=== PATIENT | female | born 1960 | race Caucasian/White ===

== ENCOUNTER 2019-01-20 10:36 | Emergency (ER) | payer OTHER, SELFPAY ==
[2019-01-20 10:43] VITALS: BP 145/78; PULSE 62; RESP 20; TEMP 36.8; O2SAT 96; BMI 35.4
[2019-01-20] MEDS: OXYMETAZOLINE NASAL SPRAY 15 ML 2 SPRAYS NASAL (11:04)
[2019-01-20 11:34] VITALS: BP 145/75; PULSE 76; RESP 20; O2SAT 96
--- NOTE | 2019-01-20 12:34 | ED_ITS ---
HPI - Epistaxis General Chief complaint: Nasal Problem Stated complaint: bleeding nose for 1.5 hours, yesterday Time Seen by Provider: 01/20/19 10:42 Source: patient and family Mode of arrival: ambulatory Limitations: no limitations History of Present Illness HPI Narrative: Patient complains of epistaxis that started 2 hours ago. She states that she has ?tried everything? at home, and has not been able to get the bleeding to stop. Patient states she also had an episode last night that lasted about 45 minutes, but stopped on its own. Patient states the bleeding is mainly out of the right nostril which is the side on which she had a crushing injury to the sinus years ago. She states she has had occasional nosebleeds but nothing like this. She has never had surgery on her sinuses. She sought an fruit grading supervisor in recent years, who did a scope of her sinuses and vocal cords, and stated that her anatomy appeared altered from the prior injury to the sinus. Patient denies any nasal congestion or cough recently. She has been sneezing a little more than usual. She denies any high blood pressure. She is not on any anticoagulants. Patient denies any recent trauma to her nose. She has not been blowing her nose excessively. Patient states she has a history of asthma and has had breast and lung cancer, but is otherwise fairly healthy. No other complaints at this time. Related Data Home Medications Medication Instructions Recorded Confirmed ALBUTEROL SULFATE (Ventolin / 1 - 2 puff INH #0 11/09/10 Proventil) trazodone 100 mg PO QDAY #0 03/07/13 OMEGA-3 FATTY ACIDS (FISH OIL) 900 mg PO QDAY #0 09/27/16 VITAMIN D (Vitamin D3) 5,000 u PO QDAY #0 09/27/16 [RED RICE YEAST] 1,200 mg PO QDAY #0 09/27/16 budesonide-formoterol [Symbicort] 2 inh INH BID #0 09/27/16 calcium carbonate [Tums Ultra] 1,000 mg PO #0 09/27/16 fluoxetine [Prozac] 20 mg PO QDAY #0 09/27/16 fluticasone propionate [Flovent 3 spray INH BID #0 09/27/16 HFA] letrozole [Femara] 2.5 mg PO QDAY #0 09/27/16 lithium carbonate 300 mg PO HS #0 09/27/16 multivitamin [Multiple Vitamins] 1 tab PO QDAY #0 09/27/16 omeprazole 40 mg PO BID #0 09/27/16 vitamin E 400 u PO QDAY #0 09/27/16 Previous Rx's Medication Instructions Recorded hydrocodone-chlorpheniramine 5 ml PO Q6HP PRN #115 ml 06/22/16 [Tussionex Pennkinetic ER] sucralfate [Carafate] 1 gm PO QID 14 Days #0 ml 09/27/16 Allergies Allergy/AdvReac Type Severity Reaction Status Date / Time aspirin Allergy Unknown Verified 01/20/19 10:48 chlorpheniramine Allergy Unknown Verified 01/20/19 10:48 codeine Allergy Unknown Verified 01/20/19 10:48 dextromethorphan Allergy Unknown Verified 01/20/19 10:48 gabapentin Allergy Unknown Verified 01/20/19 10:48 guaifenesin Allergy Unknown Verified 01/20/19 10:48 hydromorphone Allergy Unknown Verified 01/20/19 10:48 iodine Allergy Unknown Verified 01/20/19 10:48 latex Allergy Unknown Verified 01/20/19 10:48 montelukast Allergy Unknown Verified 01/20/19 10:48 pecan nut [PECAN NUT] Allergy Unknown Verified 01/20/19 10:48 pseudoephedrine Allergy Unknown Verified 01/20/19 10:48 shellfish derived Allergy Unknown Verified 01/20/19 10:48 [SHELLFISH DERIVED] Sulfa (Sulfonamide Allergy Unknown Verified 01/20/19 10:48 Antibiotics) walnut [WALNUT] Allergy Unknown Verified 01/20/19 10:48 Review of Systems Constitutional Denies chills, Denies fever(s), Denies lethargy and Denies weakness Eyes Denies change in vision, Denies eye discharge, Denies irritation and Denies loss of vision ENT Ears, Nose, Mouth, and Throat: Denies change in voice, Reports epistaxis, Denies neck pain and Denies sore throat Cardiovascular Denies chest pain, Denies irregular heart rhythm, Denies lightheadedness, Denies palpitations, Denies dyspnea, Denies dyspnea on exertion and Denies orthopnea Respiratory Denies cough, Denies dyspnea, Denies dyspnea on exertion and Denies wheezing Gastrointestinal Gastrointestinal: Denies abdominal pain, Denies change in bowel habits, Denies diarrhea, Denies nausea and Denies vomiting Genitourinary Denies hematuria, Denies flank pain, Denies urinary incontinence and Denies urinary urgency Musculoskeletal Denies neck pain Integumentary/Breasts Denies pruritus, Denies erythema, Denies rash and Denies wounds Neurologic Denies confusion, Denies loss of vision and Denies weakness Psychiatric Denies anxiety, Denies confusion, Denies depression, Denies homicidal ideation and Denies suicidal ideation Endocrine Denies palpitations Hematologic/Lymphatic Denies easy bruising Allergic/Immunologic Denies wheezing [facility] Medical History Injury of nasal sinus (Acute) Epistaxis (Acute) Radiation-induced esophagitis (Acute) Cough (Acute) Asthma (Acute) Gastritis (Acute) Social History Smoking Status: Never smoker Social History Smoking Status: Never smoker Exam Narrative Exam Narrative: The HEENT exam continued: Patient has clamps on her nose, but when these are removed, no epistaxis recurs. The patient has no bloody residue in either of her nares. Her nasal passages are clear, and no erosions or lesions are noted within the visible nasal passage on either side. There is no septal deviation that is apparent. No mucosal edema. Minimal mucus discharge is noted and is clear. Initial Vital Signs Initial Vital Signs: Vital Signs Temperature 98.2 F 01/20/19 10:43 Pulse Rate 62 01/20/19 10:43 Respiratory Rate 20 01/20/19 10:43 Blood Pressure 145/78 H 01/20/19 10:43 Pulse Oximetry 96 01/20/19 10:43 Const General: cooperative and well developed Nutritional Appearance: well nourished Orientation: alert, awake, oriented x3 and not confused [facility] Head: normocephalic and atraumatic Ears: external ears normal Nose: external nose normal, septum normal, No epistaxis (See above), No foreign body in naris, No mucous membranes and turbinates abnormal and No nasal discharge Face and sinus: sinuses nontender, face symmetric, no sinus tenderness and No dry mucous membranes Mouth: oral mucosae normal and moist mucous membranes Teeth and gingiva: dentition normal Throat: tonsils normal and uvula midline Eyes General: appearance normal, both eyes and all related structures Eyelids: eyelids normal Conjunctivae: conjunctivae normal Sclera: sclerae normal Pupils: PERRL EOM: EOM intact bilaterally Neck Neck: normal visual inspection, trachea midline, No lymphadenopathy, No midline deformity and No JVD Lymphatic: No lymphedema Chest Chest: normal inspection of the chest Resp Effort & Inspection: normal respiratory effort, able to speak in complete sentences, no respiratory distress and no use of accessory muscles Auscultation: clear to auscultation bilaterally, no rales, no rhonchi and no wheezes Cardio Rate: regular rate Rhythm: regular rhythm Heart Sounds: no click, no gallops, no murmurs and no rubs Pulses: normal peripheral pulses Back/Spine/Pelvis Back: No CVA tenderness Cervical Spine: cervical ROM normal and No pain with cervical ROM Thoracic/Lumbar Spine: thoracic and lumbar spine normal to inspection Skin General: no rashes or lesions noted, No jaundice and No petechiae Neuro General: alert, oriented x3, gait normal and no focal motor deficits Speech: speech normal Extrem General: full ROM, no clubbing, cyanosis or edema, no pedal edema and no calf tenderness Psych Appearance: well kempt Mental Status: mental status grossly normal Attitude: cooperative Thought Content: normal and suicidality Judgment: judgment good Course Course Narrative: The patient was not bleeding on exam when I evaluated her. I gave her a spray of Afrin on each side and replaced the clamps. I discussed with her that most likely, her bleeding is coming from about higher up, probably where her injury was, and as such, is not visible with the naso scope in the emergency department. As such, I have discussed with her that her options are to either let the area be, as it has stopped bleeding, and manage conservatively, or we can place nasal packing. We have discussed the pluses and minuses of both, but ultimately, patient and her decided that she will forego packing and try to avoid getting the bleeding started again. We have d iscussed that if it does start again, she should immediately replace the clamps and try to get it to stop on its own. She may need to return to the emergency department, should she continue to have issues with bleeding, at which time we will strongly consider packing. Patient did not have any recurrence of bleeding while in the ED. We have discussed the usual indications for return. Orders Ordered: Discontinued Medications Oxymetazoline HCl (Afrin) 2 sprays NASAL NOW ONE Stop: 01/20/19 11:03 Last Admin: 01/20/19 11:04 Dose: 2 sprays Vital Signs - 8 hr 01/20/19 10:43 01/20/19 11:34 Temperature 98.2 F Pulse Rate 62 76 Respiratory Rate 20 20 Blood Pressure 145/78 H 145/75 H Pulse Oximetry 96 96 MDM - Epistaxis Medical Records Attestation: I reviewed the patient's medical records. Discharge Plan Departure Patient Disposition: Home Clinical Impression: Epistaxis Discharge Date/Time: 01/20/19 11:35 Interventions: ED Discharge Assessment Last Done: 01/20/19 11:34 Instructions: DI for Nosebleed Prescriptions: No Action ALBUTEROL SULFATE (Ventolin / Proventil) 1 - 2 puff INH Qty: 0 RF: 0 trazodone 50 MG tablet 100 mg PO QDAY Qty: 0 RF: 0 hydrocodone-chlorpheniramine [Tussionex Pennkinetic ER] 115 ML suspension,extended rel 12 hr 5 ml PO Q6HP PRNQty: 115 RF: 0 omeprazole 40 MG capsule,delayed release(DR/EC) 40 mg PO BID Qty: 0 RF: 0 lithium carbonate 300 MG capsule 300 mg PO HS Qty: 0 RF: 0 multivitamin [Multiple Vitamins] 1 EACH tablet 1 tab PO QDAY Qty: 0 RF: 0 fluoxetine [Prozac] 40 MG capsule 20 mg PO QDAY Qty: 0 RF: 0 calcium carbonate [Tums Ultra] 1,000 MG tablet,chewable 1,000 mg PO Qty: 0 RF: 0 letrozole [Femara] 2.5 MG tablet 2.5 mg PO QDAY Qty: 0 RF: 0 OMEGA-3 FATTY ACIDS (FISH OIL) 900 mg PO QDAY Qty: 0 RF: 0 VITAMIN D (Vitamin D3) 5,000 u PO QDAY Qty: 0 RF: 0 [RED RICE YEAST] 1,200 mg PO QDAY Qty: 0 RF: 0 vitamin E 100 UNIT capsule 400 u PO QDAY Qty: 0 RF: 0 fluticasone propionate [Flovent HFA] 12 GM HFA aerosol inhaler 3 spray INH BID Qty: 0 RF: 0 budesonide-formoterol [Symbicort] 160 MCG/4.5 MCG HFA aerosol inhaler 2 inh INH BID Qty: 0 RF: 0 sucralfate [Carafate] 1 GM/10 ML suspension 1 gm PO QID 14 Days Qty: 0 RF: 0 Referrals: Fazal Veras MD [Physician] -
== END 2019-01-20 11:35 | disposition home or self-care (01) ==
PROVIDERS: Emergency Provider Emergency Medicine
DX: R04.0 Epistaxis (principal)
CPT/HCPCS: 99282

== ENCOUNTER 2020-12-06 14:20 | Inpatient (IN) | payer OTHER, SELFPAY ==
[2020-12-06] VITALS (19 sets, daily range): BP systolic 132–184; BP diastolic 63–89; PULSE 73–94; RESP 16–26; TEMP 36.4–37; O2SAT 88–98; BMI 33.6
--- NOTE | 2020-12-06 14:36 | DI.RAD.S_ITS ---
PROCEDURE: XR CHEST 1V INDICATIONS: chest pain TECHNIQUE: One view of the chest was acquired. COMPARISON: [facility], , CHEST 2 VIEW, 06/22/2016, 16:41. [facility], , CHEST 2 VIEW, 09/08/2015, 14:05. FINDINGS: Surgical changes and devices: Port-A-Cath from right-sided approach extends into the expected position of the distal SVC. Port-A-Cath is in normal position, from right-sided approach. No source of new chest pain is found.. Lungs and pleura: Lungs are clear. No pleural effusions or pneumothorax. Mediastinum: Mediastinal contours appear normal. Heart size is normal. Bones and chest wall: No suspicious bony lesions. Overlying soft tissues appear unremarkable. IMPRESSION: Port-A-Cath in normal position from right-sided approach. No source of new pain is seen. Dictated by: Dwaine Mccain M.D. on 12/06/2020 at 14:56 Approved by: Dwaine Mccain M.D. on 12/06/2020 at 14:57
--- NOTE | 2020-12-06 14:52 | ED_ITS ---
HPI - SOB/Dyspnea General Chief Complaint: Shortness of Breath/Dyspnea Stated Complaint: shortness breath/ asthma/ thrush/ cancer patient Time Seen by Provider: 12/06/20 14:51 Source: patient and family Mode of arrival: Ambulatory Limitations: no limitations History of Present Illness HPI Narrative: This is a 59-year-old female comes emergency department with complaint of shortness of breath. Patient states she was walking today and developed some increasing shortness of breath. She has had some mild chills but she had immunotherapy treatment recently. Fevers. She has had some cough with some greenish productive sputum, she did develop some chest pain today which improved after she was put on oxygen here in the emergency department. She has had some nausea but no vomiting. She has had some sweats. She denies any swelling in her extremities. Patient has known metastatic lung cancer as well as history of breast cancer. She is on Synthroid, she also has a history of asthma and is on Flovent, albuterol and Symbicort. She was recently placed on a Z-Jeb and prednisone on November [address] scan on the 07 of November showing some increasing changes in her lungs that were unclear if it was worsening metastatic lung cancer versus a inflammatory or infectious change. Patient has completed her prednisone. She follows with Dr. Wong as her primary care physician. Her PCP is Dr. Baker at the [facility]. Tobacco, no illicit or ETOH. Patient has had a history of right knee surgery, cholecystectomy and bilateral mastectomy. She does have a right sided port. Related Data Home Medications Medication Instructions Recorded Confirmed ALBUTEROL SULFATE (Ventolin / 1 - 2 puff INH #0 11/09/10 07/18/19 Proventil) VITAMIN D (Vitamin D3) 5,000 u PO QDAY #0 09/27/16 07/18/19 budesonide-formoterol [Symbicort] 2 inh INH BID #0 09/27/16 07/18/19 fluoxetine [Prozac] 20 mg PO QDAY #0 09/27/16 12/06/20 multivitamin [Multiple Vitamins] 1 tab PO QDAY #0 09/27/16 07/18/19 budesonide-formoterol INHALATION 07/18/19 07/18/19 letrozole 2.5 mg tablet 2.5 mg PO DAILY 07/18/19 12/06/20 meclizine 25 mg tablet 25 mg PO DAILY 07/18/19 07/18/19 Allergies Allergy/AdvReac Type Severity Reaction Status Date / Time adhesive Allergy Unknown Verified 12/06/20 15:53 aspirin Allergy Unknown Verified 07/18/19 13:19 chlorpheniramine Allergy Unknown Verified 07/18/19 13:19 codeine Allergy Unknown Verified 07/18/19 13:19 dextromethorphan Allergy Unknown Verified 07/18/19 13:19 gabapentin Allergy Unknown Verified 07/18/19 13:19 guaifenesin Allergy Unknown Verified 07/18/19 13:19 hydromorphone Allergy Unknown Verified 07/18/19 13:19 iodine Allergy Unknown Verified 07/18/19 13:19 latex Allergy Unknown Verified 01/20/19 10:48 montelukast Allergy Unknown Verified 01/20/19 10:48 pecan nut [PECAN NUT] Allergy Unknown Verified 01/20/19 10:48 pseudoephedrine Allergy Unknown Verified 01/20/19 10:48 shellfish derived Allergy Unknown Verified 01/20/19 10:48 [SHELLFISH DERIVED] Sulfa (Sulfonamide Allergy Unknown Verified 01/20/19 10:48 Antibiotics) walnut [WALNUT] Allergy Unknown Verified 01/20/19 10:48 Review of Systems Review of Systems ROS Unobtainable: All systems reviewed & are unremarkable except as noted in HPI and below Patient History Medical History Acute idiopathic pericarditis Anxiety Asthma Carcinoma of left lung Cough Epistaxis Gastritis Hyperglycemia Hyperlipidemia Hyperthyroidism Injury of nasal sinus Insomnia Invasive ductal carcinoma of left breast in female Migraine Radiation-induced esophagitis Vertigo Social History household members: spouse Smoking Status: Never smoker Smoking Status: Never smoker alcohol intake frequency: 0-2 drinks per day Substance Use Type: does not use Exam Narrative Exam Narrative: GENERAL: Alert and oriented x three, well-nourished female in mild distress. HEENT: Head normocephalic, atraumatic, EOMI, pupils reactive, face symmetric, moist mucous membranes NECK: Supple, full range of motion CARDIOVASCULAR: Regular rate and rhythm without murmurs, rubs or gallops. Port on right chest. RESPIRATORY: Breath sounds equal bilaterally, no wheezes rales or rhonchi appreciated. No tachypnea. ABDOMEN: Soft, nontender. Normoactive bowel sounds all 4 quadrants. No guarding or rebound, rigidity, no mass : No CVA tenderness EXTREMITIES: Normal range of motion, no edema. Lower extremities appear equal in Circumference. Neurovascularly intact NEUROLOGICAL: Cranial nerves II through XII grossly intact. Moving all extremities SKIN: Warm, dry, no petechiae, no rashes or lesions. Initial Vital Signs Initial Vital Signs: Vital Signs Temperature 98.6 F 12/06/20 14:30 Pulse Rate 94 H 12/06/20 14:30 Respiratory Rate 18 12/06/20 14:30 Blood Pressure 142/89 H 12/06/20 14:30 Pulse Oximetry 90 L 12/06/20 14:30 Course Orders Ordered: ED Orders 12/06/20 14:36 XR chest 1V Stat EKG-12 Lead Stat 12/06/20 14:51 COVID19 Stat 12/06/20 15:15 Complete Blood Count AUTO DIFF Stat Comprehensive Metabolic Panel Stat Lactate (Lactic Acid) Stat Lipase Stat NT-proBNP (BNP-Adult 18+) Stat Partial Thromboplastin Time Stat Procalcitonin Stat Prothrombin Time INR Stat Troponin & CK Cardiac Panel Stat 12/06/20 15:49 CT angio chest PE protocol Stat 12/06/20 17:35 Respiratory Panel (Film Array) Stat Discontinued Medications Albuterol (Albuterol 2.5 Mg/3 Ml Neb (Adult)) 20 mg INH NOW ONE Stop: 12/06/20 17:19 Albuterol (Albuterol 2.5 Mg/3 Ml Neb (Adult)) 2.5 mg INH NOW ONE Stop: 12/06/20 17:29 Last Admin: 12/06/20 17:29 Dose: 2.5 mg Documented by: BRADEN Diphenhydramine HCl (Diphenhydramine 50 Mg/Ml Vial) 50 mg IV NOW ONE Stop: 12/06/20 15:46 Last Admin: 12/06/20 15:54 Dose: 50 mg Documented by: CHINEDU Methylprednisolone (Methylprednisolone 125 Mg/2 Ml Vial) 125 mg IV NOW ONE Stop: 12/06/20 15:46 Last Admin: 12/06/20 16:00 Dose: Not Given Documented by: ALY Methylprednisolone (Methylprednisolone 125 Mg/2 Ml Vial) 125 mg IV NOW ONE Stop: 12/06/20 15:51 Last Admin: 12/06/20 15:54 Dose: 125 mg Documented by: CHINEDU Morphine Sulfate (Morphine 2 Mg/Ml Inj) 2 mg IV NOW ONE Stop: 12/06/20 17:40 Last Admin: 12/06/20 17:44 Dose: 2 mg Documented by: CHINEDU Vital Signs Vital signs: Vital Signs - 8 hr 12/06/20 14:30 12/06/20 14:38 12/06/20 14:43 Temperature 98.6 F Pulse Rate 94 H 87 Respiratory Rate 18 24 Blood Pressure 142/89 H Pulse Oximetry 90 L 90 L 95 12/06/20 15:00 12/06/20 15:01 12/06/20 15:30 Temperature Pulse Rate 83 81 76 Respiratory Rate 26 H Blood Pressure 145/70 H 140/67 Pulse Oximetry 95 95 96 12/06/20 16:04 12/06/20 16:06 12/06/20 16:32 Temperature Pulse Rate 83 77 76 Respiratory Rate Blood Pressure 141/65 H Pulse Oximetry 90 L 98 98 12/06/20 16:33 12/06/20 16:50 12/06/20 17:00 Temperature Pulse Rate 75 73 76 Respiratory Rate Blood Pressure 184/88 H 134/63 Pulse Oximetry 98 94 94 12/06/20 17:01 12/06/20 17:29 12/06/20 17:30 Temperature Pulse Rate 76 75 79 Respiratory Rate 16 Blood Pressure 135/63 132/64 Pulse Oximetry 94 89 L 92 12/06/20 17:37 Temperature Pulse Rate Respiratory Rate Blood Pressure Pulse Oximetry 88 L MDM - SOB/Dyspnea Lab Data Attestation: I reviewed the patient's lab results. Result diagrams: 12/06/20 15:15 12/06/20 15:15 Labs: Lab Results 12/06/20 12/06/20 12/06/20 Range/Units 14:51 15:15 15:15 WBC 7.5 (4.5-11.0) X10^3/uL RBC 4.50 (4.0-5.2) X10^6/uL Hgb 12.9 (12.0-16.0) g/dL Hct 39.3 (36-46) % MCV 87.2 (80-100) fL MCH 28.6 (26-34) PG MCHC 32.8 (30-36) % RDW 13.5 (11.6-14.8) % Plt Count 397 (150-400) X10^3/uL Neut % (Auto) 68.5 (50-75) % Lymph % (Auto) 19.1 L (25-40) % [place] % (Auto) 9.1 (3-14) % Eos % (Auto) 2.8 (2-4) % Baso % (Auto) 0.5 (0-2) % Neut # (Auto) 5100 (5204-1002) /uL Lymph # (Auto) 1400 (5430-1943) /uL [place] # (Auto) 700 (0-900) /uL Eos # (Auto) 200 (0-450) /uL Baso # (Auto) 0 (0-100) /uL PT 13.1 H (10.1-12.7) SECONDS INR 1.1 (0.9-1.3) APTT 140 H* (26.4-36.2) SECONDS Sodium (137-145) mmol/L Potassium (3.4-5.1) mmol/L Chloride (98-107) mmol/L Carbon Dioxide (22-32) mmol/L BUN (7-17) mg/dL Creatinine (0.52-1.04) mg/dL Estimated GFR (>60) mL/min BUN/Creatinine Ratio (6-22) Glucose (80-110) mg/dL Lactate (0.7-2.1) mmol/L Calcium (8.4-10.2) mg/dL Total Bilirubin (0.2-1.3) mg/dL AST (14-36) IU/L ALT (<35) IU/L Alkaline Phosphatase (38-126) U/L Total Creatine Kinase (30-135) U/L CK-MB (CK-2) CK-MB (CK-2) Rel Index Troponin I (0.01-0.034) ng/mL NT-Pro-B Natriuret Pep (<125) pg/mL Total Protein (6.3-8.2) g/dL Albumin (3.5-5.0) g/dL Globulin (1.7-4.1) g/dL Albumin/Globulin Ratio (1.0-2.8) Lipase (23-300) U/L Procalcitonin (<0.5) ng/mL Chlamy pneumoniae PCR (Not Detect) Adenovirus (PCR) (Not Detect) B.parapertussis DNA PCR (Not Detect) Coronavirus OC43 (PCR) (Not Detect) Coronavirus HKU1 (PCR) (Not Detect) Coronavirus 229E (PCR) (Not Detect) SARS-CoV-2 (PCR) Negative (Negative) Coronavirus NL63 (PCR) (Not Detect) Human Metapneumovir PCR (Not Detect) Influenza Type A (PCR) (Not Detect) Influenza Type B (PCR) (Not Detect) M. pneumoniae (PCR) (Not Detect) Parainfluenza 1 (PCR) (Not Detect) Parainfluenza 2 (PCR) (Not Detect) Parainfluenza 3 (PCR) (Not Detect) Parainfluenza 4 (PCR) (Not Detect) RSV (PCR) (Not Detect) Entero/Rhino (PCR) (Not Detect) 12/06/20 12/06/20 12/06/20 Range/Units 15:15 15:15 15:15 WBC (4.5-11.0) X10^3/uL RBC (4.0-5.2) X10^6/uL Hgb (12.0-16.0) g/dL Hct (36-46) % MCV (80-100) fL MCH (26-34) PG MCHC (30-36) % RDW (11.6-14.8) % Plt Count (150-400) X10^3/uL Neut % (Auto) (50-75) % Lymph % (Auto) (25-40) % [place] % (Auto) (3-14) % Eos % (Auto) (2-4) % Baso % (Auto) (0-2) % Neut # (Auto) (5187-9194) /uL Lymph # (Auto) (7144-4140) /uL [place] # (Auto) (0-900) /uL Eos # (Auto) (0-450) /uL Baso # (Auto) (0-100) /uL PT (10.1-12.7) SECONDS INR (0.9-1.3) APTT (26.4-36.2) SECONDS Sodium 134 L (137-145) mmol/L Potassium 3.7 (3.4-5.1) mmol/L Chloride 101 (98-107) mmol/L Carbon Dioxide 29 (22-32) mmol/L BUN 10 (7-17) mg/dL Creatinine 0.84 (0.52-1.04) mg/dL Estimated GFR > 60.0 (>60) mL/min BUN/Creatinine Ratio 11.9 (6-22) Glucose 110 (80-110) mg/dL Lactate 1.0 (0.7-2.1) mmol/L Calcium 9.4 (8.4-10.2) mg/dL Total Bilirubin 0.2 (0.2-1.3) mg/dL AST 38 H (14-36) IU/L ALT 50 H (<35) IU/L Alkaline Phosphatase 140 H (38-126) U/L Total Creatine Kinase 56 (30-135) U/L CK-MB (CK-2) TNP CK-MB (CK-2) Rel Index TNP Troponin I < 0.012 (0.01-0.034) ng/mL NT-Pro-B Natriuret Pep (<125) pg/mL Total Protein 6.9 (6.3-8.2) g/dL Albumin 4.0 (3.5-5.0) g/dL Globulin 2.9 (1.7-4.1) g/dL Albumin/Globulin Ratio 1.4 (1.0-2.8) Lipase 40 (23-300) U/L Procalcitonin 0.04 (<0.5) ng/mL Chlamy pneumoniae PCR (Not Detect) Adenovirus (PCR) (Not Detect) B.parapertussis DNA PCR (Not Detect) Coronavirus OC43 (PCR) (Not Detect) Coronavirus HKU1 (PCR) (Not Detect) Coronavirus 229E (PCR) (Not Detect) SARS-CoV-2 (PCR) (Negative) Coronavirus NL63 (PCR) (Not Detect) Human Metapneumovir PCR (Not Detect) Influenza Type A (PCR) (Not Detect) Influenza Type B (PCR) (Not Detect) M. pneumoniae (PCR) (Not Detect) Parainfluenza 1 (PCR) (Not Detect) Parainfluenza 2 (PCR) (Not Detect) Parainfluenza 3 (PCR) (Not Detect) Parainfluenza 4 (PCR) (Not Detect) RSV (PCR) (Not Detect) Entero/Rhino (PCR) (Not Detect) 12/06/20 12/06/20 Range/Units 15:15 17:35 WBC (4.5-11.0) X10^3/uL RBC (4.0-5.2) X10^6/uL Hgb (12.0-16.0) g/dL Hct (36-46) % MCV (80-100) fL MCH (26-34) PG MCHC (30-36) % RDW (11.6-14.8) % Plt Count (150-400) X10^3/uL Neut % (Auto) (50-75) % Lymph % (Auto) (25-40) % [place] % (Auto) (3-14) % Eos % (Auto) (2-4) % Baso % (Auto) (0-2) % Neut # (Auto) (5910-0858) /uL Lymph # (Auto) (9506-3647) /uL [place] # (Auto) (0-900) /uL Eos # (Auto) (0-450) /uL Baso # (Auto) (0-100) /uL PT (10.1-12.7) SECONDS INR (0.9-1.3) APTT (26.4-36.2) SECONDS Sodium (137-145) mmol/L Potassium (3.4-5.1) mmol/L Chloride (98-107) mmol/L Carbon Dioxide (22-32) mmol/L BUN (7-17) mg/dL Creatinine (0.52-1.04) mg/dL Estimated GFR (>60) mL/min BUN/Creatinine Ratio (6-22) Glucose (80-110) mg/dL Lactate (0.7-2.1) mmol/L Calcium (8.4-10.2) mg/dL Total Bilirubin (0.2-1.3) mg/dL AST (14-36) IU/L ALT (<35) IU/L Alkaline Phosphatase (38-126) U/L Total Creatine Kinase (30-135) U/L CK-MB (CK-2) CK-MB (CK-2) Rel Index Troponin I (0.01-0.034) ng/mL NT-Pro-B Natriuret Pep 62 (<125) pg/mL Total Protein (6.3-8.2) g/dL Albumin (3.5-5.0) g/dL Globulin (1.7-4.1) g/dL Albumin/Globulin Ratio (1.0-2.8) Lipase (23-300) U/L Procalcitonin (<0.5) ng/mL Chlamy pneumoniae PCR Not detected (Not Detect) Adenovirus (PCR) Not detected (Not Detect) B.parapertussis DNA PCR Not detected (Not Detect) Coronavirus OC43 (PCR) Not detected (Not Detect) Coronavirus HKU1 (PCR) Not detected (Not Detect) Coronavirus 229E (PCR) Not detected (Not Detect) SARS-CoV-2 (PCR) Not detected (Negative) Coronavirus NL63 (PCR) Not detected (Not Detect) Human Metapneumovir PCR Not detected (Not Detect) Influenza Type A (PCR) Not detected (Not Detect) Influenza Type B (PCR) Not detected (Not Detect) M. pneumoniae (PCR) Not detected (Not Detect) Parainfluenza 1 (PCR) Not detected (Not Detect) Parainfluenza 2 (PCR) Not detected (Not Detect) Parainfluenza 3 (PCR) Not detected (Not Detect) Parainfluenza 4 (PCR) Not detected (Not Detect) RSV (PCR) Not detected (Not Detect) Entero/Rhino (PCR) Not detected (Not Detect) Urine Dip Bedside Urine Glucose Negative Bedside Urine Bilirubin - Negative Bedside Urine Ketone - Negative Urine Specific [place] 1.010 Bedside Urine Occult Blood - Negative Bedside Urine pH 6.5 Bedside Urine Protein - Negative Bedside Urine Urobilinogen - Negative Bedside Urine Nitrite - Negative Bedside Urine Leukocytes - Negative Esterase Imaging Data Chest x-ray: Radiologist's Impression: [address] [id number] ReportSigned Patient: Yennifer Boo IMR#: [id number]: 9Acct:[id number]/Sex: 59 / FDate of Service: 12/06/20Loc: EDAccession Number: [id number] Procedure: XR chest 1V Ordering Provider: Starla Bagley D.O. PROCEDURE: XR CHEST 1V INDICATIONS: chest pain TECHNIQUE: One view of the chest was acquired. COMPARISON: [facility], CHEST 2 VIEW, 06/22/2016, 16:41. [facility], CHEST 2 VIEW, 09/08/2015, 14:05. FINDINGS: Surgical changes and devices: Port-A-Cath from right-sided approach extends into the expected position of the distal SVC. Port-A-Cath is in normal position, from right-sided approach. No source of new chest pain is found.. Lungs and pleura: Lungs are clear. No pleural effusions or pneumothorax. Mediastinum: Mediastinal contours appear normal. Heart size is normal. Bones and chest wall: No suspicious bony lesions. Overlying soft tissues appear unremarkable. IMPRESSION: Port-A-Cath in normal position from right-sided approach. No source of new pain is seen. Dictated by: Dwaine Mccain M.D. on 12/06/2020 at 14:56 Approved by: Dwaine Mccain M.D. on 12/06/2020 at 14:57 CT scan - chest: Radiologist's Impression: [address] [id number] Scan ReportSigned Patient: Yennifer Boo [facility]#: [id number]: [id number]:[id number]/Sex: 59 / FDate of Service: 12/06/20Loc: EDAccession Number: [id number] Procedure: CT angio chest PE protocol Ordering Provider: Starla Bagley D.O. PROCEDURE: CT ANGIO CHEST PE PROTOCOL INDICATIONS: sob, low O2, lung cancer TECHNIQUE: After the administration of intravenous contrast, 2 mm thick sections acquired from the pulmonary apices to the posterior costophrenic angles. 3-dimensional maximum intensity projection (MIP) coronal and sagittal reformats were then acquired through the thorax. For radiation dose reduction, the following was used: automated exposure control, adjustment of mA and/or kV according to patient size. The patient has an iodine allergy and was pre-medicated prior to this study, without an immediate contrast reaction experienced. COMPARISON: [facility], CT, CT CHEST ABDOMEN PELVIS WITH CONTRAST, 11/07/2020, 11:47. [facility], CT, CT CHEST ABDOMEN PELVIS WITH CONTRAST, 07/10/2020, 8:05. FINDINGS: Image quality: Excellent. Pulmonary arteries: Pulmonary arteries are normal in size, and demonstrate no intraluminal filling defects to suggest central pulmonary embolism. Lungs and pleura: Several nodular pulmonary opacities are seen, which are more prominent inferiorly and within the lateral lungs. Compared to the 11/07/2020 examination, these are clearly much worse. No pneumothorax or pleural effusions are seen. The central airways are patent. Mediastinum: Heart size is normal, without pericardial effusion. No mediastinal or hilar adenopathy. Thoracic aorta is normal in caliber and enhancement. Esophagus is normal in caliber. There is a small hiatal hernia. Bones and chest wall: No suspicious bony lesions. Ribs and thoracic spine appear intact throughout. Age-appropriate bony degenerative changes are seen. There is a right-sided chest port seen. Thyroid gland is not well seen. No axillary or supraclavicular adenopathy. Mastectomy changes are seen. Left axillary clips are seen. Abdomen: The liver is enlarged and demonstrates diffuse fatty liver infiltration. Along the posterior liver, there is a simple cyst seen. No liver masses are seen. Cholecystectomy clips are seen. The visualized portions of the upper abdominal structures are otherwise unremarkable for imaging technique. IMPRESSION: Negative for pulmonary embolism. Interval worsening of the nodular opacities within the lungs, which is most suspicious for worsening of metastatic disease. Differential diagnosis would also include infection, including COVID pneumonia, yet this is considered to be less likely. Incidental note is made of: Right-sided chest port Small hiatal hernia Cholecystectomy Fatty liver infiltration Dictated by: Charles Raymundo M.D. on 12/06/2020 at 15:48 Approved by: Charles Raymundo M.D. on 12/06/2020 at 16:03 ECG Data Attestation: I personally reviewed and interpreted this ECG as follows: Interpretation: Sinus rhythm rate 85 ,[place] 132 QRS 88, QTC of [address] elevation depression. 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 Patient also has history of breast cancer. She has had increasing shortness of breath and a home pulse ox of 88%. Patient is high risk for blood clot but CT angiography is negative for pulmonary embolism, she has had interval worsening of nodular opacities within lung suspicious for worsening metastatic disease differential could include infection including COVID pneumonia. This is considered less likely on imaging today swab is negative. She has had some green productive sputum and chills. She was recently on prednisone and a Zithromax but is now having continued symptoms and now a new hypoxia. Patient did continue to have chest pain in department but troponin was negative on my suspicion for cardiac event is low. She did not have any acute EKG changes. She had some mildly elevated liver enzymes but no other major abnormalities that would suggest infectious causes at this time. Spoke with the hospitalist who does ask for respiratory panel. Was also noted that patient had a 2nd breathing treatment department although she was not wheezy, after this was stopped immediately on room air she was 88%. Patient states her normal oxygen level has been 96% with no priors low except at home today. Discharge Plan Departure Patient Disposition: Admitted As Inpatient Clinical Impression: Lung cancer, Low O2 saturation Admit Date/Time: 12/06/20 17:49 Admit Provider: Lizandro Betnley
[2020-12-06 15:11] LABS: COVID19 -Nasal RAPID Negative (Negative)
[2020-12-06 15:21] LABS: Add Manual Diff / Slide Review NO; Basophils Absolute Auto 0 /uL (0-100); Basophils Percent Auto 0.5 % (0-2); Eosinophils Absolute Auto 200 /uL (0-450); Eosinophils Percent Auto 2.8 % (2-4); Hematocrit 39.3 % (36-46); Hemoglobin 12.9 g/dL (12.0-16.0); Lymphocytes Absolute Auto 1400 /uL (1100-4500); Lymphocytes Percent Auto 19.1 % (25-40); Mean Corpuscular HGB Conc 32.8 % (30-36); Mean Corpuscular Hemoglobin 28.6 PG (26-34); Mean Corpuscular Volume 87.2 fL (80-100); Monocytes Absolute Auto 700 /uL (0-900); Monocytes Percent Auto 9.1 % (3-14); Neutrophils Absolute Auto 5100 /uL (1500-7000); Neutrophils Percent Auto 68.5 % (50-75); Platelet Count 397 X10^3/uL (150-400); Red Cell Distribution Width 13.5 % (11.6-14.8); White Blood Cell Count 7.5 X10^3/uL (4.5-11.0)
[2020-12-06 15:29] LABS: INR 1.1 (0.9-1.3); Prothrombin Time 13.1 SECONDS (10.1-12.7)
[2020-12-06 15:33] LABS: Alanine Aminotransferase 50 IU/L (<35); Albumin Globulin Ratio 1.4 (1.0-2.8); Alkaline Phosphatase 140 U/L (38-126); Aspartate Aminotransferase 38 IU/L (14-36); BUN Creatinine Ratio 11.9 (6-22); Bilirubin Total 0.2 mg/dL (0.2-1.3); Blood Urea Nitrogen 10 mg/dL (7-17); Calcium 9.4 mg/dL (8.4-10.2); Carbon Dioxide 29 mmol/L (22-32); Chloride 101 mmol/L (98-107); Creatine Kinase 56 U/L (30-135); Estimated Glomerular Filt Rate > 60.0 mL/min (>60); Globulin 2.9 g/dL (1.7-4.1); Glucose 110 mg/dL (80-110); HEMOLYSIS < 15 (0-50); Lipase 40 U/L (23-300); Potassium 3.7 mmol/L (3.4-5.1); Sodium 134 mmol/L (137-145); Total Protein 6.9 g/dL (6.3-8.2)
[2020-12-06 15:44] LABS: PTT Partial Thromboplastin Tim 140 SECONDS (26.4-36.2)
[2020-12-06 15:45] LABS: Troponin I < 0.012 ng/mL (0.01-0.034)
--- NOTE | 2020-12-06 15:49 | DI.CT.S_ITS ---
PROCEDURE: CT ANGIO CHEST PE PROTOCOL INDICATIONS: sob, low O2, lung cancer TECHNIQUE: After the administration of intravenous contrast, 2 mm thick sections acquired from the pulmonary apices to the posterior costophrenic angles. 3-dimensional maximum intensity projection (MIP) coronal and sagittal reformats were then acquired through the thorax. For radiation dose reduction, the following was used: automated exposure control, adjustment of mA and/or kV according to patient size. The patient has an iodine allergy and was pre-medicated prior to this study, without an immediate contrast reaction experienced. COMPARISON: [facility], CT, CT CHEST ABDOMEN PELVIS WITH CONTRAST, 11/07/2020, 11:47. [facility], CT, CT CHEST ABDOMEN PELVIS WITH CONTRAST, 07/10/2020, 8:05. FINDINGS: Image quality: Excellent. Pulmonary arteries: Pulmonary arteries are normal in size, and demonstrate no intraluminal filling defects to suggest central pulmonary embolism. Lungs and pleura: Several nodular pulmonary opacities are seen, which are more prominent inferiorly and within the lateral lungs. Compared to the 11/07/2020 examination, these are clearly much worse. No pneumothorax or pleural effusions are seen. The central airways are patent. Mediastinum: Heart size is normal, without pericardial effusion. No mediastinal or hilar adenopathy. Thoracic aorta is normal in caliber and enhancement. Esophagus is normal in caliber. There is a small hiatal hernia. Bones and chest wall: No suspicious bony lesions. Ribs and thoracic spine appear intact throughout. Age-appropriate bony degenerative changes are seen. There is a right-sided chest port seen. Thyroid gland is not well seen. No axillary or supraclavicular adenopathy. Mastectomy changes are seen. Left axillary clips are seen. Abdomen: The liver is enlarged and demonstrates diffuse fatty liver infiltration. Along the posterior liver, there is a simple cyst seen. No liver masses are seen. Cholecystectomy clips are seen. The visualized portions of the upper abdominal structures are otherwise unremarkable for imaging technique. IMPRESSION: Negative for pulmonary embolism. Interval worsening of the nodular opacities within the lungs, which is most suspicious for worsening of metastatic disease. Differential diagnosis would also include infection, including COVID pneumonia, yet this is considered to be less likely. Incidental note is made of: Right-sided chest port Small hiatal hernia Cholecystectomy Fatty liver infiltration Dictated by: Charles Raymundo M.D. on 12/06/2020 at 15:48 Approved by: Charles Raymundo M.D. on 12/06/2020 at 16:03
[2020-12-06 15:51] LABS: Procalcitonin 0.04 ng/mL (<0.5)
[2020-12-06] MEDS: diphenhydrAMINE 50 MG/ML VIAL IV (15:54)
[2020-12-06] MEDS: methylPREDNISolone 125 MG/2 ML VIAL IV (15:54)
[2020-12-06 16:25] LABS: NT-proBNP (BNP-Adult 18+) 62 pg/mL (<125)
[2020-12-06] MEDS: ALBUTEROL 2.5 MG/3 ML NEB (ADULT) INH (17:29)
[2020-12-06] MEDS: MORPHINE 2 MG/ML INJ IV (17:44)
[2020-12-06 18:41] LABS: Adenovirus Not Detected (Not Detect); Bordetella pertussis Not Detected (Not Detect); Chlamydophila pneumoniae Not Detected (Not Detect); Coronavirus 229E Not Detected (Not Detect); Coronavirus HKU1 Not Detected (Not Detect); Coronavirus NL 63 Not Detected (Not Detect); Coronavirus OC43 Not Detected (Not Detect); Human Metapneumovirus Not Detected (Not Detect); Human Rhinovirus/Enterovirus Not Detected (Not Detect); Influenza A Not Detected (Not Detect); Influenza B Not Detected (Not Detect); Mycoplasma pneumoniae Not Detected (Not Detect); Parainfluenza Virus 1 Not Detected (Not Detect); Parainfluenza Virus 2 Not Detected (Not Detect); Parainfluenza Virus 3 Not Detected (Not Detect); Parainfluenza Virus 4 Not Detected (Not Detect); Respiratory Syncytial Virus Not Detected (Not Detect); SARS- CoV-2 Not Detected (Not Detecte)
--- NOTE | 2020-12-06 20:13 | P.HP_ITS ---
History of Present Illness History of Present Illness Date Patient Seen: 12/06/20 Time Patient Seen: 20:13 Chief complaint: shortness breath/ asthma/ thrush/ cancer patient Narrative: Yennifer Boo is a pleasant 59 y.o. 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 Stated her normal oxygen saturation is 96% and after the treatment, her oxygen went down to 88. She used her albuteral inhaler, then did a nebulizer with no effect. She had been previously treated for a pneumonia on 11/14 with a z-pack course and oral prednisone 2 mg which she completed. Her oncologist is Dr. Mcleod at [facility] and has a customer support analyst Dr. Thomas at [facility] in [place]. She initially had chills after receiving the pembrolizumab and has had a mildly productive cough with green sputum which has improved since completing the z- pack. 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 Denies dysrea, abdominal pain, diarrhea or constipation. She has had oral thrush which was resistant to fluconazole and was prescribed oral itraconazole 200 mg once daily yesterday. She was seen yesterday at her oncologist's office for cycle 11 of pembrolizumab treatment. Review of his note indicated she should increase the prednisone she was taking from 2 mg to 10 mg daily for increased shortness of breath and to hold immunotherapy. CT angio today ruled out PE but indicated worsening metastatic lesions compared to the 07/10/[address] done at [facility]. She was administered an albuterol nebulizer, 2 doses of IV methylprednisolone 125 mg and one dose of IV benadryl 50 mg in the ED. and On presentation to the ED, her oxygen saturation was 90% on room air and is presently 94% on 2 liters. She is afebrile with a blood pressure of 146/79, heart rate 84, respiratory rate 20, oxygen saturation of 94% on 2 L, she weighs 91.6 kg with a BMI of 33.6. WBC largely within normal limits, she is mildly hyponatremic at 134, rest of her chemistries are within normal limits, she does have mildly elevated liver enzymes with an AST of 38, ALT 50, alk-phos 140, procalcitonin is negative, viral serology is negative as well as COVID-19 PCR. Patient History Medical History (Updated 12/06/20 @ 20:25 by JENN Mckay) Acute idiopathic pericarditis Anxiety Asthma Carcinoma of left lung Cough Epistaxis Gastritis History of malignant neoplasm of both breasts Hyperglycemia Hyperlipidemia Hyperthyroidism Injury of nasal sinus Insomnia Invasive ductal carcinoma of left breast in female Migraine Port-A-Cath in place Radiation-induced esophagitis Vertigo Surgical History H/O bilateral mastectomy History of right knee joint replacement Hx of cholecystectomy Hx of lymph node excision Family & Social History Family History Mother Early onset Alzheimer's dementia Brother Early onset Alzheimer's dementia Father Myocardial infarct CVA (cerebral vascular accident) Brother Asthma Sister Nasopharyngeal cancer Social History: household members spouse Safety & Behavioral: Feels Safe in Current Yes Environment Been Physically Hurt or No Threatened By a Person Suicidal Ideation Description None Suicide Plan Description No Plan Tobacco & Substance use: Smoking Status Never smoker alcohol intake frequency 0-2 drinks per day Substance Use Type does not use Meds Home Medications and Allergies Home Medications Medication Instructions Recorded Confirmed Type ALBUTEROL SULFATE (Ventolin / 1 - 2 puff INH #0 11/09/10 07/18/19 History Proventil) VITAMIN D (Vitamin D3) 5,000 u PO QDAY #0 09/27/16 12/06/20 History budesonide-formoterol [Symbicort] 2 inh INH BID #0 09/27/16 07/18/19 History fluoxetine [Prozac] 40 mg PO QDAY #0 09/27/16 12/06/20 History multivitamin [Multiple Vitamins] 1 tab PO QDAY #0 09/27/16 12/06/20 History budesonide-formoterol INHALATION 07/18/19 07/18/19 History letrozole 2.5 mg tablet 2.5 mg PO DAILY 07/18/19 12/06/20 History meclizine 25 mg tablet 25 mg PO PRN PRN 07/18/19 12/06/20 History cetirizine [Zyrtec] 10 mg PO DAILY 12/06/20 12/06/20 History levothyroxine [Synthroid] 150 mcg PO DAILY 12/06/20 12/06/20 History pantoprazole [Protonix] 20 mg PO DAILY 12/06/20 12/06/20 History Allergies Allergy/AdvReac Type Severity Reaction Status Date / Time adhesive Allergy Unknown Verified 12/06/20 15:53 aspirin Allergy Unknown Verified 07/18/19 13:19 chlorpheniramine Allergy Unknown Verified 07/18/19 13:19 codeine Allergy Unknown Verified 07/18/19 13:19 dextromethorphan Allergy Unknown Verified 07/18/19 13:19 gabapentin Allergy Unknown Verified 07/18/19 13:19 guaifenesin Allergy Unknown Verified 07/18/19 13:19 hydromorphone Allergy Unknown Verified 07/18/19 13:19 iodine Allergy Unknown Verified 07/18/19 13:19 latex Allergy Unknown Verified 01/20/19 10:48 montelukast Allergy Unknown Verified 01/20/19 10:48 pecan nut [PECAN NUT] Allergy Unknown Verified 01/20/19 10:48 pseudoephedrine Allergy Unknown Verified 01/20/19 10:48 shellfish derived Allergy Unknown Verified 01/20/19 10:48 [SHELLFISH DERIVED] Sulfa (Sulfonamide Allergy Unknown Verified 01/20/19 10:48 Antibiotics) walnut [WALNUT] Allergy Unknown Verified 01/20/19 10:48 Review of Systems Review of Systems ROS: Yes All systems reviewed with the patient and are negative except as otherwise documented Exam Vital Signs (past 8 hours): - 12/06/20 14:30 12/06/20 14:38 12/06/20 14:43 Temperature 98.6 F Pulse Rate 94 H 87 Respiratory Rate 18 24 Blood Pressure 142/89 H Pulse Oximetry 90 L 90 L 95 12/06/20 15:00 12/06/20 15:01 12/06/20 15:30 Temperature Pulse Rate 83 81 76 Respiratory Rate 26 H Blood Pressure 145/70 H 140/67 Pulse Oximetry 95 95 96 12/06/20 16:04 12/06/20 16:06 12/06/20 16:32 Temperature Pulse Rate 83 77 76 Respiratory Rate Blood Pressure 141/65 H Pulse Oximetry 90 L 98 98 12/06/20 16:33 12/06/20 16:50 12/06/20 17:00 Temperature Pulse Rate 75 73 76 Respiratory Rate Blood Pressure 184/88 H 134/63 Pulse Oximetry 98 94 94 12/06/20 17:01 12/06/20 17:29 12/06/20 17:30 Temperature Pulse Rate 76 75 79 Respiratory Rate 16 Blood Pressure 135/63 132/64 Pulse Oximetry 94 89 L 92 12/06/20 17:37 12/06/20 18:25 Temperature 97.6 F Pulse Rate 84 Respiratory Rate 20 Blood Pressure 146/79 H Pulse Oximetry 88 L 95 Oxygen Delivery Method Room Air Oxygen Flow Rate 2 Narrative Exam Narrative: Gen: Alert, oriented, well-developed 59 y.o. female, mildly anxious HEENT: normocephalic, atraumatic, conjunctiva clear, sclera non-icteric, oral mucosa pink and moist Neck: supple, full ROM, no JVD, trachea is midline Resp: Bilateral course lungs with faint wheezes, non-labored breathing CV: RRR, no murmur or rubs Abd: soft, non-tender, normoactive BTs Skin: no lesions or rashes, dry and intact Neuro: Alert and oriented X 4 w/no focal deficits. Speech clear and coherent. Extremities: moves all 4 extremities, is ambulatory, negative Milan?s sign Psyche: very pleasant, normal mood and affect. Objective Labs Result Diagrams: 12/06/20 15:15 12/06/20 15:15 Labs: Laboratory Results - last 24 hr 12/06/20 12/06/20 12/06/20 14:51 15:15 15:15 WBC 7.5 RBC 4.50 Hgb 12.9 Hct 39.3 MCV 87.2 MCH 28.6 MCHC 32.8 RDW 13.5 Plt Count 397 Neut % (Auto) 68.5 Lymph % (Auto) 19.1 L [place] % (Auto) 9.1 Eos % (Auto) 2.8 Baso % (Auto) 0.5 Neut # (Auto) 5100 Lymph # (Auto) 1400 [place] # (Auto) 700 Eos # (Auto) 200 Baso # (Auto) 0 PT 13.1 H INR 1.1 APTT 140 H* Sodium Potassium Chloride Carbon Dioxide BUN Creatinine Estimated GFR BUN/Creatinine Ratio Glucose Lactate Calcium Total Bilirubin AST ALT Alkaline Phosphatase Total Creatine Kinase CK-MB (CK-2) CK-MB (CK-2) Rel Index Troponin I NT-Pro-B Natriuret Pep Total Protein Albumin Globulin Albumin/Globulin Ratio Lipase Procalcitonin Chlamy pneumoniae PCR Adenovirus (PCR) B.parapertussis DNA PCR Coronavirus OC43 (PCR) Coronavirus HKU1 (PCR) Coronavirus 229E (PCR) SARS-CoV-2 (PCR) Negative Coronavirus NL63 (PCR) Human Metapneumovir PCR Influenza Type A (PCR) Influenza Type B (PCR) M. pneumoniae (PCR) Parainfluenza 1 (PCR) Parainfluenza 2 (PCR) Parainfluenza 3 (PCR) Parainfluenza 4 (PCR) RSV (PCR) Entero/Rhino (PCR) 12/06/20 12/06/20 12/06/20 15:15 15:15 15:15 WBC RBC Hgb Hct MCV MCH MCHC RDW Plt Count Neut % (Auto) Lymph % (Auto) [place] % (Auto) Eos % (Auto) Baso % (Auto) Neut # (Auto) Lymph # (Auto) [place] # (Auto) Eos # (Auto) Baso # (Auto) PT INR APTT Sodium 134 L Potassium 3.7 Chloride 101 Carbon Dioxide 29 BUN 10 Creatinine 0.84 Estimated GFR > 60.0 BUN/Creatinine Ratio 11.9 Glucose 110 Lactate 1.0 Calcium 9.4 Total Bilirubin 0.2 AST 38 H ALT 50 H Alkaline Phosphatase 140 H Total Creatine Kinase 56 CK-MB (CK-2) TNP CK-MB (CK-2) Rel Index TNP Troponin I < 0.012 NT-Pro-B Natriuret Pep Total Protein 6.9 Albumin 4.0 Globulin 2.9 Albumin/Globulin Ratio 1.4 Lipase 40 Procalcitonin 0.04 Chlamy pneumoniae PCR Adenovirus (PCR) B.parapertussis DNA PCR Coronavirus OC43 (PCR) Coronavirus HKU1 (PCR) Coronavirus 229E (PCR) SARS-CoV-2 (PCR) Coronavirus NL63 (PCR) Human Metapneumovir PCR Influenza Type A (PCR) Influenza Type B (PCR) M. pneumoniae (PCR) Parainfluenza 1 (PCR) Parainfluenza 2 (PCR) Parainfluenza 3 (PCR) Parainfluenza 4 (PCR) RSV (PCR) Entero/Rhino (PCR) 12/06/20 12/06/20 15:15 17:35 WBC RBC Hgb Hct MCV MCH MCHC RDW Plt Count Neut % (Auto) Lymph % (Auto) [place] % (Auto) Eos % (Auto) Baso % (Auto) Neut # (Auto) Lymph # (Auto) [place] # (Auto) Eos # (Auto) Baso # (Auto) PT INR APTT Sodium Potassium Chloride Carbon Dioxide BUN Creatinine Estimated GFR BUN/Creatinine Ratio Glucose Lactate Calcium Total Bilirubin AST ALT Alkaline Phosphatase Total Creatine Kinase CK-MB (CK-2) CK-MB (CK-2) Rel Index Troponin I NT-Pro-B Natriuret Pep 62 Total Protein Albumin Globulin Albumin/Globulin Ratio Lipase Procalcitonin Chlamy pneumoniae PCR Not detected Adenovirus (PCR) Not detected B.parapertussis DNA PCR Not detected Coronavirus OC43 (PCR) Not detected Coronavirus HKU1 (PCR) Not detected Coronavirus 229E (PCR) Not detected SARS-CoV-2 (PCR) Not detected Coronavirus NL63 (PCR) Not detected Human Metapneumovir PCR Not detected Influenza Type A (PCR) Not detected Influenza Type B (PCR) Not detected M. pneumoniae (PCR) Not detected Parainfluenza 1 (PCR) Not detected Parainfluenza 2 (PCR) Not detected Parainfluenza 3 (PCR) Not detected Parainfluenza 4 (PCR) Not detected RSV (PCR) Not detected Entero/Rhino (PCR) Not detected Assessment & Plan Assessment & Plan narrative: Yennifer Boo is a 59 y.o. 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 She notified Dr. Mcleod of her admission and was advised her admission here is fine with him. Acute respiratory failure with hypoxia present on admission -Probable asthma exacerbation underlying -RT consult and maintain on nasal cannula to keep her oxygen saturation above 93% -Presenting O2 sat was 90% in a patient with a normal oxygen saturation of 96% -COVID-19 has been ruled out -Likely a side effect of the immunotherapy she received yesterday -Consider phone consultation with Dr. Mcleod if no improvement overnight. 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 Oral candidiasis secondary to steriod medication, acute, present on admission -She was to start oral itraconazole 200 mg and her will bring in the am. Mild hyponatremia, present on admission -Patient will be provided a non-sodium restricted general diet Hypothyroidism, chronic and stable -Continue home dose of levothyroxine 150 mcg po daily Chronic radiation induced esophagitis -Continuehome dose pantoprazole 20 mg po daily Depression, chronic -Continue fluoxetine 40 mg po daily VTE prophylaxis: Wells risk score: 4 Caprinia VTE score is high Enoxaparin 40 mg subQ daily Consults: none Patient is observation status as her stay is not likely to exceed 2 midnights. FEN: saline lock, general diet, BMP and magnesium in the am. Dispo: probable discharge to home Code Status: DNR/DNI as discussed with patient Scores Wells' Criteria for PE Clinical signs and symptoms of DVT: Yes PE is #1 Dx or equally likely: No Heart rate > 100: No Immobilization at least 3 days or surg in previous 4 weeks: No History of PE or DVT: No Hemoptysis: No Malignancy w/Treatment within 6 months or palliative: Yes Wells' PE Score total: 4 Quality VTE Deep Vein Thrombosis/Pulmonary Embolism Present on Admission: No
--- NOTE | 2020-12-06 21:33 | RT ---
Assessed pt for RT consult and eval at 2123. Pt is on 2 LPM NC, SpO2 95%. No respiratory distress noted, RR 17, BS clear t/o. Pt takes Flovent and Symbicort BID, and Albuterol MDI PRN. Will start pt on IS and order Duo-neb. Recommending to order pt's asthma maintenance MDIs per home regimen.
[2020-12-07 00:03] VITALS: BP 129/65; PULSE 75; RESP 16; TEMP 36.6; O2SAT 93
[2020-12-07] MEDS: LEVOTHYROXINE 150 MCG TABLET PO (05:37)
[2020-12-07] MEDS: SODIUM CHLORIDE 0.9% FLUSH 10 ML IV ×2 (05:53→08:47)
[2020-12-07 06:07] LABS: Add Manual Diff / Slide Review NO; Basophils Absolute Auto 0 /uL (0-100); Basophils Percent Auto 0.3 % (0-2); Eosinophils Absolute Auto 0 /uL (0-450); Eosinophils Percent Auto 0.1 % (2-4); Hematocrit 38.5 % (36-46); Hemoglobin 12.7 g/dL (12.0-16.0); Lymphocytes Absolute Auto 1200 /uL (1100-4500); Lymphocytes Percent Auto 19.1 % (25-40); Mean Corpuscular Volume 87.8 fL (80-100); Monocytes Absolute Auto 300 /uL (0-900); Monocytes Percent Auto 4.8 % (3-14); Neutrophils Absolute Auto 4600 /uL (1500-7000); Neutrophils Percent Auto 75.7 % (50-75); Platelet Count 428 X10^3/uL (150-400); Red Blood Cell Count 4.38 X10^6/uL (4.0-5.2); Red Cell Distribution Width 13.7 % (11.6-14.8); White Blood Cell Count 6.1 X10^3/uL (4.5-11.0)
[2020-12-07 06:13] LABS: BUN Creatinine Ratio 20.8 (6-22); Blood Urea Nitrogen 16 mg/dL (7-17); Calcium 9.9 mg/dL (8.4-10.2); Carbon Dioxide 29 mmol/L (22-32); Chloride 101 mmol/L (98-107); Estimated Glomerular Filt Rate > 60.0 mL/min (>60); Glucose 151 mg/dL (80-110); HEMOLYSIS < 15 (0-50); Magnesium 2.2 mg/dL (1.6-2.3); Potassium 4.5 mmol/L (3.4-5.1); Sodium 135 mmol/L (137-145)
[2020-12-07 08:00] VITALS: BP 122/66; PULSE 66; RESP 17; TEMP 36.6; O2SAT 95
[2020-12-07] MEDS: ENOXAPARIN 40 MG/0.4 ML SYRINGE SUBCUT (08:47)
[2020-12-07] MEDS: PANTOPRAZOLE 20 MG TABLET PO (08:47)
[2020-12-07] MEDS: FLUoxetine 20 MG CAPSULE PO ×2 (08:48→12:44)
[2020-12-07] MEDS: predniSONE 5 MG TABLET 10 MG PO (08:48)
[2020-12-07] MEDS: LETROZOLE 2.5 MG TABLET PO (08:51)
[2020-12-07 09:20] VITALS: O2SAT 93
[2020-12-07 10:02] VITALS: PULSE 77; RESP 20; O2SAT 92
[2020-12-07] MEDS: ALBUTEROL/IPRATROPIUM 3 ML AMPUL INH ×2 (10:02→19:53)
--- NOTE | 2020-12-07 10:58 | CM.DANOTE ---
DCP: Case received, EMR reviewed and met with patient. Introduced self and role. Was able to obtain information from patient regarding her baseline activity status at home prior to hospitalization. DCP assessment completed with information currently available. Patient is a 59 year old female who admitted yesterday afternoon to the care of the hospitalist team. PCP: Dr. Ma, at [facility]. Payer: confirmed: [facility]. Patient came to the hospital via private vehicle for increased shortness of breath. Patient's oxygen saturations had beeen in the 80s. She was diagnosed with acute respiratory failure with hypoxia, as well as asthma exacerbation. Patient has Metastatic Lung CA, with history of Breast Cancer. She has a port a cath, and is going to [facility] for treatments. She is currently not on home oxygen. Met with patient. She was sitting up in bed, alert and oriented. 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 She is pleasant, resides in [place] with her spouse, Carter. She is independent at baseline with her activities. P: DCP to continue to follow. Patient could potentially need home oxygen, will see how she does on room air with mobility. Patient should be able to go home when she is medically stable. Laura Rouse RN/Plaster Foreman
--- NOTE | 2020-12-07 11:44 | P.PN_ITS ---
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 She was found to be hypoxic in the em ergency department with O2 saturation of 90% on room air. This morning the patient's O2 sat dropped to 89% on room air. She is now on 2 L of oxygen. Patient received IV Solu-Medrol. She is on albuterol Atrovent. She is also now on prednisone 10 mg a day. Patient continues to complain of shortness of breath. She does not feel back to baseline. She is placed back on [address] scanning in the emergency department was negative for PE but showed progression of her pulmonary disease. Exam Vital Signs (past 8 hours): - 12/07/20 08:00 12/07/20 09:20 12/07/20 10:02 Temperature 97.9 F Pulse Rate 66 77 Respiratory Rate 17 20 Blood Pressure 122/66 Pulse Oximetry 95 93 92 Oxygen Delivery Method Room Air Oxygen Flow Rate 0 Narrative Exam Narrative: Pleasant female resting comfortably in no obvious distress Lungs: Decreased breath sounds but clear to auscultation Cardiac exam: Regular rate and rhythm normal S1-S2 Abdomen: Soft nontender nondistended Extremities: No edema Objective Labs Result Diagrams: 12/07/20 05:59 12/07/20 05:59 Labs: Laboratory Results - last 24 hr 12/06/20 12/06/20 12/06/20 14:51 15:15 15:15 WBC 7.5 RBC 4.50 Hgb 12.9 Hct 39.3 MCV 87.2 MCH 28.6 MCHC 32.8 RDW 13.5 Plt Count 397 Neut % (Auto) 68.5 Lymph % (Auto) 19.1 L [place] % (Auto) 9.1 Eos % (Auto) 2.8 Baso % (Auto) 0.5 Neut # (Auto) 5100 Lymph # (Auto) 1400 [place] # (Auto) 700 Eos # (Auto) 200 Baso # (Auto) 0 PT 13.1 H INR 1.1 APTT 140 H* Sodium Potassium Chloride Carbon Dioxide BUN Creatinine Estimated GFR BUN/Creatinine Ratio Glucose Lactate Calcium Magnesium Total Bilirubin AST ALT Alkaline Phosphatase Total Creatine Kinase CK-MB (CK-2) CK-MB (CK-2) Rel Index Troponin I NT-Pro-B Natriuret Pep Total Protein Albumin Globulin Albumin/Globulin Ratio Lipase Procalcitonin Chlamy pneumoniae PCR Adenovirus (PCR) B.parapertussis DNA PCR Coronavirus OC43 (PCR) Coronavirus HKU1 (PCR) Coronavirus 229E (PCR) SARS-CoV-2 (PCR) Negative Coronavirus NL63 (PCR) Human Metapneumovir PCR Influenza Type A (PCR) Influenza Type B (PCR) M. pneumoniae (PCR) Parainfluenza 1 (PCR) Parainfluenza 2 (PCR) Parainfluenza 3 (PCR) Parainfluenza 4 (PCR) RSV (PCR) Entero/Rhino (PCR) 12/06/20 12/06/20 12/06/20 15:15 15:15 15:15 WBC RBC Hgb Hct MCV MCH MCHC RDW Plt Count Neut % (Auto) Lymph % (Auto) [place] % (Auto) Eos % (Auto) Baso % (Auto) Neut # (Auto) Lymph # (Auto) [place] # (Auto) Eos # (Auto) Baso # (Auto) PT INR APTT Sodium 134 L Potassium 3.7 Chloride 101 Carbon Dioxide 29 BUN 10 Creatinine 0.84 Estimated GFR > 60.0 BUN/Creatinine Ratio 11.9 Glucose 110 Lactate 1.0 Calcium 9.4 Magnesium Total Bilirubin 0.2 AST 38 H ALT 50 H Alkaline Phosphatase 140 H Total Creatine Kinase 56 CK-MB (CK-2) TNP CK-MB (CK-2) Rel Index TNP Troponin I < 0.012 NT-Pro-B Natriuret Pep Total Protein 6.9 Albumin 4.0 Globulin 2.9 Albumin/Globulin Ratio 1.4 Lipase 40 Procalcitonin 0.04 Chlamy pneumoniae PCR Adenovirus (PCR) B.parapertussis DNA PCR Coronavirus OC43 (PCR) Coronavirus HKU1 (PCR) Coronavirus 229E (PCR) SARS-CoV-2 (PCR) Coronavirus NL63 (PCR) Human Metapneumovir PCR Influenza Type A (PCR) Influenza Type B (PCR) M. pneumoniae (PCR) Parainfluenza 1 (PCR) Parainfluenza 2 (PCR) Parainfluenza 3 (PCR) Parainfluenza 4 (PCR) RSV (PCR) Entero/Rhino (PCR) 12/06/20 12/06/20 12/07/20 15:15 17:35 05:59 WBC 6.1 RBC 4.38 Hgb 12.7 Hct 38.5 MCV 87.8 MCH 29.0 MCHC 33.0 RDW 13.7 Plt Count 428 H Neut % (Auto) 75.7 H Lymph % (Auto) 19.1 L [place] % (Auto) 4.8 Eos % (Auto) 0.1 L Baso % (Auto) 0.3 Neut # (Auto) 4600 Lymph # (Auto) 1200 [place] # (Auto) 300 Eos # (Auto) 0 Baso # (Auto) 0 PT INR APTT Sodium Potassium Chloride Carbon Dioxide BUN Creatinine Estimated GFR BUN/Creatinine Ratio Glucose Lactate Calcium Magnesium Total Bilirubin AST ALT Alkaline Phosphatase Total Creatine Kinase CK-MB (CK-2) CK-MB (CK-2) Rel Index Troponin I NT-Pro-B Natriuret Pep 62 Total Protein Albumin Globulin Albumin/Globulin Ratio Lipase Procalcitonin Chlamy pneumoniae PCR Not detected Adenovirus (PCR) Not detected B.parapertussis DNA PCR Not detected Coronavirus OC43 (PCR) Not detected Coronavirus HKU1 (PCR) Not detected Coronavirus 229E (PCR) Not detected SARS-CoV-2 (PCR) Not detected Coronavirus NL63 (PCR) Not detected Human Metapneumovir PCR Not detected Influenza Type A (PCR) Not detected Influenza Type B (PCR) Not detected M. pneumoniae (PCR) Not detected Parainfluenza 1 (PCR) Not detected Parainfluenza 2 (PCR) Not detected Parainfluenza 3 (PCR) Not detected Parainfluenza 4 (PCR) Not detected RSV (PCR) Not detected Entero/Rhino (PCR) Not detected 12/07/20 05:59 WBC RBC Hgb Hct MCV MCH MCHC RDW Plt Count Neut % (Auto) Lymph % (Auto) [place] % (Auto) Eos % (Auto) Baso % (Auto) Neut # (Auto) Lymph # (Auto) [place] # (Auto) Eos # (Auto) Baso # (Auto) PT INR APTT Sodium 135 L Potassium 4.5 Chloride 101 Carbon Dioxide 29 BUN 16 Creatinine 0.77 Estimated GFR > 60.0 BUN/Creatinine Ratio 20.8 Glucose 151 H Lactate Calcium 9.9 Magnesium 2.2 Total Bilirubin AST ALT Alkaline Phosphatase Total Creatine Kinase CK-MB (CK-2) CK-MB (CK-2) Rel Index Troponin I NT-Pro-B Natriuret Pep Total Protein Albumin Globulin Albumin/Globulin Ratio Lipase Procalcitonin Chlamy pneumoniae PCR Adenovirus (PCR) B.parapertussis DNA PCR Coronavirus OC43 (PCR) Coronavirus HKU1 (PCR) Coronavirus 229E (PCR) SARS-CoV-2 (PCR) Coronavirus NL63 (PCR) Human Metapneumovir PCR Influenza Type A (PCR) Influenza Type B (PCR) M. pneumoniae (PCR) Parainfluenza 1 (PCR) Parainfluenza 2 (PCR) Parainfluenza 3 (PCR) Parainfluenza 4 (PCR) RSV (PCR) Entero/Rhino (PCR) [facility] Medical History (Updated 12/06/20 @ 20:25 by JENN Mckay) Acute idiopathic pericarditis Anxiety Asthma Carcinoma of left lung Cough Epistaxis Gastritis History of malignant neoplasm of both breasts Hyperglycemia Hyperlipidemia Hyperthyroidism Injury of nasal sinus Insomnia Invasive ductal carcinoma of left breast in female Migraine Port-A-Cath in place Radiation-induced esophagitis Vertigo Surgical History H/O bilateral mastectomy History of right knee joint replacement Hx of cholecystectomy Hx of lymph node excision Family History Mother Early onset Alzheimer's dementia Brother Early onset Alzheimer's dementia Father Myocardial infarct CVA (cerebral vascular accident) Brother Asthma Sister Nasopharyngeal cancer Social History household members: spouse Smoking Status: Never smoker Assessment & Plan Assessment & Plan narrative: Impression 1. 59-year-old female with a history of T4 N2 M1 poorly differentiated squamous cell carcinoma admitted to the hospital for acute respiratory failure -this is felt to be secondary to her recent chemo treatment -patient is on 2 L of oxygen -increased prednisone to 40 mg per day -patient is status post cycle 11 of pembrolizumab from [facility] -will continue to monitor, patient may require discharge home on oxygen -CT of the chest shows progression of her squamous cell carcinoma which may be contributing to her shortness of breath as well. There was no evidence of pulmonary embolus on exam. 2. Patient also has T1 N0 moderately differentiated left breast cancer -continue letrozole 2.5 mg daily 3. Oral candidiasis -previously sleepy resistant to fluconazole -continue itraconazole as prescribed -patient will bring in home medication which we will administer 4. Hyponatremia -will continue to monitor 5. Hypothyroidism -continue L-thyroxine 6. Chronic radiation induced esophagitis -continue pantoprazole 7. Depression -continue fluoxetine Disposition discharge home either on room air if the patient improves with ster oids, or with oxygen if unable to improve hypoxia Quality VTE Deep Vein Thrombosis/Pulmonary Embolism Present on Admission: No
[2020-12-07] MEDS: ITRACONAZOLE 10 MG/ML 20 EACH PO (12:44)
[2020-12-07 15:47] VITALS: BP 141/76; PULSE 72; RESP 18; TEMP 36.7; O2SAT 94
--- NOTE | 2020-12-07 17:41 | PC.NURSE ---
Addendum entered by Kayley Schaefer R.N. 12/07/20 20:23: Pt trying own room air trial=88%. Pt replaced oxygen @ 2L/min per NC. Inquired of pt how often pt flushes portacath which is now locked. Pt reports every three weeks and it was flushed today. Site is inspected and benign. Addendum entered by Kayley Schaefer R.N. 12/07/20 18:54: In bed talking on telephone with spouse present in room. 02 2L nc sats 93%. Original Note: Pt up in chair reading book @ beginning of shift. Denies pain, denies nausea. Occasional cough without productive sputum. 02 2L per nc saturation level per continuous monitor 94%. Able to move all extremities independently. Encouraged to call for needs/wants.
[2020-12-07 19:53] VITALS: PULSE 89; RESP 18; O2SAT 93
[2020-12-08] VITALS: PULSE 59; RESP 16; TEMP 36.4; O2SAT 94
[2020-12-08] MEDS: LEVOTHYROXINE 150 MCG TABLET PO (05:45)
[2020-12-08 08:04] VITALS: BP 133/72; PULSE 59; RESP 16; TEMP 35.9; O2SAT 96
[2020-12-08] MEDS: predniSONE 20 MG TABLET 40 MG PO (09:35)
[2020-12-08] MEDS: FLUoxetine 20 MG CAPSULE 40 MG PO (09:35)
[2020-12-08] MEDS: PANTOPRAZOLE 20 MG TABLET PO (09:35)
[2020-12-08] MEDS: ENOXAPARIN 40 MG/0.4 ML SYRINGE SUBCUT (09:35)
[2020-12-08] MEDS: LETROZOLE 2.5 MG TABLET PO (09:36)
[2020-12-08] MEDS: ITRACONAZOLE 10 MG/ML 20 EACH PO (09:36)
[2020-12-08] MEDS: ALBUTEROL/IPRATROPIUM 3 ML AMPUL INH (10:04)
[2020-12-08 10:06] VITALS: PULSE 90; RESP 18; O2SAT 93
--- NOTE | 2020-12-08 10:08 | RT ---
RT Exercise oximetry note: O2 sats at rest, room air: 95%. O2 sats ambulating, room air: 93% (pt has been ambulating the hallways). Report to Dr Rosario.
--- NOTE | 2020-12-08 10:29 | P.DS_ITS ---
History of Present Illness History of Present Illness Date Patient Seen: 12/08/20 Chief complaint: shortness breath/ asthma/ thrush/ cancer patient Narrative: Yennifer Boo is a pleasant 59 y.o. 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 Stated her normal oxygen saturation is 96% and after the treatment, her oxygen went down to 88. She used her albuteral inhaler, then did a nebulizer with no effect. She had been previously treated for a pneumonia on 11/14 with a z-pack course and oral prednisone 2 mg which she completed. Her oncologist is Dr. Mcleod at [facility] and has a telex operator Dr. Thomas at [facility] in [place]. She initially had chills after receiving the pembrolizumab and has had a mildly productive cough with green sputum which has improved since completing the z- pack. 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 Denies dysrea, abdominal pain, diarrhea or constipation. She has had oral thrush which was resistant to fluconazole and was prescribed oral itraconazole 200 mg once daily yesterday. She was seen yesterday at her oncologist's office for cycle 11 of pembrolizumab treatment. Review of his note indicated she should increase the prednisone she was taking from 2 mg to 10 mg daily for increased shortness of breath and to hold immunotherapy. CT angio today ruled out PE but indicated worsening metastatic lesions compared to the 07/10/[address] done at [facility]. She was administered an albuterol nebulizer, 2 doses of IV methylprednisolone 125 mg and one dose of IV benadryl 50 mg in the ED. and On presentation to the ED, her oxygen saturation was 90% on room air and is presently 94% on 2 liters. She is afebrile with a blood pressure of 146/79, heart rate 84, respiratory rate 20, oxygen saturation of 94% on 2 L, she weighs 91.6 kg with a BMI of 33.6. WBC largely within normal limits, she is mildly hyponatremic at 134, rest of her chemistries are within normal limits, she does have mildly elevated liver enzymes with an AST of 38, ALT 50, alk-phos 140, procalcitonin is negative, viral serology is negative as well as COVID-19 PCR. Discharge Providers Provider Date of admission: 12/06/20 17:49 Discharge Date: 12/08/20 Consults: 12/06/20 20:11 Consult to Pharmacy Routine Comment: to bring in po letrazole and miconozole am 12/06/20 20:54 Consult to Respiratory Therapy Evaluate & Treat Comment: hypoxia s/s to immunotherapy, assess for home O2 Physician Instructions: Evaluate and treat Discharge provider: Marleni Rosario MD Summary Hospital Course Discharge Diagnosis: 1. Acute hypoxic respiratory failure, likely multifactorial 2. Poorly differentiated squamous cell carcinoma of the lung 3. Status post Pembrolizumab immunotherapy 4. Asthma 5. Hyperlipidemia 6. Hyperthyroid 7. Invasive ductal carcinoma the left breast Hospital Course: Patient was admitted to the hospital for abrupt onset acute hypoxic respiratory failure. She reports her oxygen level 85% with ambulation. As the patient became progressively short of breath she was evaluated in the emergency room for this. She had been seen by her oncologist for her 11 cycle of pembrolizumab the patient's prednisone was switched from 2 mg to 10 mg daily for shortness of breath. She underwent a CT angio in the emergency department which showed no PE but worsening metastatic lesions. Patient was admitted to the hospital for evaluation. Patient was placed on initially IV steroids, ultimately oral prednisone. Her breathing improved. Her oxygenation improved. At rest her O2 sat on room air was 89-90%. With activity this improved to 93%. As the patient clinically was symptomatic Tammy improved she was deemed approp riate for discharge home. Patient will follow-up with her oncologist Dr. Mcleod in 1-2 weeks. She has plans for follow-up appointment with her telex operator in [place] as well. Status at Discharge Cognitive/behavioral status at discharge: oriented Functional status at discharge: independent ambulation Overall status at discharge: patient is back to baseline Time Spent with Patient Time spent: Less than 30 minutes Exam Vital Signs (past 8 hours): - 12/08/20 08:04 12/08/20 10:06 Temperature 96.6 F L Pulse Rate 59 L 90 Respiratory Rate 16 18 Blood Pressure 133/72 Pulse Oximetry 96 93 Oxygen Delivery Method Room Air Oxygen Flow Rate 1.5 Narrative Exam Narrative: Pleasant female resting comfortably in no obvious distress Lungs: Decreased breath sounds but clear to auscultation Cardiac exam: Regular rate and rhythm normal S1-S2 Abdomen: Soft nontender nondistended Extremities: No edema Objective Labs Result Diagrams: 12/07/20 05:59 12/07/20 05:59 PFS Medical History (Updated 12/06/20 @ 20:25 by JENN Mckay) Acute idiopathic pericarditis Anxiety Asthma Carcinoma of left lung Cough Epistaxis Gastritis History of malignant neoplasm of both breasts Hyperglycemia Hyperlipidemia Hyperthyroidism Injury of nasal sinus Insomnia Invasive ductal carcinoma of left breast in female Migraine Port-A-Cath in place Radiation-induced esophagitis Vertigo Surgical History H/O bilateral mastectomy History of right knee joint replacement Hx of cholecystectomy Hx of lymph node excision Family History Mother Early onset Alzheimer's dementia Brother Early onset Alzheimer's dementia Father Myocardial infarct CVA (cerebral vascular accident) Brother Asthma Sister Nasopharyngeal cancer Social History household members: spouse Smoking Status: Never smoker Discharge Assessment & Plan Assessment and Plan Assessment: 1. Acute hypoxic respiratory failure 2. Metastatic squamous cell carcinoma of the lung 3. Ductal carcinoma of the breast 4. Asthma Plan of Treatment: Discharge home on medications as prescribed Follow-up with Dr. Mcleod as discussed above Discharge Plan Discharge Plan Patient Disposition: Home Discharge orders & Medications Prescriptions: New prednisone 20 mg Tablet 40 mg PO DAILY Qty: 5 RF: 0 Continued budesonide-formoterol 2 puff INHALATION BID RF: 0 meclizine 25 mg tablet 25 mg PO PRN PRN (Reason: Vertigo) RF: 0 letrozole 2.5 mg tablet 2.5 mg PO DAILY RF: 0 ALBUTEROL SULFATE (Ventolin / Proventil) 1 - 2 puff INH PRN PRN (Reason: Shortness Of Breath) Qty: 0 RF: 0 multivitamin [Multiple Vitamins] 1 EACH tablet 1 tab PO QDAY Qty: 0 RF: 0 fluoxetine [Prozac] 40 MG capsule 40 mg PO QDAY Qty: 0 RF: 0 VITAMIN D (Vitamin D3) 10,000 unit PO QDAY Qty: 0 RF: 0 pantoprazole [Protonix] 20 mg Tablet,Delayed Release (Dr/Ec) 20 mg PO DAILY RF: 0 Zyrtec 10 mg Capsule 10 mg PO DAILY RF: 0 levothyroxine [Synthroid] 150 mcg Tablet 150 mcg PO DAILY RF: 0 itraconazole 10 mg/mL Solution 200 mg PO DAILY RF: 0 Discharge Health Status Multidrug resistant organism: No MDRO Diet/Activity/Treatments Diet: Diet as Tolerated Skin/Wound/Dressing Care Report to your healthcare provider any signs of infection, such as:: chills, fever and night sweats Quality VTE Deep Vein Thrombosis/Pulmonary Embolism Present on Admission: No
--- NOTE | 2020-12-08 10:51 | CM.DPC ---
DCP: continued: Case received and discussed in Team Rounds. Dr. Rosario noted that pt would be checked today for ? need home supplemental oxygen by RT and then would be ok'd for d/c with continued oncology followup. Pt now given d/c orders and no home o2 is needed.
--- NOTE | 2020-12-08 12:43 | PC.NURSE ---
Addendum entered by Jalyn Blake R.N. 12/08/20 13:35: Unable to print Patients discharge packet, printed under AZIZA Dias, as all other RNs were busy. Original Note: Patients o2 saturation on RA 93% and her lung sounds are clear. She will be discharging home soon.
== END 2020-12-08 13:33 | disposition home or self-care (01) | DRG 189 ==
LOC: ED 14:51 → AC 18:11
PROVIDERS: Nurse Practitioner Family; Admitting Provider Internal Medicine; Emergency Provider Emergency Medicine; Referring Provider Emergency Medicine; Visit Provider Internal Medicine
DX: J96.01 Acute respiratory failure with hypoxia (principal); C34.92 Malignant neoplasm of unspecified part of left bronchus or lung; B37.0 Candidal stomatitis; E87.1 Hypo-osmolality and hyponatremia; C50.912 Malignant neoplasm of unspecified site of left female breast; K20.80 Other esophagitis without bleeding; J45.909 Unspecified asthma, uncomplicated; E03.9 Hypothyroidism, unspecified; T66.XXXS Radiation sickness, unspecified, sequela; F32.9 Major depressive disorder, single episode, unspecified; Z66 Do not resuscitate; Z20.822 Contact with and (suspected) exposure to COVID-19; E05.90 Thyrotoxicosis, unspecified without thyrotoxic crisis or storm
CPT/HCPCS: 36415; 36591; 71045; 71275; 80048; 80053; 81003; 82550; 83605; 83690; 83735; 83880; 84145; 84484; 85025; 85610; 85730; 87633; 87635; 93005; 93010; 94150; 94640; 94760; 94762; 96374; 96375; 99284; 99285; C9803; J1200; J1642; J1650; J2270; J2930; J7613; Q9967

== ENCOUNTER 2022-08-15 08:30 | Outpatient (RCR) | payer OTHER, SELFPAY ==
[2020-12-06 18:29] VITALS: BMI 33.6
--- NOTE | 2022-07-25 15:46 | ST.OPIE ---
Visit Care Team Role Provider Type Lázaro Mccall DO Primary Care Provider Non-Staff Specialty: Family Practice Address: [address] [place] [address], [address] Email: Fazal Veras MD Attending Provider Physician Referring Provider Specialty: Ear, Nose, Throat Address: [address] [place] [address], [address] Email: [email or web address] Speech-Language Pathology Initial Evaluation CUSTOMER CARE PROFESSIONAL Voice Resonance Evaluation Start: 07/25/22 13:37 Freq: Status: Active Protocol: Document 07/25/22 13:37 LNK (Rec: 07/25/22 14:33 LNK [id number]) Voice and Resonance Assessment Session Time Visit Start Time 08:30 Visit Stop Time 09:30 Total Visit Minutes 60 Visit Information Visit Number 1 Plan of Care Dates 07/25/22-10/19/22 Next Note Type Next Note Type Treatment Note Referral Referring Physician Dr. Fazal Veras Reason for Referral laryngospasm/vocal dysfunction Setting Setting Outpatient Care Patient History Patient History Pt was seen for a voice/ laryngospasm assessment at the referral of Dr. Veras, ENT. According to the pt, she has a complicated medical history that includes bilateral mastectomy for breast cancer, lung cancer, asthma, right side lymph glands removal, GERD, a hiatal hernia and 30+ radiation treatments to the upper left chest near her sternum. Relative to the laryngospasm, the pt reports that they typically occur when she drinks a liquid or swallows her saliva and if she eats a food that is crumbly, like a cookie or cracker. The last time this occurred was about a month ago, pt reported . When this happens, she can cough hard for an extended time. Her will calm her with deep breathing. Pt's voice is perceptually harsh with pitch breaks. Dr. Veras performed an endoscopic examination and reported that the left vocal fold was erythmatic with an uneven edge , possibly related to pt's most recent coughing attack/ laryngospasm. 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 Oral-Motor Eval Completed Informal observation indicated structures and function to be WNL Subjective Subjective Pt presented with a harsh and loud voice. 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 - Laryngeal Performance Voice Handicap Index Function Subtotal 8 Physical Subtotal 20 Emotional Subtotal 3 Severity Moderate (31-60) CAPE-V Overall Severity 70 Roughness 66 Breathiness 30 Strain 65 Pitch 0 Loudness 60 Normal Resonance? Yes Additional Features Glottal Jones,Pitch Instability Other Features Observed Harsh vocal quality Muscle Tension Assessment Muscle Tension Assessment Neck,Shoulders Tongue Base Tension Tongue Base Tension w/ Voicing Yes Tongue Base Tension at Rest No Breath Support Breath Support At Rest Abdominal Breath Support Conversation Mixed Speaks on Room Air Yes Postural Alignment Stance Balanced Neck Jaw Jut Shoulders Both High Comments Upper body tension noted as pt spoke Voice Pitch Range Norms: Women (100-300 Hz) Men (70-250 Hz) Fundamental Frequency Norms: Women (Mean: 225 Hz; Range: 155-334 Hz) Men ( Mean: 128 Hz; Range: 85-196 Hz) Voice Pitch Normal Voice Loudness Moderately Loud Voice Phonatory-based Quality Strident,Harsh Findings Findings Moderate Impairment Voice/Resonance Assessment Assessment Pt presented with a moderate harsh vocal quality with reported layrngospasm. Pt's medical history includes breast cancer, lung cancer, asthma, right side lymph glands removal, GERD, a hiatal hernia and 30+ radiation treatments to the upper left chest near her sternum. Any one, or a combination of these diagnoses/treatments may be contributory to the pts reported symptoms. There appears to be a possible dysphagia component as pt reports laryngospasm following eating and/or drinking. Additionally, as the pt had extensive ratiation to the upper chest area, there may be resulting tissue stiffness re : the laryngopharyngeal cartilages and muscles. Stiffness would result in reduced muscle or epiglottic flexibility/mobility resulting in diminished airway protection. Complicating these factors is well as frequent use of steroids for her asthma, the pt has used cortcoid inhalers, which over time can result in a breathy vocal quality. LPR may also be related to the pt's vocal harshness. Pt has a PMH of GERD requiring 2 medications to manage. LPR/GERD may be irritating the vocal folds, resulting in poor vocal quality. Referrals for 1) MBSS to assess swallow and 2) Stroboscopy ([facility]) to further assess the vocal folds. Finally, recommendation for vocal therapy is recommended targeting strategies for laryngospams and to reduce vocal fold tension Prognosis Rehabilitation Potential Good - Recommendations Treatment Recommended Yes Treatment Frequency/Duration weekly Therapy Recommendations Therapeutic strategies and therapy emphasis will be more specified following MBSS and Stroboscopy CUSTOMER CARE PROFESSIONAL Follow Up yes Referrals Referrals ENT Voice/Resonance Other Referral MBSS Patient/Caregiver Education Patient/Family Education Described results of evaluation,Patient Understanding
--- NOTE | 2022-07-25 15:56 | ST.OPIE ---
Visit Care Team Role Provider Type Lázaro Mccall DO Primary Care Provider Non-Staff Specialty: Family Practice Address: [address] [place] [address], [address] Email: aFzal Veras MD Attending Provider Physician Referring Provider Specialty: Ear, Nose, Throat Address: [address] [place] [address], [address] Email: [email or web address] Speech-Language Pathology Initial Evaluation TRUCKMAN Voice Resonance Evaluation Start: 07/25/22 13:37 Freq: Status: Active Protocol: Document 07/25/22 13:37 LNK (Rec: 07/25/22 14:33 LNK [id number]) Voice and Resonance Assessment Session Time Visit Start Time 08:30 Visit Stop Time 09:30 Total Visit Minutes 60 Visit Information Visit Number 1 Plan of Care Dates 07/25/22-10/19/22 Next Note Type Next Note Type Treatment Note Referral Referring Physician Dr. Fazal Veras Reason for Referral laryngospasm/vocal dysfunction Setting Setting Outpatient Care Patient History Patient History Pt was seen for a voice/ laryngospasm assessment at the referral of Dr. Veras, ENT. According to the pt, she has a complicated medicat history that includes bilateral mastectomy for breast cancer, lung cancer, asthma, right side lymph glands removal, GERD, a hiatal hernia and 30+ radiation treatments to the upper left chest near her sternum. Relative to the laryngospasm, the pt reports that they typically occur when she drinks a liquid or swallows her saliva and if she eats a food that is crumbly, like a cookie or cracker. The last time this ocurred was about a month ago, pt reported . When this happens, she can cough hard for an extended time. Her will calm her with deep breathing. Pt's voice is perceptually harsh with pitch breaks. Dr. Veras performed an endoscopic examination and reported that the left vocal fold was erythmatic with an uneven edge , possibly related to pt's most recent coughing attack/ laryngospasm. 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 Oral-Motor Eval Completed Informal observation indicated structures and function to be WNL Subjective Subjective Pt presented with a harsh and loud voice. 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 - Laryngeal Performance Voice Handicap Index Function Subtotal 8 Physical Subtotal 20 Emotional Subtotal 3 Severity Moderate (31-60) CAPE-V Overall Severity 70 Roughness 66 Breathiness 30 Strain 65 Pitch 0 Loudness 60 Normal Resonance? Yes Additional Features Glottal Jones,Pitch Instability Other Features Observed Harsh vocal quality Muscle Tension Assessment Muscle Tension Assessment Neck,Shoulders Tongue Base Tension Tongue Base Tension w/ Voicing Yes Tongue Base Tension at Rest No Breath Support Breath Support At Rest Abdominal Breath Support Conversation Mixed Speaks on Room Air Yes Postural Alignment Stance Balanced Neck Jaw Jut Shoulders Both High Comments Upper body tension noted as pt spoke Voice Pitch Range Norms: Women (100-300 Hz) Men (70-250 Hz) Fundamental Frequency Norms: Women (Mean: 225 Hz; Range: 155-334 Hz) Men ( Mean: 128 Hz; Range: 85-196 Hz) Voice Pitch Normal Voice Loudness Moderately Loud Voice Phonatory-based Quality Strident,Harsh Findings Findings Moderate Impairment Voice/Resonance Assessment Assessment EVALUATION RESULTS/ RECOMMENDATIONS: Pt presented with a moderate harsh vocal quality with reported layrngospasm. Pt's medical history includes breast cancer , lung cancer, asthma, right side lymph glands removal, GERD, a hiatal hernia and 30+ radiation treatments to the upper left chest near her sternum. Any one, or a combination of these diagnoses /treatments may be contributory to the pts reported symptoms. There appears to be a possible dysphagia component as pt reports laryngospasm following eating and/or drinking. Additionally, as the pt had extensive ratiation to the upper chest area, there may be resulting tissue stiffness re : the laryngopharyngeal cartilages and muscles. Stiffness would result in reduced muscle or epiglottic flexibility/mobility resulting in diminished airway protection. Complicating these factors is well as frequent use of steroids for her asthma, the pt has used corticoid inhalers, which over time can result in a breathy vocal quality. LPR may also be related to the pt's vocal harshness. Pt has a PMH of GERD requiring 2 medications to manage. LPR/GERD may be irritating the vocal folds, resulting in poor vocal quality. Referrals for 1) MBSS to assess swallow and 2) Stroboscopy ([facility]) to further assess the vocal folds. Finally, recommendation for vocal therapy is recommended targeting strategies for laryngospams and to reduce vocal fold tension. Prognosis Rehabilitation Potential Good - Recommendations Treatment Recommended Yes Treatment Frequency/Duration weekly Therapy Recommendations Therapeutic strategies and therapy emphasis will be more specified following MBSS and Stroboscopy TR[facility]MAN Follow Up yes Referrals Referrals ENT Voice/Resonance Other Referral MBSS Patient/Caregiver Education Patient/Family Education Described results of evaluation,Patient Understanding
--- NOTE | 2022-07-25 15:57 | ST.OPPOC ---
Physical, Occupational & Speech Therapy At [facility] Visit Care Team Role Provider Type Lázaro Mccall DO Primary Care Provider Non-Staff Address: [address] [place] [address], [id number] Fazal Veras MD Attending Provider Physician Referring Provider Address: [address] [place] [address], [address] Speech Pathology Plan of Care Plan of Care Dates 07/25/22-10/19/[address] Fazal Veras Patient History Pt was seen for a voice/laryngospasm assessment at the referral of Dr. Veras, ENT. According to the pt, she has a complicated medicat history that includes bilateral mastectomy for breast cancer, lung cancer, asthma, right side lymph glands removal, GERD, a hiatal hernia and 30+ radiation treatments to the upper left chest near her sternum. Relative to the laryngospasm, the pt reports that they typically occur when she drinks a liquid or swallows her saliva and if she eats a food that is crumbly, like a cookie or cracker. The last time this ocurred was about a month ago, pt reported. When this happens, she can cough hard for an extended time . Her will calm her with deep breathing. Pt's voice is perceptually harsh with pitch breaks. Dr. Veras performed an endoscopic examination and reported that the left vocal fold was erythmatic with an uneven edge, possibly related to pt's most recent coughing attack/laryngospasm. Comment: EVALUATION RESULTS/RECOMMENDATIONS: Pt presented with a moderate harsh vocal quality with reported layrngospasm. Pt's medical history includes breast cancer, lung cancer, asthma, right side lymph glands removal, GERD, a hiatal hernia and 30+ radiation treatments to the upper left chest near her sternum. Any one, or a combination of these diagnoses/treatments may be contributory to the pts reported symptoms. There appears to be a possible dysphagia component as pt reports laryngospasm following eating and/or drinking. Additionally, as the pt had extensive ratiation to the upper chest area, there may be resulting tissue stiffness re: the laryngopharyngeal cartilages and muscles. Stiffness would result in reduced muscle or epiglottic flexibility/mobility resulting in diminished airway protection. Complicating these factors is well as frequent use of steroids for her asthma, the pt has used corticoid inhalers, which over time can result in a breathy vocal quality. LPR may also be related to the pt's vocal harshness. Pt has a PMH of GERD requiring 2 medications to manage. LPR/GERD may be irritating the vocal folds, resulting in poor vocal quality. Referrals for 1) MBSS to assess swallow and 2) Stroboscopy ([facility]) to further assess the vocal folds. Finally, recommendation for vocal therapy is recommended targeting strategies for laryngospams and to reduce vocal fold tension. Electronically Signed by: WILLY Dixon 07/25/22 1646 If you are in agreement with this Plan of Care, please return a signed and dated copy. I have reviewed this Plan of Care and certify that the skilled therapy services above are required to meet the patient?s needs. Physician Signature Date Printed Name and Credentials Clinical Instructor Signature Printed Name and Credentials
--- NOTE | 2022-08-01 11:35 | ST.OPTN ---
Visit Care Team Role Provider Type Lázaro Mccall DO Primary Care Provider Non-Staff Address: [address] [place] [address], [id number] Fazal Veras MD Attending Provider Physician Referring Provider Address: [address] [place] [address], [id number] TUBE MAKER Treatment Note TUBE MAKER Treatment Note Start: 07/25/22 13:37 Freq: Status: Active Protocol: Document 08/01/22 09:34 LNK (Rec: 08/01/22 09:37 LNK [id number]) Speech Pathology Treatment Note Session Time Visit Start Time 08:30 Visit Stop Time 09:20 Total Visit Minutes 50 Visit Information Visit Number 2 Plan of Care Dates 07/25/22-10/19/22 Visit Type Note Type Treatment Note Next Note Type Next Note Type Treatment Note General Information Patient History Pt was seen for a voice/ laryngospasm assessment at the referral of Dr. Veras, ENT. According to the pt, she has a complicated medical history that includes bilateral mastectomy for breast cancer, lung cancer, asthma, right side lymph glands removal, GERD, a hiatal hernia and 30+ radiation treatments to the upper left chest near her sternum. Relative to the laryngospasm, the pt reports that they typically occur when she drinks a liquid or swallows her saliva and if she eats a food that is crumbly, like a cookie or cracker. The last time this occurred was about a month ago, pt reported . When this happens, she can cough hard for an extended time. Her will calm her with deep breathing. Pt's voice is perceptually harsh with pitch breaks. Dr. Veras performed an endoscopic examination and reported that the left vocal fold was erythmatic with an uneven edge , possibly related to pt's most recent coughing attack/ laryngospasm. [ End Subjective Identification Type Name,Date of Parent/Caretake Knowledge/Awareness of Excellent TUBE MAKER Role in Treatment Objective Short Term Goals Pt will be referred to ENT for stroboscopy ([facility] Pt will be referred for MBSS assessment of swallow safety Therapeutic strategies and therapy emphasis will be more specified following MBSS and Stroboscopy Treatment Activities Pt reported 2 asthma attacks and 2 laryngospasm attacks since last session. Pt did not remember to use sniff breathing due ot panic. Reviewed breathing techniques to calm herself (i.e., sniff a ,d relaxed abdominal breathing technique). Reviewed with her assisting pt in recovery from laryngospasm via coaching pt during laryngospasm episodes. both pt and her expressed understanding and agreement with the HEP/POC Assessment Patient Response to Treatment Excellent Rehab Potential Good Impairments Identified Swallow,Voice Reviewed with Patient Goals,Home Exercise Program Patient/Caregiver Understanding Excellent Plan Amount of Therapy Recommended 3 Months Length of Session 60 Minutes Therapeutic Contents Swallowing/Feeding,Voice Training Provided Patient/Caregiver Instruction Home Exercise Program,Plan of Care
--- NOTE | 2022-08-15 09:34 | ST.OPTN ---
Visit Care Team Role Provider Type Lázaro Mccall DO Primary Care Provider Non-Staff Address: [address] [place] [address], [id number] Fazal Veras MD Attending Provider Physician Referring Provider Address: [address] [place] [address], [id number] LINUX VMWARE ADMINISTRATOR Treatment Note LINUX VMWARE ADMINISTRATOR Treatment Note Start: 07/25/22 13:37 Freq: Status: Active Protocol: Document 08/15/22 09:04 LNK (Rec: 08/15/22 09:34 LNK [id number]) Speech Pathology Treatment Note Session Time Visit Start Time 08:30 Visit Stop Time 09:00 Total Visit Minutes 30 Visit Information Visit Number 3 Plan of Care Dates 07/25/22-10/19/22 Visit Type Note Type Treatment Note Next Note Type Next Note Type Treatment Note General Information Patient History Pt was seen for a voice/ laryngospasm assessment at the referral of Dr. Veras, ENT. According to the pt, she has a complicated medicat history that includes bilateral mastectomy for breast cancer, lung cancer, asthma, right side lymph glands removal, GERD, a hiatal hernia and 30+ radiation treatments to the upper left chest near her sternum. Relative to the laryngospasm, the pt reports that they typically occur when she drinks a liquid or swallows her saliva and if she eats a food that is crumbly, like a cookie or cracker. The last time this ocurred was about a month ago, pt reported . When this happens, she can cough hard for an extended time. Her will calm her with deep breathing. Pt's voice is perceptually harsh with pitch breaks. Dr. Veras performed an endoscopic examination and reported that the left vocal fold was erythmatic with an uneven edge , possibly related to pt's most recent coughing attack/ laryngospasm. [ End Subjective Identification Type Name,Date of Parent/Caretake Knowledge/Awareness of Excellent LINUX [employer] ADMINISTRATOR Role in Treatment Objective Short Term Goals Pt will be referred to ENT for stroboscopy ([facility] Pt will be referred for MBSS assessment of swallow safety Therapeutic strategies and therapy emphasis will be more specified following MBSS and Stroboscopy Treatment Activities pt reported 1 laryngospasm attacks since last session. Pt did remember to use sniff breathing with 's coaching. Pt found sniff to be effective and the episode was shorter in duration. Reviewed breathing techniques to calm herself (i.e., sniff, relaxed abdominal breathing technique). Reviewed with pt and recovery from laryngospasm via coaching pt during laryngospasm episodes. Waiting for referrals for MBSS and laryngospasm Assessment Patient Response to Treatment Excellent Rehab Potential Good Impairments Identified Swallow,Voice Reviewed with Patient Goals,Home Exercise Program Patient/Caregiver Understanding Excellent Plan Amount of Therapy Recommended 3 Months Length of Session 60 Minutes Therapeutic Contents Swallowing/Feeding,Voice Training Provided Patient/Caregiver Instruction Home Exercise Program,Plan of Care
--- NOTE | 2022-08-29 11:31 | ST.OPDS ---
Visit Care Team Role Provider Type Lázaro Mccall DO Primary Care Provider Non-Staff Address: [address] [place] [address], [id number] Fazal Veras MD Attending Provider Physician Referring Provider Address: [address] [place] [address], [id number] FLAT CLOTHIER Treatment Note FLAT [employer]OTHIER Treatment Note Start: 07/25/22 13:37 Freq: Status: Active Protocol: Document 08/29/22 11:28 LNK (Rec: 08/29/22 11:31 LNK [id number]) Speech Pathology Treatment Note Visit Type Note Type Discharge Summary General Information Patient History Pt was seen for a voice/ laryngospasm assessment at the referral of Dr. Veras, ENT. According to the pt, she has a complicated medical history that includes bilateral mastectomy for breast cancer, lung cancer, asthma, right side lymph glands removal, GERD, a hiatal hernia and 30+ radiation treatments to the upper left chest near her sternum. Relative to the laryngospasm, the pt reports that they typically occur when she drinks a liquid or swallows her saliva and if she eats a food that is crumbly, like a cookie or cracker. The last time this ocurred was about a month ago, pt reported . When this happens, she can cough hard for an extended time. Her will calm her with deep breathing. Pt's voice is perceptually harsh with pitch breaks. Dr. Veras performed an endoscopic examination and reported that the left vocal fold was erythmatic with an uneven edge , possibly related to pt's most recent coughing attack/ laryngospasm. [ End Subjective Identification Type Name,Date of Objective Short Term Goals Pt will be referred to ENT for stroboscopy ([facility] Pt will be referred for MBSS assessment of swallow safety Therapeutic strategies and therapy emphasis will be more specified following MBSS and Stroboscopy Assessment Assessment of Improvement Pt notified rehab clinic that she is expecting to have bilateral wrist surgery and will need to cancel further appointments. Plan Provided Patient/Caregiver Instruction Home Exercise Program,Plan of Care Therapy Recommendations Discharge from Speech Therapy Reason for Discharge Pt request
== END 2022-08-30 10:00 | disposition home or self-care (01) ==
LOC: SP 08:30
PROVIDERS: PCP Family Medicine; Referring Provider Otolaryngology; Visit Provider Otolaryngology
DX: J38.5 Laryngeal spasm (principal); R49.0 Dysphonia; J04.0 Acute laryngitis
CPT/HCPCS: 92507; 92524

== ENCOUNTER 2022-08-23 20:13 | Emergency (ER) | payer OTHER, SELFPAY ==
[2020-12-06 18:29] VITALS: BMI 33.6
[2022-08-23 20:23] VITALS: BP 132/60; PULSE 79; RESP 20; TEMP 36.4; O2SAT 96; BMI 36.9
--- NOTE | 2022-08-23 20:31 | DI.RAD.S_ITS ---
PROCEDURE: XR WRIST RT MIN 3V INDICATIONS: fall with injury, pain TECHNIQUE: 3 views of the wrist were acquired. COMPARISON: None. FINDINGS: Bones: There is a comminuted fracture of the distal radius with extension to the radiocarpal and distal radioulnar joints. There is mild dorsal displacement and minimal dorsal angulation. Soft tissues: No suspicious soft tissue calcifications. IMPRESSION: 1. Comminuted intra-articular fracture of the distal radius. Dictated by: Elpidio Norman M.D. on 08/23/2022 at 22:23 Approved by: Elpidio Norman M.D. on 08/23/2022 at 22:24
--- NOTE | 2022-08-23 20:31 | DI.RAD.S_ITS ---
PROCEDURE: XR WRIST LT MIN 3V INDICATIONS: fall with injury, pain TECHNIQUE: 3 views of the wrist were acquired. COMPARISON: None. FINDINGS: Bones: There is a comminuted fracture of the distal radius extending to the radiocarpal and distal radioulnar joints. There is mild dorsal displacement and minimal dorsal angulation. A mildly displaced fracture of the ulnar styloid is also demonstrated. Soft tissues: No suspicious soft tissue calcifications. IMPRESSION: 1. Comminuted intra-articular fracture of the distal radius as described. 2. Mildly displaced ulnar styloid fracture. Dictated by: Elpidio Norman M.D. on 08/23/2022 at 22:22 Approved by: Elpidio Norman M.D. on 08/23/2022 at 22:23
--- NOTE | 2022-08-23 20:31 | DI.RAD.S_ITS ---
PROCEDURE: XR KNEE RT 3V INDICATIONS: fall with injury, pain TECHNIQUE: 2 views of the knee were acquired. COMPARISON: None. FINDINGS: Bones: No fractures or dislocations. There is a right knee prosthesis demonstrated. No definite suspicious periprosthetic lucencies. No suspicious bony lesions. Soft tissues: No joint effusion. No suspicious soft tissue calcifications. IMPRESSION: 1. No fractures or dislocation. Dictated by: Elpidio Norman M.D. on 08/23/2022 at 22:24 Approved by: Elpidio Norman M.D. on 08/23/2022 at 22:25
--- NOTE | 2022-08-23 21:00 | PC.NURSE ---
Relates that she was walking outside when she tripped on the garden hose and fell forward landing on her knee and both outstretched arms - states that she knew instantly that both wrists were broken - states that she felt them as they hit the ground - denies hitting head or LOC - alert and oriented - remembers events and the fall
--- NOTE | 2022-08-23 22:02 | ED_ITS ---
HPI - Extremity Injury (Upper) General Chief Complaint: Extremity Injury, Upper Stated Complaint: EVERARDO cordero Time Seen by Provider: 08/23/22 21:22 Source: patient Mode of arrival: Wheelchair Limitations: no limitations History of Present Illness HPI narrative: This is a 61-year-old female with multiple medication allergies, known breast and lung cancer with hypo thyroidism, COPD and GERD. Patient was outside in the dark tripped on a hose fell on her knee and both arms on outstretched hands. Patient states she has significant pain in both wrists and can not move them. She has a little bit of tingling in her left middle finger. She can move her fingers but has significant pain. She states her knee hurts but she can move it and ambulated on it. Patient denies hitting her head, she denies other injurie s. No chest pain or shortness of breath, no nausea or vomiting no other GI or urinary symptoms. Patient does have a port in place she has had bilateral mastectomy, cholecystectomy and right knee arthroplasty in the past. She is actively on letrozole for her breast CA, she states she just has a small spot in her lung from her metastatic cancer. Patient states she is very sensitive to tapes she states she can tolerate paper tape with Benadryl. She states that she has had procedural sedation and tolerated these without any significant issues. Her last intake was at 7:00 p.m. this evening. Related Data Home Medications Medication Instructions Recorded Confirmed ALBUTEROL SULFATE (Ventolin / 1 - 2 puff INH PRN PRN Shortness 11/09/10 12/07/20 Proventil) Of Breath ##0 VITAMIN D (Vitamin D3) 10,000 unit PO QDAY ##0 09/27/16 12/07/20 fluoxetine 40 mg capsule (Prozac) 40 mg PO QDAY ##0 09/27/16 12/06/20 multivitamin (Multiple Vitamins 1 tab PO QDAY ##0 09/27/16 12/06/20 tablet) budesonide-formoterol [Symbicort] 2 puff inhalation BID 07/18/19 12/07/20 letrozole 2.5 mg tablet 2.5 mg PO DAILY 07/18/19 12/06/20 meclizine 25 mg tablet 25 mg PO PRN PRN Vertigo 07/18/19 12/06/20 cetirizine 10 mg capsule (Zyrtec) 10 mg PO DAILY 12/06/20 12/06/20 levothyroxine 150 mcg tablet 150 mcg PO DAILY 12/06/20 12/06/20 (Synthroid) pantoprazole 20 mg tablet,delayed 20 mg PO DAILY 12/06/20 12/06/20 release (Protonix) itraconazole 10 mg/mL oral solution 200 mg PO DAILY 12/07/20 12/07/20 Previous Rx's Medication Instructions Recorded prednisone 20 mg tablet 40 mg PO DAILY #5 tabs 12/08/20 methylprednisolone 4 mg tablets in See Rx Instructions PO PER PKG DIR 07/19/22 a dose pack (Medrol (Jeb)) #21 ea azithromycin 250 mg tablet See Rx Instructions PO .COMPLEX 5 08/19/22 days #6 tabs hydrocodone 5 mg-acetaminophen 325 1 tab PO Q6H PRN pain #20 tabs 08/24/22 mg tablet hydroxyzine pamoate 25 mg capsule 25 mg PO QID PRN spasms #20 caps 08/24/22 (Vistaril) Allergies Allergy/AdvReac Type Severity Reaction Status Date / Time adhesive Allergy Unknown Verified 08/19/22 13:45 aspirin Allergy Unknown Verified 08/19/22 13:45 chlorpheniramine Allergy Unknown Verified 08/19/22 13:45 codeine Allergy Unknown Verified 08/19/22 13:45 dextromethorphan Allergy Unknown Verified 08/19/22 13:45 gabapentin Allergy Unknown Verified 08/19/22 13:45 guaifenesin Allergy Unknown Verified 08/19/22 13:45 hydromorphone Allergy Unknown Verified 08/19/22 13:45 iodine Allergy Unknown Verified 08/19/22 13:45 latex Allergy Unknown Verified 08/19/22 13:45 montelukast Allergy Unknown Verified 08/19/22 13:45 pecan nut [PECAN NUT] Allergy Unknown Verified 08/19/22 13:45 pseudoephedrine Allergy Unknown Verified 08/19/22 13:45 shellfish derived Allergy Unknown Verified 08/19/22 13:45 [SHELLFISH DERIVED] Sulfa (Sulfonamide Allergy Unknown Verified 08/19/22 13:45 Antibiotics) walnut [WALNUT] Allergy Unknown Verified 08/19/22 13:45 Review of Systems Review of Systems ROS Unobtainable: All systems reviewed & are unremarkable except as noted in HPI and below Patient History Medical History Acute idiopathic pericarditis Anxiety Asthma Carcinoma of left lung Cough Epistaxis Gastritis History of malignant neoplasm of both breasts Hyperglycemia Hyperlipidemia Hyperthyroidism Injury of nasal sinus Insomnia Invasive ductal carcinoma of left breast in female Migraine Port-A-Cath in place Radiation-induced esophagitis Vertigo Surgical History H/O bilateral mastectomy History of right knee joint replacement Hx of cholecystectomy Hx of lymph node excision Family History Mother Early onset Alzheimer's dementia Brother Early onset Alzheimer's dementia Father Myocardial infarct CVA (cerebral vascular accident) Brother Asthma Sister Nasopharyngeal cancer Social History household members: spouse Smoking Status: Never smoker Smoking Status: Never smoker alcohol intake frequency: 0-2 drinks per day Substance Use Type: does not use Exam Narrative Exam Narrative: GEN: Patient appears in [id number] distress. HEAD: No evidence of trauma, no raccoon/Michael sign. NECK: Nontender, painless range of motion, trachea midline Negative for Nexus criteria, there is no midline line tenderness, distracting injury, altered mental status, neuro deficit, recent EtOH. EYES: PERRLA, EOMI ENT: External inspection normal, trachea is midline, TM's are normal no hemotypanum, Nares are clear, no septal hematoma, no dental or oral injury, airway is normal and with normal occlusion, No bony tenderness RESP: Chest is nontender and has symmetric movement, no ecchymosis, breath sounds are normal no crackles, wheezes or rales CVS: Heart sounds are normal, no murmur noted, No JVD. ABG/GI: Nontender, soft, normal bowel sounds, no distention, no organomegaly, pelvic rock is negative NEURO: Oriented AOx3, neuro is grossly intact, sensation and motor is normal all 4 extremities moving, cranial nerves II through XII are intact, GCS is 15 PSYCH: Normal mood and affect SKIN: Intact, warm and dry, no crepitus and without decubitus BACK: No CVA tenderness, no vertebral tenderness, no step-off's, no crepitus EXT: Patient has bilateral wrist deformity, no bony tenderness in the fingers or hands, she has full range of motion with flexion, extension adduction and abduction, patient has no bony tenderness and normal movement at the shoulders and elbows. She has full range of motion bilateral lower extremities., hips are nontender, no pedal edema, normal color and temperature, normal range of motion of extremities with normal tendon exam, 2+ pulses in all four extremities. Cap refill less than 2 seconds in all 10 fingers patient appreciates slight difference in her 3rd finger on the left hand but has sensation to light touch. Initial Vital Signs Initial Vital Signs: Vital Signs Temperature 97.6 F 08/23/22 20: Pulse Rate 79 08/23/22 20:23 Respiratory Rate 20 08/23/22 20:23 Blood Pressure 132/60 08/23/22 20:23 Pulse Oximetry 96 08/23/22 20:23 Oxygen Delivery Method 08/23/22 20:23 Procedures Orthopedic Fracture Reduction Fracture #1: Time of procedure: 00:07 Time Out Performed: Yes Side: right Fracture Reduction Location: radius Analgesia: procedural sedation Technique: direct manipulation and traction/counter-traction Post Reduction X-rays Demonstrate: acceptable reduction Post-reduction neuro exam: intact and no change Post-reduction vascular exam: intact and no change Splint Applied: Yes Patient Tolerated Procedure: Well Fracture #2: Time of procedure: 00:07 Time Out Performed: Yes Side: left Fracture Reduction Location: radius Analgesia: procedural sedation Technique: direct manipulation and traction/counter-traction Post Reduction X-rays Demonstrate: acceptable reduction Post-reduction neuro exam: intact and no change Post-reduction vascular exam: intact and no change Splint Applied: Yes Patient Tolerated Procedure: Well Procedural Sedation Time of procedure: 00:07 Consent signed: Yes Time out performed: Yes Indication: fracture/dislocation reduction Mallampati Airway Classification: Class II Time of Last PO Intake: 19:00 Preparation: cardiac rn applied, pulse oximeter, capnometry used, supplemental O2 applied, suction/airway equipment at bedside and IV secured IV Propofol dose (mg): 125 Intraservice time/total sedation time (min): 25 ED Sedation Level: Moderate (Concious) Patient Tolerated Procedure: Well Complications: none Course Orders Ordered: ED Orders 08/24/22 00:19 XR wrist LT 2V Stat XR wrist RT 2V Stat Discontinued Medications Hydrocodone Bitart/Acetaminophen (Hydrocodone/Acet 5/325 Prepack) 1 bottle MISC SEEINSTR ONE Stop: 08/24/22 02:01 Last Admin: 08/24/22 02:17 Dose: 1 bottle Documented By: MIRELLA Diphenhydramine HCl (Diphenhydramine 50 Mg/Ml Vial) 25 mg IV NOW ONE Stop: 08/23/22 22:03 Last Admin: 08/24/22 01:03 Dose: Not Given Documented By: MIRELLA Heparin Sodium (Porcine) (Heparin 500 Unit/5 Ml Port Flush) 500 unit IV PRN PRN PRN Reason: Flush Last Admin: 08/24/22 02:17 Dose: 500 unit Documented By: MIRELLA Ketorolac Tromethamine (Ketorolac 30 Mg/Ml Vial) 15 mg IV NOW ONE Stop: 08/23/22 21:31 Last Admin: 08/23/22 22:30 Dose: 15 mg Documented By: MIRELLA Ondansetron HCl (Ondansetron 4 Mg/2 Ml Inj) 4 mg IV NOW ONE Stop: 08/23/22 21:23 Last Admin: 08/24/22 01:02 Dose: Not Given Documented By: MIRELLA Propofol (Propofol 200 Mg/20 Ml Vial) 100 mg 1 mg/kg (100 mg) IV NOW ONE Stop: 08/23/22 23:50 Propofol (Propofol 200 Mg/20 Ml Vial) 125 mg IV NOW ONE Stop: 08/24/22 00:01 Last Admin: 08/24/22 00:17 Dose: 125 mg Documented By: MIRELLA Consultations Consultation #1: sophia Julien, orthopedics follow up with office. Patient contact info for follow up and image review. Vital Signs Vital signs: Vital Signs - 8 hr 08/24/22 00:24 08/23/22 23:30 08/23/22 23:30 Pulse Rate 88 89 Respiratory Rate 20 Blood Pressure 151/67 H Pulse Oximetry 97 08/24/22 00:00 08/24/22 00:00 08/24/22 00:15 Pulse Rate 87 83 Respiratory Rate Blood Pressure 140/60 Pulse Oximetry 97 97 08/24/22 00:15 08/24/22 00:20 08/24/22 00:20 Pulse Rate 86 Respiratory Rate Blood Pressure 138/60 134/61 Pulse Oximetry 96 08/24/22 00:25 08/24/22 00:25 08/24/22 00:30 Pulse Rate 88 87 Respiratory Rate 40 H Blood Pressure 134/61 Pulse Oximetry 96 95 08/24/22 00:31 08/24/22 00:31 08/24/22 00:36 Pulse Rate 83 Respiratory Rate 24 Blood Pressure 121/66 129/60 Pulse Oximetry 96 08/24/22 00:36 08/24/22 00:40 08/24/22 00:40 Pulse Rate 86 82 Respiratory Rate 32 H 28 H Blood Pressure 127/59 L Pulse Oximetry 95 96 08/24/22 00:45 08/24/22 00:45 08/24/22 00:50 Pulse Rate 84 Respiratory Rate 28 H Blood Pressure 131/59 L 133/62 Pulse Oximetry 93 08/24/22 00:50 08/24/22 00:55 08/24/22 00:55 Pulse Rate 79 77 Respiratory Rate 18 12 Blood Pressure 130/60 Pulse Oximetry 97 94 08/24/22 01:00 08/24/22 01:00 08/24/22 01:05 Pulse Rate 78 Respiratory Rate 14 Blood Pressure 133/63 137/63 Pulse Oximetry 96 08/24/22 01:05 08/24/22 01:10 08/24/22 01:10 Pulse Rate 77 75 Respiratory Rate 24 13 Blood Pressure 128/61 Pulse Oximetry 95 96 08/24/22 01:15 08/24/22 01:15 08/24/22 01:20 Pulse Rate 78 77 Respiratory Rate 14 15 Blood Pressure 145/63 H Pulse Oximetry 96 97 08/24/22 01:20 08/24/22 01:25 08/24/22 01:25 Pulse Rate 76 Respiratory Rate 23 Blood Pressure 132/62 134/59 L Pulse Oximetry 95 08/24/22 01:30 08/24/22 01:30 08/24/22 01:35 Pulse Rate 78 Respiratory Rate 14 Blood Pressure 134/62 119/56 L Pulse Oximetry 95 08/24/22 01:35 08/24/22 01:40 08/24/22 01:40 Pulse Rate 73 76 Respiratory Rate 12 18 Blood Pressure 132/60 Pulse Oximetry 94 95 08/24/22 01:45 08/24/22 01:45 08/24/22 01:50 Pulse Rate 78 Respiratory Rate 15 Blood Pressure 135/57 L 131/62 Pulse Oximetry 93 08/24/22 01:50 08/24/22 01:55 08/24/22 01:55 Pulse Rate 76 78 Respiratory Rate 14 19 Blood Pressure 122/50 L Pulse Oximetry 94 95 MDM - Extremity Injury (Upper) Lab Data Labs: Point of Care Testing Test Results Not applicable Imaging Data Extremity x-ray #1: Radiologist's Impression: [address] [address] XRay Report Signed Patient: Yennifer Boo I MR#: [id number] : 1960 Acct:[id number] Age/Sex: 61 / F Date of Service: 08/23/22 Loc: ED Accession Number: [id number] ?? Procedure: XR wrist RT min 3V Ordering Provider: Starla Bagley D.O. PROCEDURE:? XR WRIST RT MIN 3V ? INDICATIONS: fall with injury, pain ? TECHNIQUE:? 3 views of the wrist were acquired.? ? COMPARISON:? None. ? FINDINGS:? ? Bones:? There is a comminuted fracture of the distal radius with extension to the radiocarpal and distal radioulnar joints.? There is mild dorsal displacement and minimal dorsal angulation. ? Soft tissues:? No suspicious soft tissue calcifications.? ? IMPRESSION:? ? 1. Comminuted intra-articular fracture of the distal radius. ? ? Dictated by: Elpidio Norman M.D. on 08/23/2022 at 22:23 ? ? Approved by: Elpidio Norman M.D. on 08/23/2022 at 22:24?? Extremity x-ray #2: Radiologist's Impression: [address] [address] XRay Report Signed Patient: Yennifer Boo I MR#: [id number] : 1960 Acct:[id number] Age/Sex: 61 / F Date of Service: 08/23/22 Loc: ED Accession Number: [id number] ?? Procedure: XR wrist LT min 3V Ordering Provider: Starla Bagley D.O. PROCEDURE:? XR WRIST LT MIN 3V ? INDICATIONS: fall with injury, pain ? TECHNIQUE:? 3 views of the wrist were acquired.? ? COMPARISON:? None. ? FINDINGS:? ? Bones:? There is a comminuted fracture of the distal radius extending to the radiocarpal and distal radioulnar joints.? There is mild dorsal displacement and minimal dorsal angulation.? A mildly displaced fracture of the ulnar styloid is also demonstrated. ? Soft tissues:? No suspicious soft tissue calcifications.? ? IMPRESSION:? ? 1. Comminuted intra-articular fracture of the distal radius as described. ? 2. Mildly displaced ulnar styloid fracture. ? ? Dictated by: Elpidio Norman M.D. on 08/23/2022 at 22:22 ? ? Approved by: Elpidio Norman M.D. on 08/23/2022 at 22:23?? Extremity x-ray #3: Radiologist's Impression: Close Chest X-Ray (Signed) Elpidio Norman - 08/22/22 [address]?[place] [address] XRay Report Signed Patient: Luis Fernando Rocha MR#: [id number] : 06/27/2024 Acct:[id number] Age/Sex: 01M 26D / F Date of Service: 08/22/22 Loc: ED Accession Number: [id number] ?? Procedure: XR chest 1V Ordering Provider: Starla Bagley D.O. PROCEDURE:? XR CHEST 1V ? INDICATIONS:? fever, congestion ? TECHNIQUE:? One view of the chest was acquired.? ? COMPARISON:? None. ? FINDINGS:? ? Surgical changes and devices:? None.? ? Lungs and pleura:? There is mild perihilar bronchial wall thickening compatible with bronchiolitis.? No focal consolidation.? No pleural effusions or pneumothorax.? ? Mediastinum:? Cardiothymic silhouette appears within normal limits.? Heart size is normal.? ? Bones and chest wall:? No suspicious bony lesions.? Overlying soft tissues appear unremarkable.? ? IMPRESSION:? ? 1. Mild perihilar bronchial wall thickening compatible with bronchiolitis.? ? ? Dictated by: Elpidio Norman M.D. on 08/22/2022 at 22:54 ? ? Approved by: Elpidio Norman M.D. on 08/22/2022 at 22:54?? [facility] Narrative Medical decision making narrative: This is a 61-year-old female had a fall on outstretched hands with bilateral wrist fractures, patient had pain with knee has negative x-ray and was ambulating in the department and prior without issue. Patient has obvious deformity, patient received pain medication, access to her port and after discussion as she is multiple allergies felt would be appropriate candidate for procedural sedation, propofol and attempted reduction. Was somewhat difficult and patient tolerated procedure overall well. Some reduction but not anatomical. Reviewed with orthopedics. Follow-up patient is neurovascularly intact and discuss will likely require surgical repair. She is able to ambulate safely here in the department without any assistance, her lives with he r and will help assist her in the short term. Discharge Plan Departure Patient Disposition: Home Clinical Impression: Closed fracture of both wrists Instructions: DI for Wrist Fracture Activity Restrictions/Additional Instructions: Follow-up with orthopedic surgery in the next 7-10 days for recheck. Please call for an appointment Friday. Prescription for pain meds sent to [facility] Splint Care: Keep splint clean and dry. Elevated affected body part to decrease swelling. OK to use ice pack on the affected body part. Use for 15-20 minutes each time, for 5-6x per day. If you develop worsening pain, numbness, tingling, discoloration of the affected body part, loosen the splint by loosening the RENE wrap, and either see your doctor for an urgent re-assessment, or return to the Emergency Department. Return to the Emergency Department for any new or worsening symptoms. Please return for rapidly worsening symptoms, new numbness weakness loss of sensation, increasing swelling, inability to lift or move her arms hands or other new or concerning changes. Prescriptions: New hydroxyzine pamoate [Vistaril] 25 mg capsule 25 mg PO QID PRN (Reason: spasms) Qty: 20 0RF hydrocodone-acetaminophen 5-325 mg tablet 1 tab PO Q6H PRN (Reason: pain) Qty: 20 0RF No Action budesonide-formoterol 2 puff INHALATION BID meclizine 25 mg tablet 25 mg PO PRN PRN (Reason: Vertigo) letrozole 2.5 mg tablet 2.5 mg PO DAILY methylprednisolone [Medrol (Jeb)] 4 mg tablets,dose pack See Rx Instructions PO PER PKG DIR Qty: 21 0RF Rx Instructions: PO PER PKG DIR azithromycin 250 mg tablet See Rx Instructions PO .COMPLEX 5 Days Qty: 6 0RF Rx Instructions: take 500 mg today (day 1), then 250 mg for 4 days (days 2-5) PO ALBUTEROL SULFATE (Ventolin / Proventil) 1 - 2 puff INH PRN PRN (Reason: Shortness Of Breath) Qty: 0 multivitamin [Multiple Vitamins] 1 EACH tablet 1 tab PO QDAY Qty: 0 fluoxetine [Prozac] 40 MG capsule 40 mg PO QDAY Qty: 0 VITAMIN D (Vitamin D3) 10,000 unit PO QDAY Qty: 0 pantoprazole [Protonix] 20 mg Tablet,Delayed Release (Dr/Ec) 20 mg PO DAILY Zyrtec 10 mg Capsule 10 mg PO DAILY levothyroxine [Synthroid] 150 mcg Tablet 150 mcg PO DAILY itraconazole 10 mg/mL Solution 200 mg PO DAILY prednisone 20 mg Tablet 40 mg PO DAILY Qty: 5 0RF Referrals: Sophia Julien MD [Physician] - Lázaro Mccall DO [Primary Care Provider] - Visit Report Forms: Patient Portal/API
--- NOTE | 2022-08-23 22:15 | PC.NURSE ---
pt requires specialized tape and securement device for the port as she is allergic to all tapes - states that they cause blisters - the specialized tape comes from oncology and is not in the ER - the patient states that she does not have her supply with her - options given and the patient states that she can attempt paper tape with benadryl to prevent the reaction - showed the allevyn cover and states that this is similar to the dressing she uses - asks to try it - used to cover the port
[2022-08-23] MEDS: KETOROLAC 30 MG/ML VIAL 15 MG IV (22:30)
[2022-08-23 23:30] VITALS: BP 151/67; PULSE 89; O2SAT 97
[2022-08-24] VITALS (24 sets, daily range): BP systolic 119–145; BP diastolic 50–66; PULSE 73–88; RESP 12–40; O2SAT 93–97
[2022-08-24] MEDS: propofoL 200 MG/20 ML VIAL 125 MG IV (00:17)
--- NOTE | 2022-08-24 00:19 | DI.RAD.S_ITS ---
PROCEDURE: XR WRIST RT 2V INDICATIONS: post reduction TECHNIQUE: 2 views of the wrist were acquired. COMPARISON: [facility], CR, XR WRIST LT MIN 3V, 08/23/2022, 20:46. FINDINGS: Bones: Comminuted intra-articular distal radial fracture shows improved alignment. Mom auto text osteopenia. Overlying fiberglass cast noted Soft tissues: No suspicious soft tissue calcifications. IMPRESSION: Comminuted intra-articular distal radial fracture with improved alignment in overlying fiberglass cast Approved by: Lázaro Gordon M.D. on 08/24/2022 at 9:08
--- NOTE | 2022-08-24 00:19 | DI.RAD.S_ITS ---
PROCEDURE: XR WRIST LT 2V INDICATIONS: post reduction TECHNIQUE: 2 views of the wrist were acquired. COMPARISON: [facility], CR, XR WRIST LT MIN 3V, 08/23/2022, 20:46. FINDINGS: Bones: Comminuted distal radial fracture with dorsal displacement and angulation is in similar position compared to the prior exam. Overlying fiberglass splint Soft tissues: No suspicious soft tissue calcifications. IMPRESSION: Comminuted intra-articular distal radial fracture in splint Approved by: Lázaro Gordon M.D. on 08/24/2022 at 9:03
--- NOTE | 2022-08-24 01:30 | PC.NURSE ---
08/23/2022 2030: XRays completed at this time 2100: Assessment performed at this time - family at bedside 2130: In room to start IV - pt states that she has a port that can be used for access - states that she needs specialized tape for securement as she breaks out in hives from all types - to go to car to see if they have any supplies 2200: MD at bedside - digital block offered for procedure - pt prefers sedation - family at bedside 2215: Port accessed with positive blood return - tolerated well 2225: ambulatory to the bathroom with steady gait - assisted by 2230: Medicated with toradol for pain 2300: states that the toradol took the edge off of the pain - sitting on the bed with arms elevated on a pillow - family at bedside - cap refill brisk - CMS intact - no c/o numbness or tingling or change in sensation - able to move fingers without concern 2330: Pt to have moderate sedation for reduction of the wrist fractures - consents signed by pt and MD - room readied for the procedure - suction set up to high - tubing and yanker attached - adult ambu bag at bedside - code cart and scope at bedside for PRN use - splinting cart at bedside - port access patent - flushed with NS - placed on secured entrance monitor with cycling BP and continuous pulse ox - placed on 2L of O2 via NC with capnography by RT - pt and family denies questions about procedures 08/24/2022 0000: MD, RN, and RT at bedside for procedure 0005: Timeout pause performed for procedure 0007: Propofol 50mg given IV through the port 0010: Propofol 50mg given IV through the port 0012: splint completed to the left wrist - CMS intact - cap refill brisk 0015: pt c/o pain - awakening with manipulation of the right wrist 0017: Propofol 25mg given IV through the port 0019: splint completed to the right wrist - CMS intact - cap refill brisk - XR at bedside for post-reduction films 0030: Procedure and XRays completed at this time - patient awakening but still slightly sleepy - requires O2 - RA sats decrease to 92% 0100: Procedure & bedside RN monitoring of patient post sedation performed at this time - pt speaking in clear full sentences - airway patent- remains on 2L of O2 via NC - at bedside - states pain is a 12/27 129: Awake - taking sips of po fluid at this time - no needs voiced - states that the pain has increased to 02/26 - removed from the O2 - states that she has home O2 that she uses about 2 times a month as needed - especially with exertion
--- NOTE | 2022-08-24 02:15 | PC.NURSE ---
0200: Ambulatory to the bathroom - steady gait 0215: Port de-accessed after flush with 10ml of NS followed by heparin - tolerated well
[2022-08-24] MEDS: HYDROCODONE/ACET 5/325 PREPACK 1 BOTTLE MISC (02:17)
== END 2022-08-24 02:28 | disposition home or self-care (01) ==
PROVIDERS: Emergency Provider Emergency Medicine; PCP Family Medicine
DX: S52.502A Unspecified fracture of the lower end of left radius, initial encounter for closed fracture (principal); S52.501A Unspecified fracture of the lower end of right radius, initial encounter for closed fracture; W18.30XA Fall on same level, unspecified, initial encounter
CPT/HCPCS: 25605; 73100; 73110; 73560; 96374; 99152; 99284; J1642; J1885; J2704

== ENCOUNTER → 2022-08-28 12:17 | Outpatient (CLI) | payer OTHER, SELFPAY ==
[2020-12-06 18:29] VITALS: BMI 33.6
[2022-08-28 13:10] LABS: COVID19 -Nasal RAPID Negative (Negative)
[2022-08-28 13:57] LABS: Add Manual Diff / Slide Review NO; Basophils Absolute Auto 0 /uL (0-100); Basophils Percent Auto 0.6 % (0-2); Eosinophils Absolute Auto 200 /uL (0-450); Eosinophils Percent Auto 2.8 % (2-4); Hematocrit 37.9 % (36-46); Hemoglobin 12.7 g/dL (12.0-16.0); Lymphocytes Absolute Auto 1900 /uL (1100-4500); Lymphocytes Percent Auto 26.5 % (25-40); Mean Corpuscular HGB Conc 33.5 % (30-36); Mean Corpuscular Volume 83.7 fL (80-100); Monocytes Absolute Auto 700 /uL (0-900); Monocytes Percent Auto 9.6 % (3-14); Neutrophils Absolute Auto 4400 /uL (1500-7000); Neutrophils Percent Auto 60.5 % (50-75); Platelet Count 343 X10^3/uL (150-400); Red Blood Cell Count 4.53 X10^6/uL (4.0-5.2); Red Cell Distribution Width 15.8 % (11.6-14.8); White Blood Cell Count 7.3 X10^3/uL (4.5-11.0)
[2022-08-28 14:36] LABS: BUN Creatinine Ratio 13.9 (6-22); Blood Urea Nitrogen 11 mg/dL (7-17); Calcium 9.6 mg/dL (8.4-10.2); Carbon Dioxide 22 mmol/L (22-32); Chloride 104 mmol/L (98-107); Estimated Glomerular Filt Rate > 60 mL/min (>60); Glucose 97 mg/dL (80-110); HEMOLYSIS < 15 (0-50); Potassium 4.4 mmol/L (3.4-5.1); Sodium 138 mmol/L (137-145)
== END ==
PROVIDERS: PCP Family Medicine; Referring Provider Orthopaedic Surgery; Visit Provider Orthopaedic Surgery
DX: Z01.818 Encounter for other preprocedural examination (principal); Z01.812 Encounter for preprocedural laboratory examination; Z11.59 Encounter for screening for other viral diseases; Z20.822 Contact with and (suspected) exposure to COVID-19
CPT/HCPCS: 36415; 80048; 85025; 87635; 93005; 93010; C9803

== ENCOUNTER 2022-08-30 12:46 | Day surgery (SDC) | payer OTHER, SELFPAY ==
[2020-12-06 18:29] VITALS: BMI 33.6
[2022-08-29 13:09] VITALS: BMI 34.4
[2022-08-30] VITALS (7 sets, daily range): BP systolic 140–191; BP diastolic 67–94; PULSE 4–107; RESP 11–169; TEMP 36.7–37; O2SAT 16–96; BMI 34.4
[2022-08-30] MEDS: LACTATED RINGERS 1,000 ML 42 ML IV ×2 (13:44→17:00)
--- NOTE | 2022-08-30 15:31 | PM.PREOP ---
Pre-operative Note Interval Note History & Physical reviewed/Exam performed by Physician: Yes Changes to H&P: No
[2022-08-30] MEDS: CEFAZOLIN 2 GM/100 ML PREMIX 100 ML IV (16:00)
--- NOTE | 2022-08-30 16:27 | SUR.OPER ---
Supine on padded OR bed, head on pillow, arms secured on padded black surgical arm boards at <90 degrees abduction, legs uncrossed, safety belt at thigh, gel pad under bilateral heels.
[2022-08-30] MEDS: TRANEXAMIC ACID 1,000 MG VIAL 1000 MG INJ (17:41)
[2022-08-30] MEDS: BUPIVACAINE 0.5% W/ EPI (PF) 30 ML VIAL INJ (17:43)
--- NOTE | 2022-08-30 18:27 | PM.OP.1 ---
Procedure & Clinicians Procedure: 1. ORIF right 3 part intra-articular distal radius fracture 2. ORIF left 3 part intra-articular distal radius fracture Same procedure as scheduled: Yes Indications: This is a 61-year-old female who had a ground level fall sustaining bilateral distal radius fractures. She was seen at [facility] and splinted and x-rays were obtained. She then saw me in clinic and was scheduled for surgery. Surgery was recommended for reduction of the fracture, for better range of motion and to reduce the likelihood of posttraumatic osteoarthritis. Surgeon: Fab [employer] Counselor: Jessica Ortiz Anesthesia Type: General Operative Notes Findings: 1. Left distal radius fracture, 3 parts, intra-articular as seen intraoperatively and on x-ray 2. Right distal radius fracture, 3 parts, intra-articular as seen intraoperatively and on x-ray Closure Type: primary Specimen(s): none sent Prosthetic devices, grafts, tissues, transplants, or devices: Accumed distal radius plate x2 Estimated Blood Loss (mL): 20 Blood products transfused: none Tourniquet time (min): 49 Procedure in detail: Patient was met in the preoperative holding area. Her bilateral upper extremities were examined and marked. We again went over consent discussed the risks including the risks of bleeding, infection, damage to internal structures including the radial artery and median nerve, numbness and tingling, failure of implants, malunion, and future surgery. All of her questions were answered fully to her satisfaction and she wished to go forward with the surgery. She was brought back to the operating room and placed supine on operating table. She underwent smooth induction of anesthesia and antibiotics were given. Tourniquets were applied to bilateral upper extremities. Bilateral extremities were draped and then prepped with alcohol. Appropriate drying time was observed. Time-out was performed and again my initials were noted. We began with a modified Mauri approach to the volar distal radius on the left side. FCR and FPL were retracted ulnarly and the radial nerve was retracted radially. Pronator quadratus was elevated off of the distal radius and the fracture was encountered. A manual reduction was performed and a K-wire was placed through the radial styloid to hold the reduction. An Acumed distal radius locking plate was applied to the distal radius and positioned provisionally with K-wires. The oblong shaft screw was then filled with a nonlocking cortical screw. We then sequentially filled the distal locking holes with locking screws. We then returned to the shaft and filled the last 2 remaining nonlocking cortical holes. The provisional K-wire was removed and final images were obtained confirming screw length and maintenance of reduction. Skin was then closed with 3-0 Vicryl and 3-0 nylon. Wound was then dressed with Xeroform, 4x4s, cast padding and a volar splint. We then turned to the right distal radius. We began with a modified volar Mauri approach. FCR and FPL were retracted ulnarly and the radial nerve was retracted radially. Pronator quadratus was elevated off of the distal radius and the fracture was encountered. A manual reduction was performed and a K-wire was placed through the radial styloid to hold the reduction. An Acumed distal radius locking plate was applied to the distal radius and positioned provisionally with K-wires. The oblong shaft screw was then filled with a nonlocking cortical screw. We then sequentially filled the distal locking holes with locking screws. We then returned to the shaft and filled the last 2 remaining nonlocking cortical holes. The provisional K-wire was removed and final images were obtained confirming screw length and maintenance of reduction. Skin was then closed with 3-0 Vicryl and 3-0 nylon. Wound was then dressed with Xeroform, 4x4s, cast padding and a volar splint. Assisting attestation: A qualified physician child care center assistant director was required for the case for these complex fractures which required expert tissue handling, manipulation, handling of instruments. Without her assistance, the case would not be possible. Complications: none Post-operative Condition: stable Disposition: PACU Plan for aftercare: Postoperatively, the splint will come off in clinic at her 1st postoperative visit. She will likely be transitioned to a Velcro wrist splint at that point for 4 weeks.
[2022-08-30] MEDS: ONDANSETRON 4 MG/2 ML INJ IV (18:56)
[2022-08-30] MEDS: OXYCODONE IR 5 MG TABLET PO ×2 (19:00→19:07)
== END 2022-08-30 19:45 | disposition home or self-care (01) ==
PROVIDERS: PCP Family Medicine; Referring Provider Orthopaedic Surgery Orthopaedic Surgery of the Spine; Visit Provider Orthopaedic Surgery
PROC: (CPT 25609; principal; 2022-08-30 14:00)
DX: S52.572A Other intraarticular fracture of lower end of left radius, initial encounter for closed fracture (principal); S52.571A Other intraarticular fracture of lower end of right radius, initial encounter for closed fracture; W01.0XXA Fall on same level from slipping, tripping and stumbling without subsequent striking against object, initial encounter; C34.90 Malignant neoplasm of unspecified part of unspecified bronchus or lung
CPT/HCPCS: 25609 ×2; J0690; J2250; J2405; J2704; J3010

== ENCOUNTER 2022-10-01 13:28 | Emergency (ER) | payer OTHER, SELFPAY ==
[2020-12-06 18:29] VITALS: BMI 33.6
[2022-10-01 13:31] VITALS: BP 140/68; PULSE 73; RESP 15; TEMP 36.4; O2SAT 96; BMI 36.6
--- NOTE | 2022-10-01 13:36 | DI.RAD.S_ITS ---
PROCEDURE: XR CHEST 1V INDICATIONS: chest pain TECHNIQUE: One view of the chest was acquired. COMPARISON: [facility], CT, CT CHEST ABDOMEN PELVIS WITH CONTRAST, 04/05/2022, 11:00. [facility], CR, XR CHEST 1V, 12/06/2020, 14:43. [facility], CR, CHEST 2 VIEW, 06/22/2016, 16:41. FINDINGS: Surgical changes and devices: Right-sided port with the catheter tip at the middle 3rd of the SVC. Left breast clips. Lungs and pleura: Lungs are clear. No pleural effusions or pneumothorax. Mediastinum: Mediastinal contours appear normal. Heart size appears prominent. Bones and chest wall: No suspicious bony lesions. Overlying soft tissues appear unremarkable. IMPRESSION: Lungs appear clear. Heart size appears prominent. Dictated by: Santy Rai M.D. on 10/01/2022 at 14:33 Approved by: Santy Rai M.D. on 10/01/2022 at 14:35
[2022-10-01 14:47] LABS: Add Manual Diff / Slide Review NO; Basophils Absolute Auto 0 /uL (0-100); Basophils Percent Auto 0.6 % (0-2); Eosinophils Absolute Auto 100 /uL (0-450); Eosinophils Percent Auto 1.1 % (2-4); Hematocrit 38.3 % (36-46); Hemoglobin 12.7 g/dL (12.0-16.0); Lymphocytes Absolute Auto 1700 /uL (1100-4500); Lymphocytes Percent Auto 22.7 % (25-40); Mean Corpuscular HGB Conc 33.2 % (30-36); Mean Corpuscular Volume 84.3 fL (80-100); Monocytes Absolute Auto 600 /uL (0-900); Monocytes Percent Auto 7.8 % (3-14); Neutrophils Absolute Auto 5000 /uL (1500-7000); Neutrophils Percent Auto 67.8 % (50-75); Platelet Count 271 X10^3/uL (150-400); Red Blood Cell Count 4.55 X10^6/uL (4.0-5.2); Red Cell Distribution Width 15.6 % (11.6-14.8); White Blood Cell Count 7.4 X10^3/uL (4.5-11.0)
[2022-10-01 14:55] LABS: Prothrombin Time 10.9 SECONDS (10.1-12.7)
[2022-10-01 14:58] LABS: PTT Partial Thromboplastin Tim 31 SECONDS (26-36)
[2022-10-01 15:00] LABS: Alanine Aminotransferase 35 IU/L (<35); Albumin 4.3 g/dL (3.5-5.0); Albumin Globulin Ratio 1.4 (1.0-2.8); Alkaline Phosphatase 136 U/L (38-126); Aspartate Aminotransferase 33 IU/L (14-36); BUN Creatinine Ratio 18.8 (6-22); Bilirubin Total 0.3 mg/dL (0.2-1.3); Blood Urea Nitrogen 13 mg/dL (7-17); Calcium 9.5 mg/dL (8.4-10.2); Carbon Dioxide 24 mmol/L (22-32); Chloride 102 mmol/L (98-107); Creatine Kinase 69 U/L (30-135); Estimated Glomerular Filt Rate > 60 mL/min (>60); Glucose 107 mg/dL (80-110); HEMOLYSIS < 15 (0-50); Lipase 56 U/L (23-300); Potassium 4.1 mmol/L (3.4-5.1); Sodium 136 mmol/L (137-145); Total Protein 7.3 g/dL (6.3-8.2)
[2022-10-01 15:05] VITALS: BP 111/54; PULSE 74; O2SAT 96
--- NOTE | 2022-10-01 15:07 | PC.NURSE ---
Portacath access: right Port site cleaned with alcohol per pt's request and port accessed with 1inch power port soto needle. +blood return. Pt tolerated well.
[2022-10-01 15:10] LABS: Troponin I < 0.012 ng/mL (0.01-0.034)
--- NOTE | 2022-10-01 19:18 | PC.NURSE ---
Patient had near syncopal episode when having pain doing exercises at PT.
[2022-10-01 19:21] VITALS: BP 122/57; PULSE 80; RESP 17; O2SAT 96
--- NOTE | 2022-10-01 20:14 | ED_ITS ---
HPI - Syncope General Chief Complaint: Syncope Stated Complaint: almost passed out at PT in [place] Time Seen by Provider: 10/01/22 20:02 Source: patient Mode of arrival: Ambulatory Limitations: no limitations History of Present Illness HPI narrative: Patient brought in by ambulance from physical therapy for near syncopal episode. Blood sugar 103. Orthostatics were normal by EMS prior to arrival. Patient had her 2nd physical therapy for bilateral wrist fractures. For session last week was for measurements only today was actually range of motion causing severe pain and patient was sweating. was coaching patient with breathing exercises when patient states was dizzy sweaty tunnel vision they later down and blood pressure was 96 systolic. Patient never passed out. Never had chest pain palpitations headache abdominal pain back pain or chest pain with this episode. Patient at baseline now. Likely not pulmonary embolism as no chest pain or dyspnea. Patient feels much better by time of arrival. No new medications. Patient ate breakfast this morning. No recent illness. No black or bloody stools or nausea vomiting or diarrhea. Related Data Home Medications Medication Instructions Recorded Confirmed fluoxetine 40 mg capsule (Prozac) 40 mg PO QDAY ##0 09/27/16 08/30/22 multivitamin (Multiple Vitamins 1 tab PO QDAY ##0 09/27/16 08/30/22 tablet) letrozole 2.5 mg tablet 2.5 mg PO DAILY 07/18/19 08/30/22 meclizine 25 mg tablet 25 mg PO PRN PRN Vertigo 07/18/19 08/29/22 cetirizine 10 mg capsule (Zyrtec) 10 mg PO DAILY 12/06/20 08/30/22 levothyroxine 150 mcg tablet 137 mcg PO DAILY 12/06/20 08/30/22 (Synthroid) pantoprazole 20 mg tablet,delayed 20 mg PO DAILY 12/06/20 08/30/22 release (Protonix) albuterol sulfate 90 mcg/actuation 2 puff inhalation QID PRN 08/30/22 08/30/22 aerosol inhaler Shortness Of Breath amlodipine 5 mg tablet 5 mg PO DAILY 08/30/22 08/30/22 budesonide-formoterol HFA 160 2 puff inhalation BID 08/30/22 08/30/22 mcg-4.5 mcg/actuation aerosol inhaler cholecalciferol (vitamin D3) 125 250 mcg PO DAILY 08/30/22 08/30/22 mcg (5,000 unit) tablet (Vitamin D3) Previous Rx's Medication Instructions Recorded hydrocodone 5 mg-acetaminophen 325 1 tab PO Q6H PRN pain #20 tabs 08/24/22 mg tablet hydroxyzine pamoate 25 mg capsule 25 mg PO QID PRN spasms #20 caps 08/24/22 (Vistaril) Allergies Allergy/AdvReac Type Severity Reaction Status Date / Time dextromethorphan Allergy Severe Hives Verified 10/01/22 13:31 gabapentin Allergy Severe suicidal Verified 10/01/22 13:31 nickel Allergy Severe sores Verified 10/01/22 13:31 adhesive Allergy Unknown blisters Verified 10/01/22 13:31 aspirin Allergy Unknown asthma as Verified 10/01/22 13:31 a child chlorpheniramine Allergy Unknown Rash Verified 10/01/22 13:31 codeine Allergy Unknown Rash Verified 10/01/22 13:31 guaifenesin Allergy Unknown Rash Verified 10/01/22 13:31 hydromorphone Allergy Unknown Chest Pain Verified 10/01/22 13:31 iodine Allergy Unknown Rash Verified 10/01/22 13:31 latex Allergy Unknown Rash Verified 10/01/22 13:31 montelukast Allergy Unknown joint Verified 10/01/22 13:31 swelling peanut Allergy Unknown mouth Verified 10/01/22 13:31 swelling pecan nut [PECAN NUT] Allergy Unknown mouth Verified 10/01/22 13:31 swelling pseudoephedrine Allergy Unknown asthma Verified 10/01/22 13:31 symptoms shellfish derived Allergy Unknown Anaphylaxis Verified 10/01/22 13:31 [SHELLFISH DERIVED] Sulfa (Sulfonamide Allergy Unknown Rash Verified 10/01/22 13:31 Antibiotics) walnut [WALNUT] Allergy Unknown mouth Verified 10/01/22 13:31 swelling Review of Systems Review of Systems Narrative: GENERAL: negative chills, fatigue, malaise, fever, positive sweats. HEENT: negative sinus pain, ear pain, sore throat RESPIRATORY: negative dyspnea, cough CARDIOVASCULAR: negative chest pain, palpitations, positive syncope GASTROINTESTINAL: negative nausea, vomiting, abdominal pain : negative dysuria, frequency, hematuria MUSCULOSKELETAL: negative muscle or bony pain SKIN: negative rash, skin lesions NEUROLOGIC: negative weakness, numbness, positive dizziness, negative headache, negative slurred speech ROS Unobtainable: All systems reviewed & are unremarkable except as noted in HPI and below Patient History Medical History Acute idiopathic pericarditis Anxiety Asthma Carcinoma of left lung Cough Epistaxis Gastritis History of malignant neoplasm of both breasts Hyperglycemia Hyperlipidemia Hyperthyroidism Injury of nasal sinus Insomnia Invasive ductal carcinoma of left breast in female Migraine Port-A-Cath in place Radiation-induced esophagitis Vertigo Surgical History H/O bilateral mastectomy History of right knee joint replacement Hx of cholecystectomy Hx of lymph node excision Family History Mother Early onset Alzheimer's dementia Brother Early onset Alzheimer's dementia Father Myocardial infarct CVA (cerebral vascular accident) Brother Asthma Sister Nasopharyngeal cancer Social History household members: spouse Smoking Status: Never smoker alcohol intake: never Smoking Status: Never smoker alcohol intake frequency: holidays/special occasions only Substance Use Type: does not use Exam Narrative Exam Narrative: GENERAL: in no distress, not toxic not dyspneic HEAD: Normocephalic. EYES: Pupils equal round No scleral icterus. NECK: Trachea midline. CARDIOVASCULAR: Regular rate and rhythm without murmurs RESPIRATORY: Clear to auscultation. Breath sounds equal bilaterally. No wheezes, rales, or rhonchi. GASTROINTESTINAL: Abdomen soft, non-tender EXTREMITIES: No gross deformities. BACK: No flank tenderness. NEURO: AOx4. Clear speech light touch intact to bilateral face and hands. Braces are on each wrist. SKIN: Warm and dry PSYCH: Not anxious, is cooperative Initial Vital Signs Initial Vital Signs: Vital Signs Temperature 97.6 F 10/01/22 13:31 Pulse Rate 73 10/01/22 13:31 Respiratory Rate 15 10/01/22 13:31 Blood Pressure 140/68 10/01/22 13:31 Pulse Oximetry 96 10/01/22 13:31 Oxygen Delivery Method 10/01/22 13:31 Course Course Course Narrative: No new issues during course of stay Orders Ordered: Discontinued Medications Heparin Sodium (Porcine) (Heparin Flush (Cl/Picc/Mid-Line) 50 Unit/5 Ml Syringe) 50 unit IV NOW ONE Stop: 10/01/22 20:27 Reevaluation(s) Reevaluation #1: Reviewed results with patient. They are reassuring. Exam is reassuring. Explained to patient likely vasovagal episode given pain setting can cause vagal response. They understood. Return precautions reviewed with them. They desire discharge home. Time: 20:21 Vital Signs Vital signs: Vital Signs - 8 hr 10/01/22 13:31 10/01/22 15:05 10/01/22 19:21 Temperature 97.6 F Pulse Rate 73 74 80 Respiratory Rate 15 17 Blood Pressure 140/68 111/54 L 122/57 L Pulse Oximetry 96 96 96 Oxygen Delivery Method Room Air Room Air Room Air MDM - Syncope Differential Diagnosis Differential diagnosis: Likely syncope due to orthostatic hypotension, vasovagal syncope, complete atrioventricular block, subarachnoid hemorrhage, pulmonary embolism and dehydration Lab Data Result diagrams: 10/01/22 14:40 10/01/22 14:40 Labs: Lab Results 10/01/22 10/01/22 10/01/22 Range/Units 14:40 14:40 14:40 WBC 7.4 (4.5-11.0) X10^3/uL RBC 4.55 (4.0-5.2) X10^6/uL Hgb 12.7 (12.0-16.0) g/dL Hct 38.3 (36-46) % MCV 84.3 (80-100) fL MCH 28.0 (26-34) PG MCHC 33.2 (30-36) % RDW 15.6 H (11.6-14.8) % Plt Count 271 (150-400) X10^3/uL Neut % (Auto) 67.8 (50-75) % Lymph % (Auto) 22.7 L (25-40) % [place] % (Auto) 7.8 (3-14) % Eos % (Auto) 1.1 L (2-4) % Baso % (Auto) 0.6 (0-2) % Neut # (Auto) 5000 (0197-6406) /uL Lymph # (Auto) 1700 (9239-7207) /uL [place] # (Auto) 600 (0-900) /uL Eos # (Auto) 100 (0-450) /uL Baso # (Auto) 0 (0-100) /uL PT 10.9 (10.1-12.7) SECONDS INR 1.0 (0.9-1.3) APTT 31 (26-36) SECONDS Sodium 136 L (137-145) mmol/L Potassium 4.1 (3.4-5.1) mmol/L Chloride 102 (98-107) mmol/L Carbon Dioxide 24 (22-32) mmol/L BUN 13 (7-17) mg/dL Creatinine 0.69 (0.52-1.04) mg/dL Estimated GFR > 60 (>60) mL/min BUN/Creatinine Ratio 18.8 (6-22) Glucose 107 (80-110) mg/dL Calcium 9.5 (8.4-10.2) mg/dL Magnesium 2.0 (1.6-2.3) mg/dL Total Bilirubin 0.3 (0.2-1.3) mg/dL AST 33 (14-36) IU/L ALT 35 H (<35) IU/L Alkaline Phosphatase 136 H (38-126) U/L Total Creatine Kinase 69 (30-135) U/L CK-MB (CK-2) TNP CK-MB (CK-2) Rel Index TNP Troponin I < 0.012 (0.01-0.034) ng/mL Total Protein 7.3 (6.3-8.2) g/dL Albumin 4.3 (3.5-5.0) g/dL Globulin 3.0 (1.7-4.1) g/dL Albumin/Globulin Ratio 1.4 (1.0-2.8) Lipase 56 (23-300) U/L Imaging Data Chest x-ray: Radiologist's Impression: [address] [id number] ReportSigned Patient: Yennifer Boo IMR#: [id number]: 9Acct:[id number]/Sex: 61 / FDate of Service: 10/01/22Loc: EDAccession Number: [id number] Procedure: XR chest 1V Ordering Provider: Nuris Barajas D.O. PROCEDURE: XR CHEST 1V INDICATIONS: chest pain TECHNIQUE: One view of the chest was acquired. COMPARISON: [facility], CT, CT CHEST ABDOMEN PELVIS WITH CONTRAST, 04/05/2022, 11:00. [facility], CR, XR CHEST 1V, 12/06/2020, 14:43. [facility], CR, CHEST 2 VIEW, 06/22/2016, 16:41. FINDINGS: Surgical changes and devices: Right-sided port with the catheter tip at the middle 3rd of the SVC. Left breast clips. Lungs and pleura: Lungs are clear. No pleural effusions or pneumothorax. Mediastinum: Mediastinal contours appear normal. Heart size appears prominent. Bones and chest wall: No suspicious bony lesions. Overlying soft tissues appear unremarkable. IMPRESSION: Lungs appear clear. Heart size appears prominent. Dictated by: Santy Rai M.D. on 10/01/2022 at 14:33 Approved by: Santy Rai M.D. on 10/01/2022 at 14:35 ECG Data Interpretation: Normal sinus rhythm rate [address] elevation or depression. MDM Narrative Medical decision making narrative: Appropriate for discharge home. Exam and laboratory studies are reassuring. Clinically likely vasovagal near-syncope. Patient had her 2nd again seconds physical therapy session today, 1st 1 was for measurements only. Today session cause a lot of pain with sweating and likely induced vasovagal response. at bedside was coaching patient for breathing exercises to help for the pain. Blood sugar was 103 by EMS orthostatics was done and patient was not or thostatic. Likely not PR or stroke. Discharge Plan Departure Patient Disposition: Home Clinical Impression: Vasovagal near syncope Activity Restrictions/Additional Instructions: See family doctor's week for re-evaluation. Be sure to inform your physical therapy providers to go slowly with your progress as your sensitive to pain and may pass out. Continue home medications. Return if worse for any questions or concerns Prescriptions: No Action meclizine 25 mg tablet 25 mg PO PRN PRN (Reason: Vertigo) letrozole 2.5 mg tablet 2.5 mg PO DAILY multivitamin [Multiple Vitamins] 1 EACH tablet 1 tab PO QDAY Qty: 0 fluoxetine [Prozac] 40 MG capsule 40 mg PO QDAY Qty: 0 pantoprazole [Protonix] 20 mg Tablet,Delayed Release (Dr/Ec) 20 mg PO DAILY Zyrtec 10 mg Capsule 10 mg PO DAILY levothyroxine [Synthroid] 150 mcg Tablet 137 mcg PO DAILY albuterol sulfate 90 mcg/actuation Hfa Aerosol Inhaler 2 puff INHALATION QID PRN (Reason: Shortness Of Breath) budesonide-formoterol 160-4.5 mcg/actuation HFA aerosol inhaler 2 puff INHALATION BID cholecalciferol (vitamin D3) [Vitamin D3] 125 mcg (5,000 unit) Tablet 250 mcg PO DAILY amlodipine 5 mg tablet 5 mg PO DAILY hydroxyzine pamoate [Vistaril] 25 mg capsule 25 mg PO QID PRN (Reason: spasms) Qty: 20 0RF hydrocodone-acetaminophen 5-325 mg tablet 1 tab PO Q6H PRN (Reason: pain) Qty: 20 0RF Referrals: Lázaro Mccall DO [Primary Care Provider] - Visit Report Forms: Patient Portal/API
== END 2022-10-01 20:36 | disposition home or self-care (01) ==
PROVIDERS: Emergency Medicine; Emergency Provider Emergency Medicine; PCP Family Medicine
DX: R55 Syncope and collapse (principal)
CPT/HCPCS: 36415; 71045; 80053; 82550; 83690; 83735; 84484; 85025; 85610; 85730; 93005; 93010; 99283; 99284

== ENCOUNTER 2023-08-12 11:45 | Outpatient (RCR) | payer OTHER, SELFPAY ==
[2020-12-06 18:29] VITALS: BMI 33.6
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
--- NOTE | 2023-05-19 13:26 | ST.OPPOC ---
Addendum entered and electronically signed by Tete Delgadillo 05/19/23 13:26: Referring Provider: Moises Mcmanus DO Original Note: Physical, Occupational & Speech Therapy At [facility] Visit Care Team Role Provider Type Moises Mcmanus DO Attending Provider Non-Staff Family Provider Primary Care Provider Referring Provider Address: [address] [place] [address], [id number] Speech Pathology Plan of Care Plan of Care Dates 05/19/23-08/19/[address] Fazal Veras Patient History Pt is presenting today for a voice/resonance evaluation due to ongoing concerns for hoarse vocal quality and laryngospasms. Pt was initially seen at this clinic in July 2022 for a voice evaluation with Paula Centeno , Ph.D, [facility] REFEREE at the referral of Dr. Veras, ENT. According to the pt, she has a complicated medical history that includes bilateral mastectomy for breast cancer, lung cancer, asthma, right side lymph glands removal, GERD, a hiatal hernia and 30+ radiation treatments to the upper left chest near her sternum. Relative to the laryngospasm, the pt reported upon her initial evaluation (Jul 2022) that they typically occur when she drinks a liquid or swallows her saliva and if she eats a food that is crumbly, like a cookie or cracker. When this happens, she can cough hard for an extended time . Her will calm her with deep breathing. Dr. Veras performed an endoscopic examination prior to July evaluation at this clinic, and reported that the left vocal fold was erythmatic with an uneven edge, possibly related to pt's most recent coughing attack/ laryngospasm one month before intial evaluation. Following TRAFF[facility] REFEREE evaluation in July, it was recommended that the pt be seen for a stroboscopy with [facility], as well as complete a Modified Barium Swallow Study to assess swallow safety and risk for aspiration. At present evaluation, pt reports that she had stroboscopy completed in [place]. No physiological cause of voice concerns was observed (no nodes, polyps, etc), and pt states that the ENT did not report muscle tension. This evaluating TRAFFIC [facility] REFEREE will request stroboscopy records for further assessment. Pt states she has not yet had MBSS completed. She endorses previously stated diagnoses and also reports pulmonary difficulties/asthma which were exacerbated by treatment with Keytruda ( pembrolizumab) for cancer. According to the pt, her pulmonary function was impacted by the pembrolizumab such that her alveoli most distal from the larynx do not fully inflate. She states that she has not had many spasms/coughing attacks lately and that the latest one took place about two months ago. She states that her vocal quality becomes more hoarse after these spasms/coughing fits. The pt again stated that these coughing fits usually happen when drinking water, but also may be triggered by laughing or environmental irritants. Voice/Resonance Findings Mild-Moderate Impairment Voice/Resonance Assessment EVALUATION RESULTS/RECOMMENDATIONS: Pt presents with mild-moderate voice-resonance disorder of uncertain etiology characterized by harsh/hoarse vocal quality and reduced phonatory sufficiency . As previously noted, the pt's medical history includes breast cancer, lung cancer, asthma, right side lymph glands removal, GERD, a hiatal hernia and 30+ radiation treatments to the upper left chest near her sternum, all of which may contribute to her vocal symptoms. Based on pt presentation and medical history, the following are recommended: 1. TRAFF[address] REFEREE to request copy of stroboscopy report from Dr. House to inform treatment plan. 2. Recommend referring provider request MBSS for evaluation of swallow. 3. Recommend voice therapy every 1-2 weeks to instruct in exercises to reduce vocal tension and increase breath support and monitor progress . Voice/Resonance Prognosis Good Voice/Resonance Yes Recommendations Voice/Resonance Treatment weekly Frequency Therapy Recommendations Interventions targeting muscle tension, breath support, and shifting resonance Short Term Goals 1. Pt will increase sustained phonation time to an average of 10s given instruction and exercises for breath support. 2. Pt will be instructed in and demonstrate accurate completion of resonance shifting exercises in 80% of opportunities independently in order to accurately complete HEP. 3. Pt will complete MBSS assessment to determine swallow function. Care Home Goals Pt will reduce overall score on Voice Handicap Index by at least 5 points (from 16 to 11) in order to decrease functional impact of voice/ resonance disorder on quality of life. Comment: Electronically Signed by: WILLY Delgadillo 05/19/23 1752 If you are in agreement with this Plan of Care, please return a signed and dated copy. I have reviewed this Plan of Care and certify that the skilled therapy services above are required to meet the patient?s needs. Physician Signature Date Printed Name and Credentials Clinical Instructor Signature Printed Name and Credentials
--- NOTE | 2023-05-19 13:29 | ST-OP ANOTE ---
Physical, Occupational & Speech Therapy At [facility] Speech Therapy Note SNOW REMOVER (Kay Newell) wrote initial POC this date and sent via fax to referring provider, Dr. Moises Mcmanus, requesting signature at 13:28.
--- NOTE | 2023-05-22 10:17 | ST-OP ANOTE ---
Physical, Occupational & Speech Therapy At [facility] Speech Therapy Note Dr. House and team, I am writing to request the records from the stroboscopy procedure completed at your office for our shared patient, Yennifer Boo ( 1960). I am working on vocal rehabilitation with Mrs. Boo, and would love to have your report in order to inform her plan of care. Please fax these records to [facility] at [phone], attn: Kay Newell, WILLY. Kind regards, Kay Newell M.S., [facility]-LOGISTICS SOLUTION MANAGER
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
--- NOTE | 2023-07-22 11:25 | ST.OPTN ---
Visit Care Team Role Provider Type Moises Mcmanus DO Attending Provider Non-Staff Family Provider Primary Care Provider Referring Provider Address: [address] [place] [address], [id number] METAL FITTER Treatment Note METAL FITTER Treatment Note Start: 06/09/23 12:43 Freq: Status: Active Protocol: Document 07/22/23 11:15 CG (Rec: 07/22/23 11:25 CG [id number]) Speech Pathology Treatment Note Session Time Visit Start Time 10:30 Visit Stop Time 11:15 Total Visit Minutes 45 Visit Information Visit Number 4 Plan of Care Dates 05/19/23-08/19/23 Next Note Type Next Note Type Treatment Note General Information Patient History Pt is presenting today for a voice/resonance evaluation due to ongoing concerns for hoarse vocal quality and laryngospasms. Pt was initially seen at this clinic in July 2022 for a voice evaluation with Paula Zamudio, Ph.D, [facility]-METAL FITTER at the referral of Dr. Veras, ENT. According to the pt, she has a complicated medical history that includes bilateral mastectomy for breast cancer, lung cancer, asthma, right side lymph glands removal, GERD, a hiatal hernia and 30+ radiation treatments to the upper left chest near her sternum. Relative to the laryngospasm, the pt reported upon her initial evaluation ( Jul 2022) that they typically occur when she drinks a liquid or swallows her saliva and if she eats a food that is crumbly, like a cookie or cracker. When this happens, she can cough hard for an extended time. Her will calm her with deep breathing. Dr. Veras performed an endoscopic examination prior to July evaluation at this clinic, and reported that the left vocal fold was erythmatic with an uneven edge, possibly related to pt's most recent coughing attack/laryngospasm one month before intial evaluation. Following METAL FITTER evaluation in July, it was recommended that the pt be seen for a stroboscopy with [facility], as well as complete a Modified Barium Swallow Study to assess swallow safety and risk for aspiration. At present evaluation, pt reports that she had stroboscopy completed in [place]. No physiological cause of voice concerns was observed (no nodes, polyps, etc), and pt states that the ENT did not report muscle tension. This evaluating METAL FITTER will request stroboscopy records for further assessment . Pt states she has not yet had MBSS completed. She endorses previously stated diagnoses and also reports pulmonary difficulties/asthma which were exacerbated by treatment with Keytruda ( pembrolizumab) for cancer. According to the pt, her pulmonary function was impacted by the pembrolizumab such that her alveoli most distal from the larynx do not fully inflate. She states that she has not had many spasms/ coughing attacks lately and that the latest one took place about two months ago. She states that her vocal quality becomes more hoarse after these spasms/coughing fits. The pt again stated that these coughing fits usually happen when drinking water, but also may be triggered by laughing or environmental irritants. Subjective Identification Type Name Others Present Family Observations/Patient Presentation Pt arrived on time to her appointment with her , who attended the session. She recently recovered from a bout of Covid, and is still experiencing lingering fatigue , cough, and shortness of breath. Chief Complaint(s) Voice Patient Knowledge/Awareness of METAL FITTER Role Good in Treatment Objective Short Term Goals 1. Pt will increase sustained phonation time to an average of 10s given instruction and exercises for breath support. 2. Pt will be instructed in and demonstrate accurate completion of resonance shifting exercises in 80% of opportunities independently in order to accurately complete HEP. 3. Pt will complete MBSS assessment to assess swallow function. Metal Polisher And Buffer Apprentice Goals Pt will reduce overall score on Voice Handicap Index by at least 5 points (from 16 to 11) in order to decrease functional impact of voice/ resonance disorder on quality of life. Treatment Activities Reviewed progress with home exercises and discussed current health status after ongoing respiratory issues. Completed respiratory control exercises with exhale on /s/, exhale through pursed lips, and exhale on phonation. Completed resonance shifting exercises at the syllable level and began working towards sentence level, with METAL FITTER feedback to reduce hard glottal attack during reading. Trialed semi occluded vocal tract exercises and discussed benefits. Assessment Patient Response to Treatment Good Rehab Potential Good Impairments Identified Voice Progress Towards Goals Good Progress Assessment of Improvement Yennifer has had to put majority of respiratory exercises on pause over the last month after she was experiencing respiratory insufficiency leading to her being on supplemental oxygen, exacerbated by a bout of Covid . She also discontinued some cervical stretches as she currently has a neck injury and is waiting for doctor guidance. She just finished up a round of prednisone to treat her asthma and is going to be trialing a new asthma medicine soon, after she is tested for allergies to ingredients. Yennifer was able to complete 5: 10s inhale/exhale again today with approximately 90% accuracy today given METAL FITTER cues to focus on using diaphragm right behind your belly button to control release of exhale . For exhale on phonation, she was able to complete a 3 second inhale, 6 second phonation on /a/ (at about 190 -200Hz) in 100% of trials. She was able to complete 4s inhale and 8 second phonation in approximately 50% of trials today. METAL FITTER stated her goal should be to be able to do 5 trials of 8 second phonation next session. The pt states she still has not heard anything re MBS. METAL FITTER to call ENT (Dr. Veras) office today to follow up. Reviewed with Patient Home Exercise Program Patient/Caregiver Understanding Good Plan Amount of Therapy Recommended 2-3 Months Length of Session 45 Minutes Therapeutic Contents Voice Training Provided Patient/Caregiver Instruction Home Exercise Program, Questions/Concerns Suggested Referral ENT Other Referrals request MBS from ENT
--- NOTE | 2023-07-28 15:27 | ST.OPTN ---
Visit Care Team Role Provider Type Moises Mcmanus DO Attending Provider Non-Staff Family Provider Primary Care Provider Referring Provider Address: [address] [place] [address], [id number] MULE OPERATOR Treatment Note MULE OPERATOR Treatment Note Start: 06/09/23 12:43 Freq: Status: Active Protocol: Document 07/28/23 15:17 CG (Rec: 07/28/23 15:27 CG [id number]) Speech Pathology Treatment Note Session Time Visit Start Time 14:30 Visit Stop Time 15:12 Total Visit Minutes 42 Visit Information Visit Number 5 Plan of Care Dates 05/19/23-08/19/23 Next Note Type Next Note Type Treatment Note General Information Patient History Pt is presenting today for a voice/resonance evaluation due to ongoing concerns for hoarse vocal quality and laryngospasms. Pt was initially seen at this clinic in July 2022 for a voice evaluation with Paula Zamudio, Ph.D, [facility]-MULE OPERATOR at the referral of Dr. Veras, ENT. According to the pt, she has a complicated medical history that includes bilateral mastectomy for breast cancer, lung cancer, asthma, right side lymph glands removal, GERD, a hiatal hernia and 30+ radiation treatments to the upper left chest near her sternum. Relative to the laryngospasm, the pt reported upon her initial evaluation ( Jul 2022) that they typically occur when she drinks a liquid or swallows her saliva and if she eats a food that is crumbly, like a cookie or cracker. When this happens, she can cough hard for an extended time. Her will calm her with deep breathing. Dr. Veras performed an endoscopic examination prior to July evaluation at this clinic, and reported that the left vocal fold was erythmatic with an uneven edge, possibly related to pt's most recent coughing attack/laryngospasm one month before intial evaluation. Following MULE OPERATOR evaluation in July, it was recommended that the pt be seen for a stroboscopy with [facility] [facility], as well as complete a Modified Barium Swallow Study to assess swallow safety and risk for aspiration. At present evaluation, pt reports that she had stroboscopy completed in [place]. No physiological cause of voice concerns was observed (no nodes, polyps, etc), and pt states that the ENT did not report muscle tension. This evaluating MULE OPERATOR will request stroboscopy records for further assessment . Pt states she has not yet had MBSS completed. She endorses previously stated diagnoses and also reports pulmonary difficulties/asthma which were exacerbated by treatment with Keytruda ( pembrolizumab) for cancer. According to the pt, her pulmonary function was impacted by the pembrolizumab such that her alveoli most distal from the larynx do not fully inflate. She states that she has not had many spasms/ coughing attacks lately and that the latest one took place about two months ago. She states that her vocal quality becomes more hoarse after these spasms/coughing fits. The pt again stated that these coughing fits usually happen when drinking water, but also may be triggered by laughing or environmental irritants. Subjective Identification Type Name Others Present Family Observations/Patient Presentation Pt arrived on time to her appintment, which she attended independently. She stated she was on oxygen again until coming off of it last night. Chief Complaint(s) Voice Patient Knowledge/Awareness of MULE OPERATOR Role Good in Treatment Objective Short Term Goals 1. Pt will increase sustained phonation time to an average of 10s given instruction and exercises for breath support. 2. Pt will be instructed in and demonstrate accurate completion of resonance shifting exercises in 80% of opportunities independently in order to accurately complete HEP. 3. Pt will complete MBSS assessment to assess swallow function. Cultural Centre Manager Goals Pt will reduce overall score on Voice Handicap Index by at least 5 points (from 16 to 11) in order to decrease functional impact of voice/ resonance disorder on quality of life. Treatment Activities Completed respiratory control exercises with exhale on /s/ and exhale on phonation. Completed resonance shifting exercises at the syllable level before moving to sentence level. MULE OPERATOR provided cues for where to take breaths within sentence to maintain nautral syntax while also providing adequate breath support. Reviewed progress with home exercise program and discussed new homework goals (6s inhale, 12s sustained /a/ and reading through entire resonance sentence on single breath). Assessment Patient Response to Treatment Good Rehab Potential Good Impairments Identified Voice Progress Towards Goals Good Progress Assessment of Improvement Yennifer stated she was able to complete exercises on 6/7 days this past week. She also has gently resumed cervical stretches. Yennifer was able to complete inhale/exhale on /s/ for a ratio of 7s inhale to 14s exhale in 100% of trials. She was able to produce inhale/ exhale on /s/ with 8s:16s ratio in 50% of trials completed. For exhale on phonation, she was able to complete a 3 second inhale, 6 second phonation on /a/ (at about 190-200Hz) in 100% of trials. She was able to complete 5 second inhale, 10 second phonation on /a/ in 5 of 6 trials (83%) which is a significant improvement from last session. She was also able to complete 6s inhale, 12 second phonation in 2 of 4 trials. Her new homework goal will be to complete 6s inhale , 12 second phonation in 75% of trials. Pt is unable to get through entire resonant sentence on one breath while maintaining resonant voice at this time; however, this is a goal for homework this week. She was able to accurately complete resonance shifting exercises at the syllable level with 100 % accuracy independently today . MULE OPERATOR sent fax to Dr. Rito gonzalez MBS this morning. Reviewed with Patient Home Exercise Program Patient/Caregiver Understanding Good Plan Amount of Therapy Recommended 2-3 Months Length of Session 45 Minutes Therapeutic Contents Voice Training Provided Patient/Caregiver Instruction Home Exercise Program, Questions/Concerns Other Referrals request MBS from ENT
--- NOTE | 2023-08-12 13:17 | ST.OPTN ---
Visit Care Team Role Provider Type Moises Mcmanus DO Attending Provider Non-Staff Family Provider Primary Care Provider Referring Provider Address: [address] [place] [address], [id number] STRATEGY INTERN Treatment Note STRATEGY INTERN Treatment Note Start: 06/09/23 12:43 Freq: Status: Active Protocol: Document 08/12/23 12:39 CG (Rec: 08/12/23 13:17 CG [id number]) Speech Pathology Treatment Note Session Time Visit Start Time 11:45 Visit Stop Time 12:30 Total Visit Minutes 45 Visit Information Visit Number 6 Plan of Care Dates 05/19/23-08/19/23 Next Note Type Next Note Type Treatment Note General Information Patient History Pt is presenting today for a voice/resonance evaluation due to ongoing concerns for hoarse vocal quality and laryngospasms. Pt was initially seen at this clinic in July 2022 for a voice evaluation with Paula Zamudio, Ph.D, [facility] at the referral of Dr. Veras, ENT. According to the pt, she has a complicated medical history that includes bilateral mastectomy for breast cancer, lung cancer, asthma, right side lymph glands removal, GERD, a hiatal hernia and 30+ radiation treatments to the upper left chest near her sternum. Relative to the laryngospasm, the pt reported upon her initial evaluation ( Jul 2022) that they typically occur when she drinks a liquid or swallows her saliva and if she eats a food that is crumbly, like a cookie or cracker. When this happens, she can cough hard for an extended time. Her will calm her with deep breathing. Dr. Veras performed an endoscopic examination prior to July evaluation at this clinic, and reported that the left vocal fold was erythmatic with an uneven edge, possibly related to pt's most recent coughing attack/laryngospasm one month before intial evaluation. Following STRATEGY INTERN evaluation in July, it was recommended that the pt be seen for a stroboscopy with [facility], as well as complete a Modified Barium Swallow Study to assess swallow safety and risk for aspiration. At present evaluation, pt reports that she had stroboscopy completed in [place]. No physiological cause of voice concerns was observed (no nodes, polyps, etc), and pt states that the ENT did not report muscle tension. This evaluating STRATEGY INTERN will request stroboscopy records for further assessment . Pt states she has not yet had MBSS completed. She endorses previously stated diagnoses and also reports pulmonary difficulties/asthma which were exacerbated by treatment with Keytruda ( pembrolizumab) for cancer. According to the pt, her pulmonary function was impacted by the pembrolizumab such that her alveoli most distal from the larynx do not fully inflate. She states that she has not had many spasms/ coughing attacks lately and that the latest one took place about two months ago. She states that her vocal quality becomes more hoarse after these spasms/coughing fits. The pt again stated that these coughing fits usually happen when drinking water, but also may be triggered by laughing or environmental irritants. Subjective Identification Type Name Others Present Family Observations/Patient Presentation Pt arrived on time to her appintment, which she attended independently. She stated she had recently had a flare- up of GERD, which caused increased hoarseness. Chief Complaint(s) Voice Patient Knowledge/Awareness of STRATEGY INTERN Role Good in Treatment Objective Short Term Goals 1. Pt will increase sustained phonation time to an average of 10s given instruction and exercises for breath support. 2. Pt will be instructed in and demonstrate accurate completion of resonance shifting exercises in 80% of opportunities independently in order to accurately complete HEP. 3. Pt will complete MBSS assessment to assess swallow function. Long-Term Goals Pt will reduce overall score on Voice Handicap Index by at least 5 points (from 16 to 11) in order to decrease functional impact of voice/ resonance disorder on quality of life. Treatment Activities Completed respiratory control exercises with exhale on /s/ and exhale on phonation. Completed resonance shifting exercises at the sentence level with added Confidential Voice technique to reduce tension. Reviewed progress with home exercise program and discussed new homework goals (reduce back to 5s inhale, 10s sustained /a/ and increase /s / inhale/exhale to 8s inhale, 16s exhale on /s/). Discussed progress and POC moving forward. STRATEGY INTERN to update POC this date. Assessment Patient Response to Treatment Good Rehab Potential Good Impairments Identified Voice Progress Towards Goals Good Progress Assessment of Improvement Yennifer was able to complete inhale/exhale on /s/ for a ratio of 7s inhale to 14s exhale in 100% of trials, and even increased to 8s/16s ratio this session. Goal for home exercises is to produce 8s/16s /s/ with 100% accuracy. For exhale on phonation, she was able to complete a 5 second inhale, 10 second phonation on /a/ (at about 190-200Hz) in 30% of trials. This decrease may be due to laryngeal irritation from recent GERD episode. Yennifer reported that after completing resonant voice sentences, she felt her voice was hoarse and sore. Trialed confidential voice/adding breathiness to voice during these exercises to reduce hyperadduction with the assumption that hyperadduction /excessive tension may be contributing to hoarseness. Also discussed speaking higher within vocal register, as the pt tends to speak at the low end of her register, which causes vocal smith she describes as frogginess. Pt reported that Dr. Veras is unable to order MBS, so her PCP (Dr. Moises Mcmanus at the [facility]) will need to order. STRATEGY INTERN to send fax today in addition to updated POC for signature. Reviewed with Patient Progress Being Made,Home Exercise Program Patient/Caregiver Understanding Good Plan Amount of Therapy Recommended 3-4 Months Comment every 3-4 weeks Length of Session 45 Minutes Therapeutic Contents Voice Training Provided Patient/Caregiver Instruction Home Exercise Program, Questions/Concerns Other Referrals request MBS from PCP
--- NOTE | 2023-08-12 13:27 | ST.OPPOC ---
Addendum entered and electronically signed by Tete Delgadillo 08/12/23 16:43: Amendment: Frequency should read as every 3-4 weeks. Original Note: Physical, Occupational & Speech Therapy At [facility] Visit Care Team Role Provider Type Moises Mcmanus DO Attending Provider Non-Staff Family Provider Primary Care Provider Referring Provider Address: [address] [place] [address], [id number] Speech Pathology Plan of Care Plan of Care Dates 08/12/23-11/12/[address] Fazal Veras Patient History Pt is presenting today for a voice/resonance evaluation due to ongoing concerns for hoarse vocal quality and laryngospasms. Pt was initially seen at this clinic in July 2022 for a voice evaluation with Paula Centeno , Ph.D, [facility] at the referral of Dr. Veras, ENT. According to the pt, she has a complicated medical history that includes bilateral mastectomy for breast cancer, lung cancer, asthma, right side lymph glands removal, GERD, a hiatal hernia and 30+ radiation treatments to the upper left chest near her sternum. Relative to the laryngospasm, the pt reported upon her initial evaluation (Jul 2022) that they typically occur when she drinks a liquid or swallows her saliva and if she eats a food that is crumbly, like a cookie or cracker. When this happens, she can cough hard for an extended time . Her will calm her with deep breathing. Dr. Veras performed an endoscopic examination prior to July evaluation at this clinic, and reported that the left vocal fold was erythmatic with an uneven edge, possibly related to pt's most recent coughing attack/ laryngospasm one month before intial evaluation. Following [facility] evaluation in July, it was recommended that the pt be seen for a stroboscopy with [facility], as well as complete a Modified Barium Swallow Study to assess swallow safety and risk for aspiration. At present evaluation, pt reports that she had stroboscopy completed in [place]. No physiological cause of voice concerns was observed (no nodes, polyps, etc), and pt states that the ENT did not report muscle tension. This evaluating GRAIN DRIER will request stroboscopy records for further assessment. Pt states she has not yet had MBSS completed. She endorses previously stated diagnoses and also reports pulmonary difficulties/asthma which were exacerbated by treatment with Keytruda ( pembrolizumab) for cancer. According to the pt, her pulmonary function was impacted by the pembrolizumab such that her alveoli most distal from the larynx do not fully inflate. She states that she has not had many spasms/coughing attacks lately and that the latest one took place about two months ago. She states that her vocal quality becomes more hoarse after these spasms/coughing fits. The pt again stated that these coughing fits usually happen when drinking water, but also may be triggered by laughing or environmental irritants. Update 08/12/23: Pt has completed three months of voice therapy, resulting in improvements in respiratory sufficiency for vocalization as well as demonstration of accurate use of resonant voice. However, pt continues to c/o laryngeal tension and continues to have questions/concerns re home exercise program as well as obtaining referral for MBS. Updating POC this date to see pt every 3 weeks to monitor progress with home exercise program and progress with MBS referral. Impairments Identified Voice Progress Towards Goals Good Progress Voice/Resonance Findings Mild-Moderate Impairment Voice/Resonance Assessment EVALUATION RESULTS/RECOMMENDATIONS: Pt presents with mild-moderate voice-resonance disorder of uncertain etiology characterized by harsh/hoarse vocal quality and reduced phonatory sufficiency . As previously noted, the pt's medical history includes breast cancer, lung cancer, asthma, right side lymph glands removal, GERD, a hiatal hernia and 30+ radiation treatments to the upper left chest near her sternum, all of which may contribute to her vocal symptoms. Based on pt presentation and medical history, the following are recommended: 1. GRAIN DRIER to request copy of stroboscopy report from Dr. House to inform treatment plan. 2. Recommend referring provider request MBSS for evaluation of swallow. 3. Recommend voice therapy every 1-2 weeks to instruct in exercises to reduce vocal tension and increase breath support and monitor progress . Voice/Resonance Prognosis Good Voice/Resonance Yes Recommendations Voice/Resonance Treatment weekly Frequency Therapy Recommendations Interventions targeting muscle tension, breath support, and shifting resonance Short Term Goals 1. Pt will increase sustained phonation time to an average of 10s given instruction and exercises for breath support. 2. Pt will be instructed in and demonstrate accurate completion of resonance shifting exercises in 80% of opportunities independently in order to accurately complete HEP. 3. Pt will complete MBSS assessment to determine swallow function. Short Term Goals 1. Pt will increase sustained phonation time to an average of 10s given instruction and exercises for breath support. 2. Pt will be instructed in and demonstrate accurate completion of confidential voice exercises (to decrease hyperadduction/laryngeal tension) in 80% of opportunities independently in order to accurately complete HEP. 3. Pt will complete MBSS assessment to assess swallow function. 4. Pt will complete inhale/exhale on /s/ exercise with ratio of 8s inhale and 16s exhale on /s/. Car Oiler Goals Pt will reduce overall score on Voice Handicap Index by at least 5 points (from 16 to 11) in order to decrease functional impact of voice/ resonance disorder on quality of life. Comment: Electronically Signed by: WILLY Delgadillo 08/12/23 3310 If you are in agreement with this Plan of Care, please return a signed and dated copy. I have reviewed this Plan of Care and certify that the skilled therapy services above are required to meet the patient?s needs. Physician Signature Date Printed Name and Credentials Clinical Instructor Signature Printed Name and Credentials
--- NOTE | 2024-03-09 09:53 | ST.OPDS ---
Visit Care Team Role Provider Type Moises Mcmanus DO Attending Provider Non-Staff Family Provider Primary Care Provider Referring Provider Address: [address] [place] [address], [id number] MORTGAGE LOAN CLOSER Discharge Summary MORTGAGE LOAN [employer]OSER Discharge Summary Start: 06/09/23 12:43 Freq: Status: Active Protocol: Document 03/09/24 09:47 CG (Rec: 03/09/24 09:53 CG [id number]) Speech Pathology Treatment Note Session Time Visit Start Time 11:45 Visit Stop Time 12:30 Total Visit Minutes 45 Visit Information Visit Number 6 Plan of Care Dates 08/12/23-11/12/23 Setting Treatment Setting Outpatient Care Next Note Type Next Note Type Discharge Summary General Information Patient History Pt is presenting today for a voice/resonance evaluation due to ongoing concerns for hoarse vocal quality and laryngospasms. Pt was initially seen at this clinic in July 2022 for a voice evaluation with Paula Zamudio, Ph.D, [facility]-MORTGAGE LOAN CLOSER at the referral of Dr. Veras, ENT. According to the pt, she has a complicated medical history that includes bilateral mastectomy for breast cancer, lung cancer, asthma, right side lymph glands removal, GERD, a hiatal hernia and 30+ radiation treatments to the upper left chest near her sternum. Relative to the laryngospasm, the pt reported upon her initial evaluation ( Jul 2022) that they typically occur when she drinks a liquid or swallows her saliva and if she eats a food that is crumbly, like a cookie or cracker. When this happens, she can cough hard for an extended time. Her will calm her with deep breathing. Dr. Veras performed an endoscopic examination prior to July evaluation at this clinic, and reported that the left vocal fold was erythmatic with an uneven edge, possibly related to pt's most recent coughing attack/laryngospasm one month before intial evaluation. Following MORTGAGE LOAN CLOSER evaluation in July, it was recommended that the pt be seen for a stroboscopy with [place] [facility], as well as complete a Modified Barium Swallow Study to assess swallow safety and risk for aspiration. At present evaluation, pt reports that she had stroboscopy completed in [place]. No physiological cause of voice concerns was observed (no nodes, polyps, etc), and pt states that the ENT did not report muscle tension. This evaluating MORTGAGE LOAN CLOSER will request stroboscopy records for further assessment . Pt states she has not yet had MBSS completed. She endorses previously stated diagnoses and also reports pulmonary difficulties/asthma which were exacerbated by treatment with Keytruda ( pembrolizumab) for cancer. According to the pt, her pulmonary function was impacted by the pembrolizumab such that her alveoli most distal from the larynx do not fully inflate. She states that she has not had many spasms/ coughing attacks lately and that the latest one took place about two months ago. She states that her vocal quality becomes more hoarse after these spasms/coughing fits. The pt again stated that these coughing fits usually happen when drinking water, but also may be triggered by laughing or environmental irritants. Update 08/12/23: Pt has completed three months of voice therapy, resulting in improvements in respiratory sufficiency for vocalization as well as demonstration of accurate use of resonant voice . However, pt continues to c/ o laryngeal tension and continues to have questions/ concerns re home exercise program as well as obtaining referral for MBS. Updating POC this date to see pt every 3 weeks to monitor progress with home exercise program and progress with MBS referral. Subjective Identification Type Name Others Present Family Chief Complaint(s) Voice Patient Knowledge/Awareness of MORTGAGE LOAN CLOSER Role Good in Treatment Objective Short Term Goals 1. Pt will increase sustained phonation time to an average of 10s given instruction and exercises for breath support. 2. Pt will be instructed in and demonstrate accurate completion of resonance shifting exercises in 80% of opportunities independently in order to accurately complete HEP. 3. Pt will complete MBSS assessment to determine swallow function. Long-Term Goals Pt will reduce overall score on Voice Handicap Index by at least 5 points (from 16 to 11) in order to decrease functional impact of voice/ resonance disorder on quality of life. Treatment Activities Throughout the course of treatment, tx activities included the following: Respiratory control exercises with exhale on /s/ and exhale on phonation; resonance shifting exercises at the sentence level with added Confidential Voice technique to reduce tension; development of and instruction in home exercise program; trials of semi occluded vocal tract exercises with MORTGAGE LOAN CLOSER education in SOVT benefits; use of yawn- sigh technique to increase resonant voice. Assessment Patient Response to Treatment Good Rehab Potential Good Impairments Identified Voice Progress Towards Goals Good Progress Assessment of Improvement As of last data collection, Yennifer was able to complete inhale/exhale on /s/ for a ratio of 7s inhale to 14s exhale in 100% of trials, and even increased to 8s/16s ratio this session. For exhale on phonation, she was able to complete a 5 second inhale, 10 second phonation on /a/ (at about 190-200Hz) in 30% of trials as of last data collection. Pt had multiple respiratory complications throughout the course of treatment, which slowed tx and impacted her ability to complete HEP. Pt completed an MBSS on 2022 at this hospital. MBS indicated swallow function WFL . Pt did not follow up with outpatient voice therapy after last appointment on Aug 12, 2023. D/c pt account due to inactivity. Reviewed with Patient Progress Being Made,Home Exercise Program Patient/Caregiver Understanding Good Plan Amount of Therapy Recommended 3-4 Months Comment every 3-4 weeks Length of Session 45 Minutes Therapeutic Contents Voice Training Provided Patient/Caregiver Instruction Home Exercise Program, Questions/Concerns
== END 2024-03-09 15:09 | disposition home or self-care (01) ==
LOC: SP 11:45
PROVIDERS: Family Provider Student in an Organized Health Care Education/Training Program; PCP Student in an Organized Health Care Education/Training Program; Referring Provider Student in an Organized Health Care Education/Training Program; Visit Provider Student in an Organized Health Care Education/Training Program
DX: R49.8 Other voice and resonance disorders (principal)
CPT/HCPCS: 92507; 92524

== ENCOUNTER 2023-08-21 20:06 | Emergency (ER) | payer OTHER, SELFPAY ==
[2020-12-06 18:29] VITALS: BMI 33.6
[2023-08-21] VITALS (10 sets, daily range): BP systolic 125–166; BP diastolic 63–75; PULSE 64–82; RESP 18; TEMP 36.6–37; O2SAT 93–96; BMI 35.2
--- NOTE | 2023-08-21 20:37 | ED.GENADULT ---
HPI - General Adult General Chief complaint: Abdominal Pain Stated complaint: diverticulitis pain Time Seen by Provider: 08/21/23 20:24 Source: patient Mode of arrival: Ambulatory History of Present Illness HPI narrative: Patient is a 62-year-old female. She states she has a history of diverticulosis but has never been diagnosed with diverticulitis. Earlier this morning she started have left-sided abdominal pain. Some nausea. No vomiting. No fevers. No urinary symptoms. She has had multiple nonbloody bowel movements today. Related Data Home Medications Medication Instructions Recorded Confirmed fluoxetine 40 mg capsule (Prozac) 40 mg PO QDAY ##0 09/27/16 08/30/22 multivitamin (Multiple Vitamins 1 tab PO QDAY ##0 09/27/16 08/30/22 tablet) letrozole 2.5 mg tablet 2.5 mg PO DAILY 07/18/19 08/30/22 meclizine 25 mg tablet 25 mg PO PRN PRN Vertigo 07/18/19 08/29/22 cetirizine 10 mg capsule (Zyrtec) 10 mg PO DAILY 12/06/20 08/30/22 levothyroxine 150 mcg tablet 137 mcg PO DAILY 12/06/20 08/30/22 (Synthroid) pantoprazole 20 mg tablet,delayed 20 mg PO DAILY 12/06/20 08/30/22 release (Protonix) albuterol sulfate 90 mcg/actuation 2 puff inhalation QID PRN 08/30/22 08/30/22 aerosol inhaler Shortness Of Breath amlodipine 5 mg tablet 5 mg PO DAILY 08/30/22 08/30/22 budesonide-formoterol HFA 160 2 puff inhalation BID 08/30/22 08/30/22 mcg-4.5 mcg/actuation aerosol inhaler cholecalciferol (vitamin D3) 125 250 mcg PO DAILY 08/30/22 08/30/22 mcg (5,000 unit) tablet (Vitamin D3) Previous Rx's Medication Instructions Recorded hydrocodone 5 mg-acetaminophen 325 1 tab PO Q6H PRN pain #20 tabs 08/24/22 mg tablet hydroxyzine pamoate 25 mg capsule 25 mg PO QID PRN spasms #20 caps 08/24/22 (Vistaril) Allergies Allergy/AdvReac Type Severity Reaction Status Date / Time Bleach (Sodium Hypochlorite) Allergy Severe Swelling Verified 08/21/23 20:25 of Lip/Tongue/Throat dextromethorphan Allergy Severe Hives Verified 08/21/23 20:25 gabapentin Allergy Severe suicidal Verified 08/21/23 20:25 nickel Allergy Severe sores Verified 08/21/23 20:25 polyethylene glycol 3350 Allergy Severe Swelling Verified 08/21/23 20:25 [From Miralax] of Lip/Tongue/Throat pregabalin [From Lyrica] Allergy Severe Depression Verified 08/21/23 20:25 chlorhexidine Allergy Intermediate Rash Verified 08/21/23 20:25 doxycycline Allergy Intermediate Rash Verified 08/21/23 20:25 povidone-iodine Allergy Intermediate ITCHING Verified 08/21/23 20:25 [From Betadine] adhesive Allergy Unknown blisters Verified 08/21/23 20:25 aspirin Allergy Unknown asthma as Verified 08/21/23 20:25 a child chlorpheniramine Allergy Unknown Rash Verified 08/21/23 20:25 codeine Allergy Unknown Rash Verified 08/21/23 20:25 guaifenesin Allergy Unknown Rash Verified 08/21/23 20:25 hydromorphone Allergy Unknown Chest Pain Verified 08/21/23 20:25 iodine Allergy Unknown Rash Verified 08/21/23 20:25 latex Allergy Unknown Rash Verified 08/21/23 20:25 montelukast Allergy Unknown joint Verified 08/21/23 20:25 swelling nystatin Allergy Unknown Swelling Verified 08/21/23 20:25 of Lip/Tongue/Throat peanut Allergy Unknown mouth Verified 08/21/23 20:25 swelling pecan nut [PECAN NUT] Allergy Unknown mouth Verified 08/21/23 20:25 swelling pseudoephedrine Allergy Unknown asthma Verified 08/21/23 20:25 symptoms shellfish derived Allergy Unknown Anaphylaxis Verified 08/21/23 20:25 [SHELLFISH DERIVED] Sulfa (Sulfonamide Allergy Unknown Rash Verified 08/21/23 20:25 Antibiotics) walnut [WALNUT] Allergy Unknown mouth Verified 08/21/23 20:25 swelling fentanyl AdvReac Intermediate ITCHING Verified 08/21/23 20:25 hydrochlorothiazide AdvReac Intermediate ITCHING Verified 08/21/23 20:25 lamotrigine [From Lamictal] AdvReac Intermediate Depression Verified 08/21/23 20:25 Review of Systems Constitutional Constitutional: Reports system reviewed and no additional complaints, except as documented Cardiovascular Cardiovascular: Reports system reviewed and no additional complaints, except as documented Respiratory Respiratory: Reports system reviewed and no additional complaints, except as documented Gastrointestinal Gastrointestinal: Reports system reviewed and no additional complaints, except as documented Genitourinary Genitourinary: Reports system reviewed and no additional complaints, except as documented Integumentary/Breasts Skin/Breast: Reports system reviewed and no additional complaints, except as documented Neurologic Neurologic: Reports system reviewed and no additional complaints, except as documented Hematologic/Lymphatic On Anticoagulants: No Patient History Medical History History of malignant neoplasm of both breasts Port-A-Cath in place Insomnia Hyperglycemia Hyperthyroidism Migraine Anxiety Hyperlipidemia Acute idiopathic pericarditis Vertigo Invasive ductal carcinoma of left breast in female Carcinoma of left lung Injury of nasal sinus Epistaxis Gastritis Asthma Cough Radiation-induced esophagitis Surgical History H/O bilateral mastectomy History of right knee joint replacement Hx of cholecystectomy Hx of lymph node excision Family History Mother Early onset Alzheimer's dementia Brother Early onset Alzheimer's dementia Father Myocardial infarct CVA (cerebral vascular accident) Brother Asthma Sister Nasopharyngeal cancer Social History household members: spouse Smoking Status: Never smoker alcohol intake: never Smoking Status: Never smoker alcohol intake frequency: holidays/special occasions only Substance Use Type: does not use Exam Initial Vital Signs Initial Vital Signs: Vital Signs Temperature 98 F 08/21/23 20:10 Pulse Rate 79 08/21/23 20:10 Respiratory Rate 18 08/21/23 20:10 Blood Pressure 166/74 H 08/21/23 20:10 Pulse Oximetry 96 08/21/23 20:10 Oxygen Delivery Method Room Air 08/21/23 20:10 Const General: cooperative, comfortable and No ill appearing HENMT Head: normal to inspection and normocephalic Resp Effort & Inspection: normal respiratory effort Auscultation: clear to auscultation bilaterally Cardio Rate: regular rate Rhythm: regular rhythm GI Inspection: normal to inspection and non-distended Palpation: soft and tender (Left-sided abdomen) Skin General: no rashes or lesions noted Neuro General: patient alert, patient awake and moves all extremities Course Orders Ordered: ED Orders 08/21/23 20:51 Complete Blood Count AUTO DIFF Stat Comprehensive Metabolic Panel Stat Lipase Stat 08/21/23 21:06 CT abdomen pelvis wo con Stat Discontinued Medications Heparin Sodium (Porcine) (Heparin 500 Unit/5 Ml Port Flush) 500 unit IV PRN PRN PRN Reason: Flush Last Admin: 08/21/23 23:16 Dose: 500 unit Documented By: VIN Sodium Chloride (Normal Saline 0.9%) 1,000 mls @ 1,000 mls/hr IV BOLUS ONE Stop: 08/21/23 21:36 Last Infusion: 08/21/23 22:59 Dose: Infused Documented By: Admin: 08/21/23 20:58 Dose: 1,000 mls/hr Documented By: VIN Ondansetron HCl (Ondansetron 4 Mg/2 Ml Inj) 4 mg IV NOW ONE Stop: 08/21/23 20:38 Last Admin: 08/21/23 20:59 Dose: 4 mg Documented By: VIN Vital Signs Vital signs: Vital Signs - 8 hr 08/21/23 20:10 08/21/23 21:03 08/21/23 21:04 Temperature 98 F Pulse Rate 79 82 Respiratory Rate 18 Blood Pressure 166/74 H 130/68 Pulse Oximetry 96 95 Oxygen Delivery Method Room Air Room Air 08/21/23 21:24 08/21/23 21:24 08/21/23 21:30 Temperature Pulse Rate 71 73 Respiratory Rate Blood Pressure 135/71 Pulse Oximetry 94 93 Oxygen Delivery Method Room Air Room Air 08/21/23 21:30 08/21/23 22:00 08/21/23 22:00 Temperature Pulse Rate 72 Respiratory Rate Blood Pressure 136/75 131/69 Pulse Oximetry 95 Oxygen Delivery Method Room Air 08/21/23 22:12 08/21/23 22:12 08/21/23 22:30 Temperature Pulse Rate 75 64 Respiratory Rate Blood Pressure 143/71 H Pulse Oximetry 95 95 Oxygen Delivery Method Room Air Room Air 08/21/23 22:30 08/21/23 23:00 08/21/23 23:00 Temperature Pulse Rate 69 Respiratory Rate Blood Pressure 125/70 131/63 Pulse Oximetry 95 Oxygen Delivery Method Room Air 08/21/23 23:18 Temperature 98.6 F Pulse Rate Respiratory Rate Blood Pressure Pulse Oximetry Oxygen Delivery Method Medical Decision Making Lab Data Lab results reviewed: Yes I reviewed the patient's lab results. 08/21/23 20:51 08/21/23 20:51 Labs: Lab Results 08/21/23 Range/Units 20:51 WBC 6.7 (4.5-11.0) X10^3/uL RBC 4.49 (4.0-5.2) X10^6/uL Hgb 12.5 (12.0-16.0) g/dL Hct 37.5 (36-46) % MCV 83.5 (80-100) fL MCH 27.8 (26-34) PG MCHC 33.3 (30-36) % RDW 16.1 H (11.6-14.8) % Plt Count 311 (150-400) X10^3/uL Neut % (Auto) 51.5 (50-75) % Lymph % (Auto) 35.3 (25-40) % [place] % (Auto) 10.7 (3-14) % Eos % (Auto) 1.8 L (2-4) % Baso % (Auto) 0.7 (0-2) % Neut # (Auto) 3500 (5440-8777) /uL Lymph # (Auto) 2400 (2937-3309) /uL [place] # (Auto) 700 (0-900) /uL Eos # (Auto) 100 (0-450) /uL Baso # (Auto) 100 (0-100) /uL Sodium 137 (137-145) mmol/L Potassium 3.5 (3.4-5.1) mmol/L Chloride 103 (98-107) mmol/L Carbon Dioxide 24 (22-32) mmol/L BUN 10 (7-17) mg/dL Creatinine 0.65 (0.52-1.04) mg/dL Estimated GFR > 60 (>60) mL/min BUN/Creatinine Ratio 15.4 (6-22) Glucose 102 (80-110) mg/dL Calcium 9.5 (8.4-10.2) mg/dL Total Bilirubin 0.3 (0.2-1.3) mg/dL AST 30 (14-36) IU/L ALT 37 H (<35) IU/L Alkaline Phosphatase 99 (38-126) U/L Total Protein 7.1 (6.3-8.2) g/dL Albumin 4.1 (3.5-5.0) g/dL Globulin 3.0 (1.7-4.1) g/dL Albumin/Globulin Ratio 1.4 (1.0-2.8) Lipase 54 (23-300) U/L Urine Dip Bedside Urine Glucose Negative Bedside Urine Bilirubin - Negative Bedside Urine Ketone - Negative Urine Specific [place] 1.000 Bedside Urine Occult Blood - Negative Bedside Urine pH 6.0 Bedside Urine Protein - Negative Bedside Urine Urobilinogen - Negative Bedside Urine Nitrite - Negative Bedside Urine Leukocytes - Negative Esterase Point of care testing: Urine Dip Bedside Urine Glucose Negative Bedside Urine Bilirubin - Negative Bedside Urine Ketone - Negative Urine Specific [place] 1.000 Bedside Urine Occult Blood - Negative Bedside Urine pH 6.0 Bedside Urine Protein - Negative Bedside Urine Urobilinogen - Negative Bedside Urine Nitrite - Negative Bedside Urine Leukocytes - Negative Esterase Imaging Data CT scan - abdomen/pelvis: Radiologist's Impression: PROCEDURE: CT ABDOMEN PELVIS WO CON INDICATIONS: LLQ abd pain eval for diverticulitis TECHNIQUE: Axial sections were acquired from the lung bases to the pubic symphysis. Coronal and sagittal reformats were performed. For radiation dose reduction, the following was used: automated exposure control, adjustment of mA and/or kV according to patient size. COMPARISON: [facility], CT, CT CHEST ABDOMEN PELVIS WITH CONTRAST, 12/10/2021, 12:10. [facility], CT, CT CHEST ABDOMEN PELVIS WITH CONTRAST, 04/05/2022, 11:00. [facility], CT, CT CHEST ABDOMEN PELVIS WITH CONTRAST, 11/05/2022, 9:54. [facility], CT, CT CHEST ABDOMEN PELVIS WITH CONTRAST, 04/25/2023, 10:31. FINDINGS: Image quality: Excellent. Lung bases: Unremarkable. Tiny hiatal hernia. Heart: Normal size. Trace pericardial effusion. URINARY: Right Kidney: No stones or hydronephrosis. Right Ureter: No hydroureter. Left Kidney: No stones or hydronephrosis. Left Ureter: No hydroureter. Bladder: Normal wall thickness. No stones. ABDOMEN: Liver: Moderate hepatic steatosis. There is a 2 cm hypodense nodule in the posterior segment of the right hepatic lobe, unchanged and most likely a cyst. Gallbladder: Surgically removed. Biliary ducts: Unremarkable. Pancreas: Unremarkable. Spleen: Unremarkable. Adrenal Glands: Unremarkable. Stomach and Bowel: Stomach, small bowel loops, and colon are normal in caliber. Diverticulosis. No acute diverticulitis. Peritoneum: No abnormal intraperitoneal fluid. No free air. Ventral Wall: No hernia. Abdominal Nodes: No enlarged retroperitoneal or mesenteric lymph nodes. Vessels: Aorta and inferior vena cava are normal in size. PELVIS: Pelvic Organs: Unremarkable. Pelvic Nodes: Unremarkable. Miscellaneous: No inguinal hernias are seen. Bones: Unremarkable. IMPRESSION: 1. Diverticulosis. No acute diverticulitis. 2. Moderate hepatic steatosis. MDM Narrative Medical decision making narrative: Urinalysis shows no signs of infection. Labs are unremarkable. No skin changes concerning for zoster. CT scan shows diverticulosis without signs of acute diverticulitis. No signs of renal stones. No signs of ureteral stone. Low suspicion for pyelo. No bowel obstruction. I had a discussion with the patient regarding this. She understands lack of a definitive diagnosis. There was no indication for antibiotics. No indication for admission to the hospital. No indication for emergent surgical consultation. Will discharge patient home with return precautions. She expressed understanding and agreement with plan. Discharge Plan Departure Patient Disposition: Home Clinical Impression: Abdominal pain Instructions: DI for Abdominal Pain-Adult Activity Restrictions/Additional Instructions: Continue to take all of your medications as directed. Return to the emergency department for new or worsening symptoms like we discussed. Prescriptions: No Action meclizine 25 mg tablet 25 mg PO PRN PRN (Reason: Vertigo) letrozole 2.5 mg tablet 2.5 mg PO DAILY multivitamin [Multiple Vitamins] 1 EACH tablet 1 tab PO QDAY Qty: 0 fluoxetine [Prozac] 40 MG capsule 40 mg PO QDAY Qty: 0 pantoprazole [Protonix] 20 mg Tablet,Delayed Release (Dr/Ec) 20 mg PO DAILY Zyrtec 10 mg Capsule 10 mg PO DAILY levothyroxine [Synthroid] 150 mcg Tablet 137 mcg PO DAILY albuterol sulfate 90 mcg/actuation Hfa Aerosol Inhaler 2 puff INHALATION QID PRN (Reason: Shortness Of Breath) budesonide-formoterol 160-4.5 mcg/actuation HFA aerosol inhaler 2 puff INHALATION BID cholecalciferol (vitamin D3) [Vitamin D3] 125 mcg (5,000 unit) Tablet 250 mcg PO DAILY amlodipine 5 mg tablet 5 mg PO DAILY hydroxyzine pamoate [Vistaril] 25 mg capsule 25 mg PO QID PRN (Reason: spasms) Qty: 20 0RF hydrocodone-acetaminophen 5-325 mg tablet 1 tab PO Q6H PRN (Reason: pain) Qty: 20 0RF Referrals: Moises Mcmanus DO [Primary Care Provider] - Stand Alone Forms: Patient Portal/API
[2023-08-21] MEDS: SODIUM CHLORIDE 0.9% 1,000 ML 1000 ML IV (20:58)
[2023-08-21] MEDS: ONDANSETRON 4 MG/2 ML INJ IV (20:59)
[2023-08-21 21:01] LABS: Add Manual Diff / Slide Review NO; Basophils Absolute Auto 100 /uL (0-100); Basophils Percent Auto 0.7 % (0-2); Eosinophils Absolute Auto 100 /uL (0-450); Eosinophils Percent Auto 1.8 % (2-4); Hematocrit 37.5 % (36-46); Hemoglobin 12.5 g/dL (12.0-16.0); Lymphocytes Absolute Auto 2400 /uL (1100-4500); Lymphocytes Percent Auto 35.3 % (25-40); Mean Corpuscular HGB Conc 33.3 % (30-36); Mean Corpuscular Hemoglobin 27.8 PG (26-34); Mean Corpuscular Volume 83.5 fL (80-100); Monocytes Absolute Auto 700 /uL (0-900); Monocytes Percent Auto 10.7 % (3-14); Neutrophils Absolute Auto 3500 /uL (1500-7000); Neutrophils Percent Auto 51.5 % (50-75); Platelet Count 311 X10^3/uL (150-400); Red Blood Cell Count 4.49 X10^6/uL (4.0-5.2); Red Cell Distribution Width 16.1 % (11.6-14.8); White Blood Cell Count 6.7 X10^3/uL (4.5-11.0)
--- NOTE | 2023-08-21 21:06 | DI.CT.S_ITS ---
PROCEDURE: CT ABDOMEN PELVIS WO CON INDICATIONS: LLQ abd pain eval for diverticulitis TECHNIQUE: Axial sections were acquired from the lung bases to the pubic symphysis. Coronal and sagittal reformats were performed. For radiation dose reduction, the following was used: automated exposure control, adjustment of mA and/or kV according to patient size. COMPARISON: [facility], CT, CT CHEST ABDOMEN PELVIS WITH CONTRAST, 12/10/2021, 12:10. [facility], CT, CT CHEST ABDOMEN PELVIS WITH CONTRAST, 04/05/2022, 11:00. [facility], CT, CT CHEST ABDOMEN PELVIS WITH CONTRAST, 11/05/2022, 9:54. [facility], CT, CT CHEST ABDOMEN PELVIS WITH CONTRAST, 04/25/2023, 10:31. FINDINGS: Image quality: Excellent. Lung bases: Unremarkable. Tiny hiatal hernia. Heart: Normal size. Trace pericardial effusion. URINARY: Right Kidney: No stones or hydronephrosis. Right Ureter: No hydroureter. Left Kidney: No stones or hydronephrosis. Left Ureter: No hydroureter. Bladder: Normal wall thickness. No stones. ABDOMEN: Liver: Moderate hepatic steatosis. There is a 2 cm hypodense nodule in the posterior segment of the right hepatic lobe, unchanged and most likely a cyst. Gallbladder: Surgically removed. Biliary ducts: Unremarkable. Pancreas: Unremarkable. Spleen: Unremarkable. Adrenal Glands: Unremarkable. Stomach and Bowel: Stomach, small bowel loops, and colon are normal in caliber. Diverticulosis. No acute diverticulitis. Peritoneum: No abnormal intraperitoneal fluid. No free air. Ventral Wall: No hernia. Abdominal Nodes: No enlarged retroperitoneal or mesenteric lymph nodes. Vessels: Aorta and inferior vena cava are normal in size. PELVIS: Pelvic Organs: Unremarkable. Pelvic Nodes: Unremarkable. Miscellaneous: No inguinal hernias are seen. Bones: Unremarkable. IMPRESSION: 1. Diverticulosis. No acute diverticulitis. 2. Moderate hepatic steatosis. Dictated by: Elliot Lau M.D. on 08/21/2023 at 22:33 Approved by: Elliot Lau M.D. on 08/21/2023 at 22:38
[2023-08-21 21:14] LABS: Alanine Aminotransferase 37 IU/L (<35); Albumin 4.1 g/dL (3.5-5.0); Albumin Globulin Ratio 1.4 (1.0-2.8); Alkaline Phosphatase 99 U/L (38-126); Aspartate Aminotransferase 30 IU/L (14-36); BUN Creatinine Ratio 15.4 (6-22); Bilirubin Total 0.3 mg/dL (0.2-1.3); Blood Urea Nitrogen 10 mg/dL (7-17); Calcium 9.5 mg/dL (8.4-10.2); Carbon Dioxide 24 mmol/L (22-32); Chloride 103 mmol/L (98-107); Estimated Glomerular Filt Rate > 60 mL/min (>60); Glucose 102 mg/dL (80-110); HEMOLYSIS < 15 (0-50); Lipase 54 U/L (23-300); Potassium 3.5 mmol/L (3.4-5.1); Sodium 137 mmol/L (137-145); Total Protein 7.1 g/dL (6.3-8.2)
== END 2023-08-21 23:19 | disposition home or self-care (01) ==
PROVIDERS: Emergency Provider Emergency Medicine; Family Provider Student in an Organized Health Care Education/Training Program; PCP Student in an Organized Health Care Education/Training Program
DX: R10.32 Left lower quadrant pain (principal); R11.0 Nausea
CPT/HCPCS: 36415; 74176; 80053; 81003; 83690; 85025; 96361; 96374; 99284; J1642; J2405

== ENCOUNTER → 2023-09-10 09:13 | Outpatient (CLI) | payer OTHER, SELFPAY ==
[2020-12-06 18:29] VITALS: BMI 33.6
--- NOTE | 2023-09-10 | DI.RAD.S_ITS ---
PROCEDURE: FL BARIUM SWALLOW INDICATIONS: Laryngeal spasm COMPARISON: None. FINDINGS: Function: There is normal esophageal peristalsis. No elicited gastroesophageal reflux. There is normal transit of a calibrated barium tablet through the esophagus into the stomach. Morphology: Air-contrast images demonstrate normal mucosal morphology. Single contrast views show no esophageal strictures, extrinsic mass effects, or diverticula. Limited images of the stomach demonstrate normal appearance. IMPRESSION: No evidence of aspiration or penetration. Please see speech pathology report for complete findings. Dictated by: Josh Armijo M.D. on 09/10/2023 at 14:39 Approved by: Josh Armijo M.D. on 09/10/2023 at 14:39
--- NOTE | 2023-09-10 12:51 | ST.SWALLOW ---
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 Pt has a long history of laryngospasm, which can be severe at times, needing her to calm her and help her to relax and breathe. Pt had been enrolled in in 2021. 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 Pt has a PMH of lung CA out of the lung and wrapped around her aorta with chemo and radiation therapy. Additionally, she had breast CA with mastectomy, radiation and chemo therapies. Pt also has a PMH of GERD. Pt is currently seen for services for laryngospasm. MBSS was ordered to determine aspiration risk and to inform POC. Subjective Observations Pt was seated in the fluoroscopy chair with procedure and instructions described for her. Pt indicated she understood and agreed to proceed. Patient Positioning Position View Lat-A/P Imaging Lateral View Textures Administered Trials Presented Thin Liquid via Spoon (IDDSI 0 ),Thin Liquid via Cup (IDDSI 0 ),Extremely Thick Liquid via Spoon (IDDSI 4),Regular (IDDSI 7) Barium Tablet Yes The IDDSI Framework Protocol: IDDSI.1 Oral Impairment Source: The Modified Barium Swallow Impairment Profile (MBSImP??) Lip Closure No labial escape Tongue Control During Bolus Hold Cohesive bolus between tongue to palatal seal Bolus Preparation/Mastication Timely & efficient chewing & mashing Bolus Transport/Lingual Motion Brisk tongue motion Oral Residue Complete oral clearance Initiation of Pharyngeal Swallow Bolus head in valleculae Additional Oral Impairment Observations OME and DKS were observed to be WNL. Dentition was natural in good hygiene. Mastication demonstrated a rotary chew pattern. Bolus preparation, control and AP transition were WNL. Pharyngeal Impairment Source: The Modified Barium Swallow Impairment Profile (MBSImP??) Soft Palate Elevation No bolus between soft palate & pharyngeal wall Laryngeal Elevation No superior movement of thyroid cartilage Anterior Hyoid Excursion No anterior movement Epiglottic Movement Complete inversion Laryngeal Vestibular Closure Complete; no air/contrast in laryngeal vestibule Pharyngeal Stripping Wave Present - complete Pharyngoesophageal Segment Opening Complete distention & complete duration; no obstruction of flow Tongue Base Retraction Narrow column of contrast/air betwn tongue base & post. pharyngeal wall Pharyngeal Residue Trace residue within/on pharyngeal structures Location Valleculae Additional Pharyngeal Impairment Tongue base weakness was Observations observed as well and minimal hyolaryngeal elevation/ movement. The epiglottic inversion was observed to be complete with adequate seal of the laryngeal vestibule. Minimal pharyngeal pooling observed after all trials. Pharyngeal phase of swallow WFL. A/P View Textures Administered Trials Presented Thin Liquid via Cup (IDDSI 0) The IDDSI Framework Protocol: IDDSI.1 A/P View Observations Pharyngeal Contraction Complete Esophageal Clearance Upright Position Esophageal retention Vocal Fold Function Good Esophageal Function WFL Additional A-P Observations In the AP position, the pt's esophagus cleared as expected with thin liquid trial. An 11mm barium tablet was observed to remain at GE junction requiring additional liquid swallows. When the tablet was withing the GE junction the pt noted a sense of globus, pointing at the sternal notch. After the tablet entered the stomach, the pt reported resolved globus sensation. Clinical Impressions Findings Overall, the pt presented with swallowing WFL. There was no hyolaryngeal elevation/ movement observed, which may be a after-effect of possible scatter radiation during her cancer treatments. Regardless there appeared to be adequate epiglottic inversion, laryngeal seal and opening of the PES. No laryngeal penetration nor aspiration were observed. No change in diet recommended. Rehabilitation Potential Good Patient Appropriate for Therapy No Recommendations Diet Liquids Order Thin (IDDSI 0) Diet Order Regular (IDDSI 7) Medication Recommendation As Tolerated,Crushed in Carrier Aspiration Precautions Recommended Precautions Upright at 90 Degrees, Alternate Liquids/Solids,Small Bites/Sips Additional Precautions Increase mindfulness of swallowing; reduced distractions during meal, Treatment Plan Therapy Recommendations Outpatient Speech Therapy Therapy Strategy Recommendations Sitting Upright (90 deg),Small Bites and Sips Additional Strategies Recommended reduce distractions when eating
== END ==
PROVIDERS: Family Provider Student in an Organized Health Care Education/Training Program; PCP Student in an Organized Health Care Education/Training Program; Referring Provider Nurse Practitioner Family; Visit Provider Nurse Practitioner Family
DX: J38.5 Laryngeal spasm (principal)
CPT/HCPCS: 74220; 92611

== ENCOUNTER → 2023-12-05 08:42 | Outpatient (CLI) | payer MEDICARE, OTHER, SELFPAY ==
[2020-12-06 18:29] VITALS: BMI 33.6
[2023-12-05 10:22] LABS: TSH w/ Reflex to FT4 < 0.02 uIU/mL (0.47-4.68)
[2023-12-05 10:46] LABS: Free T4, Direct Thyroxine 1.45 ng/dL (0.78-2.19)
== END ==
PROVIDERS: Family Provider Student in an Organized Health Care Education/Training Program; PCP Family Medicine; Referring Provider Family Medicine; Visit Provider Family Medicine
DX: E03.9 Hypothyroidism, unspecified (principal)
CPT/HCPCS: 36415; 84439; 84443

== ENCOUNTER 2024-05-12 15:25 | Emergency (ER) | payer MEDICARE, OTHER, SELFPAY ==
[2020-12-06 18:29] VITALS: BMI 33.6
[2024-05-12 15:28] VITALS: BP 123/71; PULSE 76; RESP 16; TEMP 37.2; O2SAT 96; BMI 35.5
--- NOTE | 2024-05-12 16:00 | ED.ABDPAIN ---
HPI - Abdominal Pain General Chief Complaint: Abdominal Pain Stated Complaint: hernia is acting up sent by [facility] Time Seen by Provider: 05/12/24 15:53 Source: patient Mode of arrival: Ambulatory History of Present Illness HPI narrative: 63-year-old female with history of lung cancer, in remission, presents for evaluation of midepigastric abdominal pain. Patient was concerned that her hiatal hernia is causing issues. She reports a pinching sensation in the midepigastric region of her abdomen Related Data Home Medications Medication Instructions Recorded Confirmed multivitamin (Multiple Vitamins 1 tab PO QDAY ##0 09/27/16 02/09/24 tablet) letrozole 2.5 mg tablet 2.5 mg PO DAILY 07/18/19 02/09/24 meclizine 25 mg tablet 25 mg PO PRN PRN Vertigo 07/18/19 02/09/24 albuterol sulfate 90 mcg/actuation 2 puff inhalation QID PRN 08/30/22 02/09/24 aerosol inhaler Shortness Of Breath budesonide-formoterol HFA 160 2 puff inhalation BID 08/30/22 02/09/24 mcg-4.5 mcg/actuation aerosol inhaler cholecalciferol (vitamin D3) 125 250 mcg PO DAILY 08/30/22 02/09/24 mcg (5,000 unit) tablet (Vitamin D3) diphenhydramine HCl 25 mg capsule mg PO 12/05/23 02/09/24 (Banophen) metronidazole 0.75 % topical cream applic topical DAILY 12/05/23 02/09/24 ondansetron HCl 8 mg tablet 8 mg PO 3XD 12/05/23 02/09/24 prednisone 50 mg tablet 50 mg PO DAILY 12/05/23 02/09/24 Previous Rx's Medication Instructions Recorded amlodipine 5 mg tablet 5 mg PO DAILY #90 tabs 12/05/23 cetirizine 10 mg capsule (Zyrtec) 10 mg PO DAILY #90 caps 12/05/23 ezetimibe 10 mg tablet (Zetia) 10 mg PO DAILY #90 tabs 12/05/23 fluoxetine 40 mg capsule (Prozac) 40 mg PO QDAY #90 caps 12/05/23 fluticasone propionate 50 1 spray intranasal BID #16 grams 12/05/23 mcg/actuation nasal spray,suspension pantoprazole 20 mg tablet,delayed 20 mg PO DAILY #90 tabs 12/05/23 release (Protonix) levothyroxine 100 mcg capsule 100 mcg PO DAILY #30 caps 12/31/23 DISABLED PARKING PERMIT #1 ea 01/02/24 dicyclomine 20 mg tablet 20 mg PO TID #30 tabs 05/12/24 Allergies Allergy/AdvReac Type Severity Reaction Status Date / Time Bleach (Sodium Hypochlorite) Allergy Severe Swelling Verified 05/12/24 15:38 of Lip/Tongue/Throat dextromethorphan Allergy Severe Hives Verified 05/12/24 15:38 gabapentin Allergy Severe suicidal Verified 05/12/24 15:38 nickel Allergy Severe sores Verified 05/12/24 15:38 polyethylene glycol 3350 Allergy Severe Swelling Verified 05/12/24 15:38 [From Miralax] of Lip/Tongue/Throat pregabalin [From Lyrica] Allergy Severe Depression Verified 05/12/24 15:38 chlorhexidine Allergy Intermediate Rash Verified 05/12/24 15:38 doxycycline Allergy Intermediate Rash Verified 05/12/24 15:38 povidone-iodine Allergy Intermediate ITCHING Verified 05/12/24 15:38 [From Betadine] adhesive Allergy Unknown blisters Verified 05/12/24 15:38 aspirin Allergy Unknown asthma as Verified 05/12/24 15:38 a child chlorpheniramine Allergy Unknown Rash Verified 05/12/24 15:38 codeine Allergy Unknown Rash Verified 05/12/24 15:38 guaifenesin Allergy Unknown Rash Verified 05/12/24 15:38 hydromorphone Allergy Unknown Chest Pain Verified 05/12/24 15:38 iodine Allergy Unknown Rash Verified 05/12/24 15:38 latex Allergy Unknown Rash Verified 05/12/24 15:38 montelukast Allergy Unknown joint Verified 05/12/24 15:38 swelling nystatin Allergy Unknown Swelling Verified 05/12/24 15:38 of Lip/Tongue/Throat peanut Allergy Unknown mouth Verified 05/12/24 15:38 swelling pecan nut [PECAN NUT] Allergy Unknown mouth Verified 05/12/24 15:38 swelling pseudoephedrine Allergy Unknown asthma Verified 05/12/24 15:38 symptoms shellfish derived Allergy Unknown Anaphylaxis Verified 05/12/24 15:38 [SHELLFISH DERIVED] Sulfa (Sulfonamide Allergy Unknown Rash Verified 05/12/24 15:38 Antibiotics) walnut [WALNUT] Allergy Unknown mouth Verified 05/12/24 15:38 swelling fentanyl AdvReac Intermediate ITCHING Verified 05/12/24 15:38 hydrochlorothiazide AdvReac Intermediate ITCHING Verified 05/12/24 15:38 lamotrigine [From Lamictal] AdvReac Intermediate Depression Verified 05/12/24 15:38 Patient History Medical History Rosacea (~2018) Osteoarthritis (~2013) Sleep apnea (~2022) Allergies (~1969) PTSD (post-traumatic stress disorder) (~1979) Depression (~1979) Headache Osteopenia (~2021) Wrist fracture (~2021) Measles Chicken pox Vocal cord paralysis (~2016) Cataracts, bilateral (~2021) Hemorrhoid (~1979) GERD (gastroesophageal reflux disease) (~1989) Diverticular disease (~2022) Hypertension Type 2 diabetes mellitus (~2023) Lung cancer (~2013) Thrush, oral History of malignant neoplasm of both breasts (~2015) Port-A-Cath in place Insomnia Hyperglycemia Hyperthyroidism (~2019) Migraine Anxiety Hyperlipidemia (~1999) Acute idiopathic pericarditis Vertigo (~1989) Invasive ductal carcinoma of left breast in female Carcinoma of left lung Injury of nasal sinus Epistaxis Gastritis Asthma (~2005) Cough Radiation-induced esophagitis Surgical History Anesthesia Status post wrist surgery (~08/30/22) Skin cancer (~03/2019) Hx of lymph node excision Hx of cholecystectomy History of right knee joint replacement H/O bilateral mastectomy Family History Mother Early onset Alzheimer's dementia Stroke Cancer Diabetes mellitus History of heart disease Hypertension Hyperlipidemia Brother Early onset Alzheimer's dementia Father Myocardial infarct Stroke History of heart disease Hypertension Hyperlipidemia Brother Asthma Sister Nasopharyngeal cancer Mental health problem Sister Asthma Prediabetes Grandfather Cancer Grandmother Stroke Grandfather Tuberculosis Grandmother Tuberculosis Social History household members: spouse Smoking Status: Never smoker alcohol intake: never Smoking Status: Never smoker alcohol intake frequency: holidays/special occasions only Substance Use Type: does not use Exam Initial Vital Signs Initial Vital Signs: Vital Signs Temperature 98.9 F 05/12/24 15:28 Pulse Rate 76 05/12/24 15:28 Respiratory Rate 16 05/12/24 15:28 Blood Pressure 123/71 05/12/24 15:28 Pulse Oximetry 96 05/12/24 15:28 Oxygen Delivery Method Room Air 05/12/24 15:28 Const: Awake, alert, no acute distress, nontoxic appearing Cardiac: regular rate, regular rhythm RESP: unlabored, clear bilaterally, no wheezing GI: Soft, nontender, nondistended, no rebound, no guarding MSK: Atraumatic, full range of motion, pulses equal Skin: Warm, Dry, intact, no rashes Neuro: AO x3, CN II-XII grossly intact, moves all extremities Course Orders Ordered: Discontinued Medications Heparin Sodium (Porcine) (Heparin 500 Unit/5 Ml Port Flush) 500 unit IV PRN PRN PRN Reason: Flush Last Admin: 05/12/24 17:49 Dose: 500 unit Documented By: SPF Vital Signs Vital signs: Vital Signs - 8 hr 05/12/24 15:28 05/12/24 16:21 05/12/24 16:30 Temperature 98.9 F Pulse Rate 76 72 70 Respiratory Rate 16 Blood Pressure 123/71 Pulse Oximetry 96 95 96 Oxygen Delivery Method Room Air 05/12/24 16:59 05/12/24 16:59 05/12/24 17:00 Temperature Pulse Rate 70 69 Respiratory Rate Blood Pressure 116/59 L Pulse Oximetry 96 96 Oxygen Delivery Method Room Air 05/12/24 17:00 Temperature Pulse Rate Respiratory Rate Blood Pressure 104/55 L Pulse Oximetry Oxygen Delivery Method MDM - Abdominal Pain Lab Data 05/12/24 17:00 05/12/24 17:00 Labs: Lab Results 05/12/24 Range/Units 17:00 WBC 10.1 (4.5-11.0) X10^3/uL RBC 4.18 (4.0-5.2) X10^6/uL Hgb 11.9 L (12.0-16.0) g/dL Hct 36.0 (36-46) % MCV 86.3 (80-100) fL MCH 28.6 (26-34) PG MCHC 33.2 (30-36) % RDW 15.8 H (11.6-14.8) % Plt Count 312 (150-400) X10^3/uL Neut % (Auto) 58.4 (50-75) % Lymph % (Auto) 30.1 (25-40) % [place] % (Auto) 8.9 (3-14) % Eos % (Auto) 2.0 (2-4) % Baso % (Auto) 0.6 (0-2) % Neut # (Auto) 5900 (2627-2556) /uL Lymph # (Auto) 3000 (1683-3731) /uL [place] # (Auto) 900 (0-900) /uL Eos # (Auto) 200 (0-450) /uL Baso # (Auto) 100 (0-100) /uL Sodium 137 (137-145) mmol/L Potassium 4.0 (3.4-5.1) mmol/L Chloride 106 (98-107) mmol/L Carbon Dioxide 24 (22-32) mmol/L BUN 15 (7-17) mg/dL Creatinine 0.80 (0.52-1.04) mg/dL Estimated GFR > 60 (>60) mL/min BUN/Creatinine Ratio 18.8 (6-22) Glucose 83 (80-110) mg/dL Calcium 8.4 (8.4-10.2) mg/dL Total Bilirubin 0.4 (0.2-1.3) mg/dL AST 30 (14-36) IU/L ALT 30 (<35) IU/L Alkaline Phosphatase 96 (38-126) U/L Total Protein 6.3 (6.3-8.2) g/dL Albumin 4.1 (3.5-5.0) g/dL Globulin 2.2 (1.7-4.1) g/dL Albumin/Globulin Ratio 1.9 (1.0-2.8) Lipase 72 (23-300) U/L MDM Narrative Medical decision making narrative: Pinching midepigastric abdominal pain. Exam soft, no significant tenderness to light or deep palpation. Patient just [address] of her chest, abdomen, and pelvis as part of screening following her lung cancer. She has the report present and I reviewed the report. No issue with the hiatal hernia at that time. Laboratory work reviewed, unremarkable. Discussed results with patient's GI doctor up in [place], who stated nothing else needed to be done, the hiatal hernia was very small and not an issue for concern at this time. Patient can follow up in the office as needed. Patient is relieved to hear GI recommendations. She was afraid that her intestines may be strangulating. Based on presentation and exam I have no suspicion for bowel strangulation at this time Discharge Plan Departure Patient Disposition: Home Clinical Impression: Abdominal pain Qualifiers: Abdominal location: upper abdomen, unspecified Qualified Code(s): R10.10 - Upper abdominal pain, unspecified Instructions: DI for Abdominal Pain-Adult Activity Restrictions/Additional Instructions: Your laboratory work today was normal, there was no sign of infection or inflammation at this time. I spoke with your GI doctor, who said that there should be no complication from your hiatal hernia at this time. Continue to follow up with your accounts receivable specialist for your colon polyps. Take Tylenol as needed for any abdominal discomfort. A short course of antispasmodic medication has been sent to your pharmacy. Prescriptions: New dicyclomine 20 mg tablet 20 mg PO TID Qty: 30 0RF No Action meclizine 25 mg tablet 25 mg PO PRN PRN (Reason: Vertigo) letrozole 2.5 mg tablet 2.5 mg PO DAILY multivitamin [Multiple Vitamins] 1 EACH tablet 1 tab PO QDAY Qty: 0 levothyroxine 100 mcg capsule 100 mcg PO DAILY Qty: 30 2RF ondansetron HCl 8 mg tablet 8 mg PO 3XD prednisone 50 mg tablet 50 mg PO DAILY diphenhydramine HCl [Banophen] 25 mg capsule PO metronidazole 0.75 % cream topical DAILY fluoxetine [Prozac] 40 mg capsule 40 mg PO QDAY Qty: 90 1RF fluticasone propionate 50 mcg/actuation spray,suspension 1 spray intranasal BID Qty: 16 1RF Zyrtec 10 mg capsule 10 mg PO DAILY Qty: 90 1RF pantoprazole [Protonix] 20 mg tablet,delayed release (DR/EC) 20 mg PO DAILY Qty: 90 1RF amlodipine 5 mg tablet 5 mg PO DAILY Qty: 90 1RF ezetimibe [Zetia] 10 mg tablet 10 mg PO DAILY Qty: 90 1RF (DME) DISABLED PARKING PERMIT See Rx Instructions .ROUTE .MEDSUPPLY Qty: 1 0RF Rx Instructions: I FIND THIS PATIENT TO BE MEDICALLY DISABLED AND QUALIFIED FOR DISABLE PARKING INDICATED, AND SIGNED ON THE ACCOMPANYING [employer] AS APPLICATION FOR INDIVIDUALS albuterol sulfate 90 mcg/actuation Hfa Aerosol Inhaler 2 puff INHALATION QID PRN (Reason: Shortness Of Breath) budesonide-formoterol 160-4.5 mcg/actuation HFA aerosol inhaler 2 puff INHALATION BID cholecalciferol (vitamin D3) [Vitamin D3] 125 mcg (5,000 unit) Tablet 250 mcg PO DAILY Referrals: Larissa Snow DO [Primary Care Provider] - Stand Alone Forms: Patient Portal/API
[2024-05-12 16:21] VITALS: PULSE 72; O2SAT 95
[2024-05-12 16:30] VITALS: PULSE 70; O2SAT 96
[2024-05-12 16:59] VITALS: BP 116/59; PULSE 70; O2SAT 96
[2024-05-12 17:00] VITALS: BP 104/55; PULSE 69; O2SAT 96
[2024-05-12 17:04] LABS: Add Manual Diff / Slide Review NO; Basophils Absolute Auto 100 /uL (0-100); Basophils Percent Auto 0.6 % (0-2); Eosinophils Absolute Auto 200 /uL (0-450); Hemoglobin 11.9 g/dL (12.0-16.0); Lymphocytes Absolute Auto 3000 /uL (1100-4500); Lymphocytes Percent Auto 30.1 % (25-40); Mean Corpuscular HGB Conc 33.2 % (30-36); Mean Corpuscular Hemoglobin 28.6 PG (26-34); Mean Corpuscular Volume 86.3 fL (80-100); Monocytes Absolute Auto 900 /uL (0-900); Monocytes Percent Auto 8.9 % (3-14); Neutrophils Absolute Auto 5900 /uL (1500-7000); Neutrophils Percent Auto 58.4 % (50-75); Platelet Count 312 X10^3/uL (150-400); Red Blood Cell Count 4.18 X10^6/uL (4.0-5.2); Red Cell Distribution Width 15.8 % (11.6-14.8); White Blood Cell Count 10.1 X10^3/uL (4.5-11.0)
[2024-05-12 17:24] LABS: Alanine Aminotransferase 30 IU/L (<35); Albumin 4.1 g/dL (3.5-5.0); Albumin Globulin Ratio 1.9 (1.0-2.8); Alkaline Phosphatase 96 U/L (38-126); Aspartate Aminotransferase 30 IU/L (14-36); BUN Creatinine Ratio 18.8 (6-22); Bilirubin Total 0.4 mg/dL (0.2-1.3); Blood Urea Nitrogen 15 mg/dL (7-17); Calcium 8.4 mg/dL (8.4-10.2); Carbon Dioxide 24 mmol/L (22-32); Chloride 106 mmol/L (98-107); Estimated Glomerular Filt Rate > 60 mL/min (>60); Globulin 2.2 g/dL (1.7-4.1); Glucose 83 mg/dL (80-110); HEMOLYSIS < 15 (0-50); Lipase 72 U/L (23-300); Sodium 137 mmol/L (137-145); Total Protein 6.3 g/dL (6.3-8.2)
[2024-05-12 17:30] VITALS: BP 106/58; PULSE 71; O2SAT 95
== END 2024-05-12 18:00 | disposition home or self-care (01) ==
PROVIDERS: Emergency Provider Emergency Medicine; Family Provider Student in an Organized Health Care Education/Training Program; PCP Family Medicine
DX: R10.10 Upper abdominal pain, unspecified (principal); K44.9 Diaphragmatic hernia without obstruction or gangrene; Z85.118 Personal history of other malignant neoplasm of bronchus and lung
CPT/HCPCS: 36415; 80053; 83690; 85025; 99283; 99284; J1642

== ENCOUNTER → 2024-08-19 07:27 | Outpatient (CLI) | payer MEDICARE, OTHER, SELFPAY ==
[2024-06-22 13:50] VITALS: BMI 33.6
--- NOTE | 2024-08-19 07:28 | DI.US.S_ITS ---
PROCEDURE: US PELVIC COMPLETE INDICATIONS: thickened endometrium; prior hx of cancer TECHNIQUE: Real-time scanning was performed of the pelvic organs, with image documentation. Additional endovaginal scanning was necessary due to incomplete visualization of the adnexal and endometrial structures by transabdominal scanning. COMPARISON: [facility], CT, CT CHEST ABDOMEN PELVIS WITH CONTRAST, 05/10/2024, 10:44. FINDINGS: Uterus: Technically difficult study due to shadowing on transvaginal exam. Uterus is anteverted and normal in size at 5.2 x 3.8 x 2.2 cm. The myometrium is homogeneous. The endometrium measures 11 mm combined thickness. Ovaries: The right ovary measures 2.8 x 1.6 x 1.4 cm, with a calculated ovarian volume of 3.3 cc. The left ovary measures 3.2 x 2.3 x 2.9 cm, with a calculated ovarian volume of 11.2 cc. The ovaries have a normal sonographic appearance. Less than 12 follicles can be seen in each ovary. No adnexal masses are seen. Other: No pathologic free abdominal or pelvic fluid. IMPRESSION: Thickened endometrium for age at 11 mm. Consider endometrial biopsy and/or MRI of the pelvis for further evaluation. Approved by: Carlos Logan M.D. on 08/19/2024 at 8:37
== END ==
PROVIDERS: Family Provider Student in an Organized Health Care Education/Training Program; PCP Family Medicine; Referring Provider Family Medicine; Visit Provider Family Medicine
DX: R93.89 Abnormal findings on diagnostic imaging of other specified body structures (principal); R10.30 Lower abdominal pain, unspecified; Z85.3 Personal history of malignant neoplasm of breast; Z78.0 Asymptomatic menopausal state
CPT/HCPCS: 76830; 76856

== ENCOUNTER 2024-09-30 12:38 | Day surgery (SDC) | payer MEDICARE, OTHER, SELFPAY ==
[2024-06-22 13:50] VITALS: BMI 33.6
[2024-09-29 09:17] VITALS: BMI 32.9
[2024-09-30] VITALS (8 sets, daily range): BP systolic 110–147; BP diastolic 59–76; PULSE 68–89; RESP 11–21; TEMP 36.2–36.7; O2SAT 96–100; BMI 32.5
--- NOTE | 2024-09-30 | PATH_ITS ---
[facility] Accession Number: [id number] No. of containers..03 Tissue . 01 Material submitted: . PART A: fallopian tube - BILATERAL FALLOPIAN TUBES AND OVARIES PART B: endocervix - ENDOCERVICAL CURETTINGS PART C: endometrium - ENDOMETRIAL CURETTINGS . 01 Diagnosis: A. BILATERAL FALLOPIAN TUBES AND OVARIES: First-described fallopian tube with benign paratubal cysts (approximately 2 mm in greatest dimension); negative for significant atypia. First-described ovary with multiple benign cortical inclusion (serous) cysts (6 mm and 9 mm). Second-described fallopian tube with rare benign paratubal cysts (2 mm in greatest dimension); negative for significant atypia. Second-described ovary with multiple benign cortical inclusion (serous) cysts (2 to 10 mm). . B. ENDOCERVICAL CURETTINGS: Portion of atypical squamous mucosa, favor a reactive etiology. Small fragments of endocervical tissue and and scant, detached strips of glandular epithelium; negative for significant atypia. Strips of endometrial epithelium; negative for significant atypia. . C. ENDOMETRIAL CURETTINGS: Scant, detached strips of glandular epithelium; negative for significant atypia. Please see comment. [facility] 10/07/2024 1817 Local . 01 Comment: Part C: Due to the scant nature of this biopsy, it may not be entirely national account representative of this patient's endometrium; additional sampling could be considered, if clinically appropriate. . 01 Electronically signed: . Val Haley MD, Pathologist NPI- [id number] . 01 Gross description: . A. Received in formalin with two patient identifiers and bilateral fallopian tubes and ovaries, is a tubo-ovarian unit designated tube and ovary 1 (tube: 4.6 x 0.5 cm; ovary: 5 grams, 3.4 x 2.3 x 1.9 cm) and are inked blue. The second tube (5.3 x 0.5 cm) and ovary (5 grams, 3.2 x 2.3 x 2.0 cm) are inked green. Both tubes have hwang smooth serosa with cystic structures up to 0.2 cm in greatest dimension filled with cloudy serous fluid. The lumina are stellate and unremarkable. Both ovaries are hwang and cerebriform, and sectioning reveals both ovaries to contain multiple thin, smooth-walled cysts ranging from 0.2 to 1.1 cm in greatest dimension and filled with clear serous fluid. No additional lesions are identified. Box Printing Machine Operator sections are submitted as follows: A1: First tube to include one-half of bisected fimbriae and cross sections. A2: First ovary. A3: Second fallopian tube to include one-half if bisected fimbriae and cross section. A4: Second ovary. B. Received in formalin with two patient identifiers and endocervical curetting, are multiple hwang soft tissue fragments admixed with mucohemorrhagic material received on friable Telfa paper aggregating to 0.8 x0 .5 x 0.1 cm. Filtered and submitted entirely in B1. C. Received in formalin with two patient identifiers and endometrial curetting, are multiple hwang soft tissue fragments admixed with mucohemorrhagic material aggregating to 0.7 x 0.5 x 0.1 cm. Filtered and submitted entirely in C1. ([id number]) /MRV 10/01/2024 [facility] Local . 01 Microscopic: . An immunohistochemical stain for p16 is performed to evaluate for block reactivity. The control stained with appropriate reactivity. . RESULTS: Block B1 P16: Negative for block immunostaining. . The absence of p16 block immunostaining mitigates against the presence of high risk HPV DNA in this biopsy. . * This test was developed and the performance characteristics were validated by [employer]. It has not been cleared or approved by the U.S. Food and Drug Administration. . 01 Pathologist provided ICD-10: R93.89, N83.8, Z85.3 . 01 CPT . 254691, 224737, 522035, S57170 Specimen Comment: A courtesy copy of this report has been sent to [phone] Performed at: [address] [facility] [id number] MD Elpidio Izaguirre MD Phone: [phone]
--- NOTE | 2024-09-30 08:51 | PM.PREOP ---
Pre-operative Note COVID-19 COVID-19 status: Not tested Interval Note History & Physical reviewed/Exam performed by Physician: Yes Changes to H&P: No
[2024-09-30] MEDS: LACTATED RINGERS 1,000 ML 42 ML IV (14:04)
[2024-09-30] MEDS: ACETAMINOPHEN IV 1,000 MG/100 ML VIAL 400 MG IV (14:04)
--- NOTE | 2024-09-30 14:15 | SUR.PREOP ---
Accessed right chest wall portacath using sterile technique with 20 gauge, 1 inch power port needle. Accessed without difficulty, one attempt, good blood return noted, flused without difficulty with 20 mls normal saline. Dressing applied. Tolerated well.
[2024-09-30] MEDS: CEFAZOLIN 2 GM/100 ML PREMIX 100 ML IV (14:23)
[2024-09-30] MEDS: BUPIVACAINE 0.5% W/ EPI (PF) 30 ML VIAL INJ (15:01)
--- NOTE | 2024-09-30 15:59 | PM.GYNOP.1 ---
Operative Date/Time/Diagnoses Date of procedure: 09/30/24 Time of procedure: 14:45 Pre-op diagnosis: Left ovarian enlargement Endometrial thickening on ultrasound History breast cancer, bilateral Post-op diagnosis: same Procedure & Clinicians Procedure: Procedures Operation Date: 09/30/24 14:15 Actual Procedure Side Surgeon p Laparoscopic Salpingo-oophorectomy Bilateral Brian Sommers MD s Hysteroscopy with D&C, Possible Biopsies Brian Sommers MD Indications: Yennifer is a 63-year-old LMP at age 46 who presents for evaluation thickened endometrial stripe recent MR and pelvic ultrasound. Pelvic ultrasound performed at [facility] on 08/19/2024 shows: COMPARISON: [facility], CT, CT CHEST ABDOMEN PELVIS WITH CONTRAST, 05/10/2024, 10:44. FINDINGS: Uterus: Technically difficult study due to shadowing on transvaginal exam. Uterus is anteverted and normal in size at 5.2 x 3.8 x 2.2 cm. The myometrium is homogeneous. The endometrium measures 11 mm combined thickness. Ovaries: The right ovary measures 2.8 x 1.6 x 1.4 cm, with a calculated ovarian volume of 3.3 cc. The left ovary measures 3.2 x 2.3 x 2.9 cm, with a calculated ovarian volume of 11.2 cc. The ovaries have a normal sonographic appearance. Less than 12 follicles can be seen in each ovary. No adnexal masses are seen. Other: No pathologic free abdominal or pelvic fluid. IMPRESSION: Thickened endometrium for age at 11 mm. Consider endometrial biopsy and/or MRI of the pelvis for further evaluation. The patient has not experienced any postmenopausal bleeding. Her adjuvant treatment for breast cancer has never included tamoxifen but she is on letrozole. After considering all options, the patient wishes to proceed with laparoscopic bilateral salpingo-oophorectomy due to ovarian asymmetry and prior diagnosis of breast cancer, hysteroscopy with possible biopsies, and dilation and curettage of the uterus due to endometrial thickening. She presents today for her scheduled surgery. Surgeon: Brian Sommers Anesthesia Type: General Operative Notes Findings: The pelvis is essentially normal with the exception that the left ovary is significantly larger than the right. No gross abnormalities were seen on the surface of the ovary. There was a drape of adhesions involving the omentum at the site of her prior cholecystectomy incision. These adhesions were left in-situ. 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 Both tubal ostia were visualized. Closure Type: primary Specimen(s): endometrial curettings, left tube & ovary, right tube & ovary and other (Endocervical curettings) Estimated blood loss (mL): 10 Blood products transfused: none Procedure in detail: With the patient under satisfactory general anesthesia in the modified dorsal lithotomy position, the perineum, vagina, and abdomen were prepped and draped for IUD removal and laparoscopic bilateral salpingectomy. A pre-surgical safety time-out was then taken in accordance with [facility] Main OR protocols. The umbilicus was then infiltrated with 0.5% Marcaine with epinephrine and 2.5 cm transverse incision was made in the inferior aspect of the umbilicus. The dissection was carried downward to the fascia which was grasped with 2 Alexus clamps and incised transversely. The dissection was then carried down through the preperitoneal fat and into the abdominal cavity without issue. 0 Vicryl stay sutures were then placed at both angles of the vaginal incision. The Carson cannula was then placed through the fascial and peritoneal defect into the abdominal cavity and secured in place with the stay sutures. Proper placement of the aside cannula was confirmed with laparoscopic visualization and insufflation of the abdomen continued. A 2nd and 3rd 5 mm laparoscopic port were placed in the right and left mid quadrants using a similar technique and using a 3 puncture technique, the abdomen and pelvis were visualized with the findings as noted above. The distal aspect of the left fallopian tube was then grasped with a grasping forceps and using a Power Seal device, utero-ovarian ligament was coagulated and divided. The dissection using the Power Seal continuing across the mesosalpinx to the cornua where the utero-ovarian ligament and fallopian tube were coagulated and divided. Attention was then turned to the right adnexa with distal tube grasped with a grasping forcep. The Power Seal device was then used to coagulate infundibulopelvic ligament and the dissection was carried across the mesosalpinx to the cornua where the utero-ovarian ligament and fallopian tube on the right side wereamputated at the cornua following coagulation proximal tube the Power Seal device. Pelvis was inspected and there were no abnormalities noted following bilateral salpingectomy. The pneumoperitoneum was then vented and the ports removed from the abdominal wall. The umbilical incision fascia was closed with interrupted 0 Vicryl was and the skin of each port incision was then closed with 4-0 Monocryl using inverted interrupted stitches and skin glue was applied. Appropriate dressings were then applied, and attention directed towards performance of hysteroscopy with D&C. A bivalve speculum was placed in the vagina and the cervix visualized. The anterior lip of the cervix was grasped with a single-tooth tenaculum and the endocervical canal sequentially dilated to 7 mm. Hysteroscope was then placed through the endocervical canal and using saline as a distention medium, the endometrial cavity was inspected with the findings as noted above. Absent any focal lesions within the endometrial cavity, the scope was removed and fractional D&C performed with separate endometrial and endocervical curetting specimens submitted for pathologic evaluation. The tenaculum was removed from the anterior lip of the cervix and no bleeding was encountered. The patient was then awakened, and transferred to the PACU for a period of observation after having tolerated the procedure well. Complications: none Post-operative Condition: stable Disposition: PACU Plan for aftercare: Routine post operative care with follow-up planned for 2 weeks after surgery
[2024-09-30] MEDS: MORPHINE 10 MG/ML INJ IV (16:01)
[2024-09-30] MEDS: ONDANSETRON 4 MG/2 ML INJ IV (16:01)
[2024-09-30] MEDS: OXYCODONE IR 5 MG TABLET PO (16:01)
--- NOTE | 2024-09-30 16:52 | SUR.PHASEII ---
Chiqui Jeff RN heparinized port with 500 units heparin and D/edna port IV . Placed a gauze dressing on top of port site. Pt tolerated well.
--- NOTE | 2024-10-01 09:32 | PM.GYNOP.1 ---
Operative Date/Time/Diagnoses Date of procedure: 10/01/24 Time of procedure: 08:00 Pre-op diagnosis: Right ovarian cystic mass Endometrial mass Post-op diagnosis: same Procedure & Clinicians Procedure: Procedures Operation Date: 09/30/24 14:15 Actual Procedure Side Surgeon p Laparoscopic Salpingo-oophorectomy Bilateral Brian Sommers MD s Hysteroscopy with resection of endometrial mass, dilation and curettage of the uterus Brian Sommers MD Indications: Yennifer is a 63-year-old LMP at age 46 who presents for evaluation thickened endometrial stripe recent MR and pelvic ultrasound. Pelvic ultrasound performed at [facility] on 08/19/2024 shows: COMPARISON: [facility], CT, CT CHEST ABDOMEN PELVIS WITH CONTRAST, 05/10/2024, 10:44. FINDINGS: Uterus: Technically difficult study due to shadowing on transvaginal exam. Uterus is anteverted and normal in size at 5.2 x 3.8 x 2.2 cm. The myometrium is homogeneous. The endometrium measures 11 mm combined thickness. Ovaries: The right ovary measures 2.8 x 1.6 x 1.4 cm, with a calculated ovarian volume of 3.3 cc. The left ovary measures 3.2 x 2.3 x 2.9 cm, with a calculated ovarian volume of 11.2 cc. The ovaries have a normal sonographic appearance. Less than 12 follicles can be seen in each ovary. No adnexal masses are seen. Other: No pathologic free abdominal or pelvic fluid. IMPRESSION: Thickened endometrium for age at 11 mm. Consider endometrial biopsy and/or MRI of the pelvis for further evaluation. The patient has not experienced any postmenopausal bleeding. Her adjuvant treatment for breast cancer has never included tamoxifen but she is on letrozole. After considering all options, the patient wishes to proceed with laparoscopic bilateral salpingo-oophorectomy due to ovarian asymmetry and prior diagnosis of breast cancer, hysteroscopy with possible biopsies, and dilation and curettage of the uterus due to endometrial thickening. She presents today for her scheduled surgery. Surgeon: Brian Sommers Anesthesia Type: General Operative Notes Findings: The right ovary is enlarged and cystic with the fluid inside crystal clear. The left ovary appears to be in size and shape. Both fallopian appeared. Uterus is atrophic and neither the anterior or posterior cul-de-sac demonstrate any significant abnormality. Hysteroscopy shows a normal endometrial cavity with atrophic endometrium except for a broad-based polypoid mass arising from the anterior surface lower uterine segment endometrial mass was resected in toto and submitted as a separate pathologic specimen. Closure Type: primary Specimen(s): endometrial curettings, endometrial polyp, left tube & ovary, right tube & ovary and other (Endocervical curettage) Estimated blood loss (mL): 10 Blood products transfused: none Procedure in detail: With the patient under satisfactory general anesthesia in the modified dorsal lithotomy position, the perineum, vagina, and abdomen were prepped and draped for IUD removal and laparoscopic bilateral salpingectomy. A pre-surgical safety time-out was then taken in accordance with [facility] Main OR protocols. The umbilicus was then infiltrated with 0.5% Marcaine with epinephrine and 2.5 cm transverse incision was made in the inferior aspect of the umbilicus. The dissection was carried downward to the fascia which was grasped with 2 Alexus clamps and incised transversely. The dissection was then carried down through the preperitoneal fat and into the abdominal cavity without issue. 0 Vicryl stay sutures were then placed at both angles of the vaginal incision. The Carson cannula was then placed through the fascial and peritoneal defect into the abdominal cavity and secured in place with the stay sutures. Proper placement of the aside cannula was confirmed with laparoscopic visualization and insufflation of the abdomen continued. A 2nd and 3rd 5 mm laparoscopic port were placed in the right and left mid quadrants using a similar technique and using a 3 puncture technique, the abdomen and pelvis were visualized with the findings as noted above. The distal aspect of the left fallopian tube was then grasped with a grasping forceps and using a Power Seal device, utero-ovarian ligament was coagulated and divided. The dissection using the Power Seal continuing across the mesosalpinx to the cornua where the utero-ovarian ligament and fallopian tube were coagulated and divided. Attention was then turned to the right adnexa with distal tube grasped with a grasping forcep. The Power Seal device was then used to coagulate infundibulopelvic ligament and the dissection was carried across the mesosalpinx to the cornua where the utero-ovarian ligament and fallopian tube on the right side wereamputated at the cornua following coagulation proximal tube the Power Seal device. Pelvis was inspected and there were no abnormalities noted following bilateral salpingectomy. The pneumoperitoneum was then vented and the ports removed from the abdominal wall. The umbilical incision fascia was closed with interrupted 0 Vicryl was and the skin of each port incision was then closed with 4-0 Monocryl using inverted interrupted stitches and skin glue was applied. Appropriate dressings were then applied, and attention directed towards performance of hysteroscopy with D&C. A bivalve speculum was placed in the vagina and the cervix visualized. The anterior lip of the cervix was grasped with a single-tooth tenaculum and the endocervical canal sequentially dilated to 7 mm. Hysteroscope was then placed through the endocervical canal and using saline as a distention medium, the endometrial cavity was inspected with the findings as noted above. Absent any focal lesions within the endometrial cavity, the scope was removed and fractional D&C performed with separate endometrial and endocervical curetting specimens submitted for pathologic evaluation. The tenaculum was removed from the anterior lip of the cervix and no bleeding was encountered. The patient was then awakened, and transferred to the PACU for a period of observation after having tolerated the procedure well. Complications: none Post-operative Condition: stable Disposition: PACU Plan for aftercare: Routine postoperative care with follow-up planned for 2 weeks after surgery
== END 2024-09-30 16:56 | disposition home or self-care (01) ==
PROVIDERS: Family Provider Student in an Organized Health Care Education/Training Program; PCP Family Medicine; Referring Provider Obstetrics & Gynecology; Visit Provider Obstetrics & Gynecology
PROC: 0UT74ZZ Resection of Bilateral Fallopian Tubes, Percutaneous Endoscopic Approach (ICD-10-PCS; CPT 58661; principal; 2024-09-30 14:15)
PROC: 0UDB8ZZ Extraction of Endometrium, Via Natural or Artificial Opening Endoscopic (ICD-10-PCS; CPT 58558; 2024-09-30 14:15)
DX: R93.5 Abnormal findings on diagnostic imaging of other abdominal regions, including retroperitoneum (principal); K66.0 Peritoneal adhesions (postprocedural) (postinfection); Q51.3 Bicornate uterus; Z85.3 Personal history of malignant neoplasm of breast; N83.8 Other noninflammatory disorders of ovary, fallopian tube and broad ligament; N83.202 Unspecified ovarian cyst, left side; N83.201 Unspecified ovarian cyst, right side
CPT/HCPCS: 58661; 58558; J0134; J0330; J0690; J1100; J1642; J2250; J2270; J2405; J2704; J3010

== ENCOUNTER → 2024-12-28 11:33 | Outpatient (CLI) | payer MEDICARE, OTHER, SELFPAY ==
[2024-06-22 13:50] VITALS: BMI 33.6
== END ==
PROVIDERS: Family Provider Student in an Organized Health Care Education/Training Program; PCP Family Medicine; Referring Provider Internal Medicine Hematology & Oncology; Visit Provider Internal Medicine Hematology & Oncology
DX: D3A.098 Benign carcinoid tumors of other sites (principal); C7A.098 Malignant carcinoid tumors of other sites
CPT/HCPCS: 83497